=== PATIENT | male | born 1950 | race Caucasian/White ===

== ENCOUNTER 2018-08-25 11:41 | Inpatient (IN) | payer MEDICARE, BC, OTHER ==
[2018-08-25 12:20] LABS: BASO # 0.1 10^3/uL (0.0-0.2); BASO % 0.4 % (0.0-1.0); EOS % 0.1 % (0.0-3.0); HEMATOCRIT 49.1 % (42.0-52.0); HEMOGLOBIN 16.6 g/dl (13.5-17.5); IMMATURE GRANULOCYTE % 0.7 % (0-3.0); LYMPH # 0.5 10^3/uL (1.5-4.5); LYMPH % 4.3 % (24.0-44.0); MEAN CORPUSCULAR HEMOGLOBIN 30.8 pg (27.0-33.0); MEAN CORPUSCULAR HGB CONC 33.8 g/dl (32.0-36.5); MEAN CORPUSCULAR VOLUME 91.1 fl (80.0-96.0); MONO # 0.4 10^3/uL (0.0-0.8); MONO % 3.1 % (0.0-5.0); NEUTROPHILS # 10.9 10^3/uL (1.8-7.7); NEUTROPHILS % 91.4 % (36.0-66.0); PLATELET COUNT, AUTOMATED 193 10^3/uL (150-450); RED BLOOD COUNT 5.39 10^6/uL (4.30-6.10); RED CELL DISTRIBUTION WIDTH 11.9 % (11.5-14.5); WHITE BLOOD COUNT 11.9 10^3/uL (4.0-10.0)
[2018-08-25] MEDS: ONDANSETRON 4MG/2ML VIAL (J2405) IV ×3 (12:32→23:09)
[2018-08-25] MEDS: LABETALOL HCL 100 MG/20 ML VIAL IV ×2 (12:33→13:52)
[2018-08-25 12:49] LABS: INR 0.97
[2018-08-25 12:50] LABS: PARTIAL THROMBOPLASTIN TIME 29.7 SECONDS (25.4-37.6)
[2018-08-25 12:56] LABS: ALBUMIN 4.2 GM/DL (3.2-5.2); ALBUMIN/GLOBULIN RATIO 1.45 (1.00-1.93); ALKALINE PHOSPHATASE 89 U/L (45-117); ALT/SGPT 56 U/L (12-78); ANION GAP 16 MEQ/L (8-16); AST/SGOT 24 U/L (7-37); BILIRUBIN,DIRECT 0.2 MG/DL (0.0-0.2); BILIRUBIN,TOTAL 0.5 MG/DL (0.2-1.0); BLOOD UREA NITROGEN 25 MG/DL (7-18); CALCIUM LEVEL 9.2 MG/DL (8.8-10.2); CARBON DIOXIDE LEVEL 23 MEQ/L (21-32); CHLORIDE LEVEL 103 MEQ/L (98-107); CPK CREATINE PHOSPHOKINASE 103 U/L (39-308); CREATININE FOR GFR 1.44 MG/DL (0.70-1.30); GLOMERULAR FILTRATION RATE 51.9 (>49); GLUCOSE, FASTING 243 MG/DL (70-100); LIPASE 137 U/L (73-393); MB/CK RELATIVE INDEX 3.59 (< OR =4); POTASSIUM SERUM 3.9 MEQ/L (3.5-5.1); SODIUM LEVEL 142 MEQ/L (136-145); TOTAL PROTEIN 7.1 GM/DL (6.4-8.2); TROPONIN I < 0.02 NG/ML (< 0.10)
[2018-08-25] MEDS: hydrALAZINE INJ 20 MG/ML VIAL IV ×2 (14:40→20:28)
[2018-08-25] MEDS ORDERED: ACETAMINOPHEN TAB 650MG DOSE (2X325MG) PO (14:45)
[2018-08-25] MEDS: GASTROGRAFIN SOLUTION 30ML PO ×2 (14:59→16:00)
[2018-08-25] MEDS ORDERED: GLUCAGON FOR INJ 1 MG VIAL (J1610) SC (15:00)
[2018-08-25] MEDS ORDERED: DEXTROSE 50% 50 ML SYRINGE IV (15:00)
[2018-08-25] MEDS ORDERED: GLUCOSE 4 GM CHEW TABLET PO (15:00)
[2018-08-25 15:54] LABS: ESTIMATED AVERAGE GLUCOSE 186 MG/DL (60-110); HEMOGLOBIN A1c 8.1 %
[2018-08-25] MEDS ORDERED: ISOVUE-370 76% 100ML VIAL (Q9967) As Ordered (16:07)
[2018-08-25] MEDS: QUINAPRIL 20 MG TAB PO (16:35)
[2018-08-25] MEDS: ASPIRIN 81 MG ENTERIC TAB PO (16:35)
[2018-08-25] MEDS: ATORVASTATIN 20 MG TAB PO (16:35)
[2018-08-25] MEDS: ATENOLOL 25 MG TAB PO (16:35)
[2018-08-25] MEDS: NS 1,000 ML IV (16:39)
[2018-08-25] MEDS: HumaLOG INSULIN (NovoLOG) PER UNIT SC ×2 (17:30→21:00)
[2018-08-25] MEDS: PROMETHAZINE INJ 25 MG/ML VIAL (J2550) IV (17:40)
[2018-08-25 18:44] LABS: CPK CREATINE PHOSPHOKINASE 119 U/L (39-308); MB/CK RELATIVE INDEX 3.11 (< OR =4); TROPONIN I 0.02 NG/ML (< 0.10)
[2018-08-25] MEDS: HEPARIN SOD (PORCINE) 5000 UNITS/ML VIAL SQ (21:37)
[2018-08-25 21:38] LABS: BEDSIDE GLUCOSE 208 MG/DL (80-115)
[2018-08-26 02:40] LABS: CPK CREATINE PHOSPHOKINASE 178 U/L (39-308); MB/CK RELATIVE INDEX 2.25 (< OR =4); TROPONIN I 0.04 NG/ML (< 0.10)
[2018-08-26] MEDS: hydrALAZINE INJ 20 MG/ML VIAL IV (03:49)
[2018-08-26] MEDS: NS 1,000 ML IV (03:49)
[2018-08-26] MEDS: CALCIUM CARBONATE 500 MG CHEW U/D PO (04:45)
[2018-08-26 06:15] LABS: BASO % 0.2 % (0.0-1.0); EOS % 0.2 % (0.0-3.0); HEMATOCRIT 41.1 % (42.0-52.0); IMMATURE GRANULOCYTE % 0.5 % (0-3.0); LYMPH # 0.8 10^3/uL (1.5-4.5); LYMPH % 6.2 % (24.0-44.0); MEAN CORPUSCULAR HEMOGLOBIN 30.4 pg (27.0-33.0); MEAN CORPUSCULAR HGB CONC 33.3 g/dl (32.0-36.5); MEAN CORPUSCULAR VOLUME 91.3 fl (80.0-96.0); MONO # 1.4 10^3/uL (0.0-0.8); MONO % 10.5 % (0.0-5.0); NEUTROPHILS # 10.7 10^3/uL (1.8-7.7); NEUTROPHILS % 82.4 % (36.0-66.0); PLATELET COUNT, AUTOMATED 190 10^3/uL (150-450); RED CELL DISTRIBUTION WIDTH 12.4 % (11.5-14.5)
[2018-08-26 06:20] LABS: HEMOGLOBIN 13.7 g/dl (13.5-17.5)
[2018-08-26 06:40] LABS: ALBUMIN 3.2 GM/DL (3.2-5.2); ALBUMIN/GLOBULIN RATIO 1.14 (1.00-1.93); ALKALINE PHOSPHATASE 63 U/L (45-117); ALT/SGPT 40 U/L (12-78); ANION GAP 9 MEQ/L (8-16); AST/SGOT 17 U/L (7-37); BILIRUBIN,TOTAL 0.4 MG/DL (0.2-1.0); BLOOD UREA NITROGEN 23 MG/DL (7-18); CALCIUM LEVEL 8.5 MG/DL (8.8-10.2); CARBON DIOXIDE LEVEL 24 MEQ/L (21-32); CHLORIDE LEVEL 110 MEQ/L (98-107); CREATININE FOR GFR 1.39 MG/DL (0.70-1.30); GLOMERULAR FILTRATION RATE 54.1 (>49); GLUCOSE, FASTING 237 MG/DL (70-100); MAGNESIUM LEVEL 1.9 MG/DL (1.8-2.4); POTASSIUM SERUM 3.7 MEQ/L (3.5-5.1); SODIUM LEVEL 143 MEQ/L (136-145)
[2018-08-26] MEDS: QUINAPRIL 20 MG TAB PO (09:00)
[2018-08-26] MEDS: HumaLOG INSULIN (NovoLOG) PER UNIT SC ×4 (09:00→19:55)
[2018-08-26] MEDS: ATENOLOL 25 MG TAB PO (09:00)
[2018-08-26] MEDS: HEPARIN SOD (PORCINE) 5000 UNITS/ML VIAL SQ ×2 (09:01→19:54)
[2018-08-26] MEDS: ASPIRIN 81 MG ENTERIC TAB PO (09:01)
[2018-08-26] MEDS: **hydrALAZINE HCL** 25 MG TAB PO ×3 (09:01→19:54)
[2018-08-26] MEDS: ATORVASTATIN 20 MG TAB PO (09:02)
[2018-08-26] MEDS: ONDANSETRON 4MG/2ML VIAL (J2405) IV (09:02)
[2018-08-26] MEDS: MULTIVITAMINS/MINERALS THERAP 1 TAB PO (09:03)
[2018-08-26] MEDS: LEVEMIR (INSULIN DETEMIR) 1 UNITS/0.01ML SC (09:03)
[2018-08-26 10:28] LABS: CPK CREATINE PHOSPHOKINASE 227 U/L (39-308); MB/CK RELATIVE INDEX 2.03 (< OR =4); TROPONIN I 0.05 NG/ML (< 0.10)
[2018-08-26 11:50] LABS: BEDSIDE GLUCOSE 293 MG/DL (80-115)
[2018-08-26] MEDS: PHENYLEPHRINE 2.5% OPHTH SOL 2ML OU (16:28)
[2018-08-26] MEDS: PROPARACAINE 0.5% OPHTH SOL 15ML OU (16:28)
[2018-08-26] MEDS: TROPICAMIDE 1% OPHTH SOLN 2ML OU (16:29)
[2018-08-26 17:36] LABS: BEDSIDE GLUCOSE 207 MG/DL (80-115)
[2018-08-26] MEDS ORDERED: SLF 3 ML SYR IV (18:00)
[2018-08-26] MEDS: SLF 3 ML SYR IV (19:55)
[2018-08-26 19:58] LABS: BEDSIDE GLUCOSE 233 MG/DL (80-115)
[2018-08-26] MEDS: amLODIPine 10 MG TAB PO (23:14)
[2018-08-26] MEDS: GLIMEPIRIDE 2 MG TAB PO (23:15)
[2018-08-27] MEDS: hydrALAZINE INJ 20 MG/ML VIAL IV (03:55)
[2018-08-27] MEDS: SLF 3 ML SYR IV ×3 (05:58→20:26)
[2018-08-27 06:13] LABS: BASO # 0.1 10^3/uL (0.0-0.2); BASO % 0.6 % (0.0-1.0); EOS # 0.2 10^3/uL (0.0-0.50); EOS % 2.7 % (0.0-3.0); HEMATOCRIT 41.2 % (42.0-52.0); HEMOGLOBIN 13.8 g/dl (13.5-17.5); IMMATURE GRANULOCYTE % 0.6 % (0-3.0); LYMPH # 1.1 10^3/uL (1.5-4.5); LYMPH % 13.9 % (24.0-44.0); MEAN CORPUSCULAR HEMOGLOBIN 30.3 pg (27.0-33.0); MEAN CORPUSCULAR HGB CONC 33.5 g/dl (32.0-36.5); MEAN CORPUSCULAR VOLUME 90.4 fl (80.0-96.0); MONO % 12.6 % (0.0-5.0); NEUTROPHILS # 5.4 10^3/uL (1.8-7.7); NEUTROPHILS % 69.6 % (36.0-66.0); PLATELET COUNT, AUTOMATED 149 10^3/uL (150-450); RED BLOOD COUNT 4.56 10^6/uL (4.30-6.10); RED CELL DISTRIBUTION WIDTH 12.2 % (11.5-14.5); WHITE BLOOD COUNT 7.8 10^3/uL (4.0-10.0)
[2018-08-27 06:34] LABS: ALBUMIN 3.3 GM/DL (3.2-5.2); ALBUMIN/GLOBULIN RATIO 1.22 (1.00-1.93); ALKALINE PHOSPHATASE 68 U/L (45-117); ALT/SGPT 41 U/L (12-78); ANION GAP 8 MEQ/L (8-16); AST/SGOT 18 U/L (7-37); BILIRUBIN,TOTAL 0.5 MG/DL (0.2-1.0); BLOOD UREA NITROGEN 20 MG/DL (7-18); CALCIUM LEVEL 8.4 MG/DL (8.8-10.2); CARBON DIOXIDE LEVEL 26 MEQ/L (21-32); CHLORIDE LEVEL 110 MEQ/L (98-107); CREATININE FOR GFR 1.29 MG/DL (0.70-1.30); GLUCOSE, FASTING 205 MG/DL (70-100); MAGNESIUM LEVEL 2.1 MG/DL (1.8-2.4); POTASSIUM SERUM 3.6 MEQ/L (3.5-5.1); SODIUM LEVEL 144 MEQ/L (136-145)
[2018-08-27] MEDS: cloNIDine 0.2 MG TAB PO ×3 (06:57→17:35)
[2018-08-27] MEDS: HumaLOG INSULIN (NovoLOG) PER UNIT SC ×4 (08:19→20:25)
[2018-08-27] MEDS: LEVEMIR (INSULIN DETEMIR) 1 UNITS/0.01ML SC (08:20)
[2018-08-27] MEDS: HEPARIN SOD (PORCINE) 5000 UNITS/ML VIAL SQ ×2 (08:20→20:27)
[2018-08-27] MEDS: ATENOLOL 25 MG TAB PO (08:21)
[2018-08-27] MEDS: ATORVASTATIN 20 MG TAB PO (08:22)
[2018-08-27] MEDS: MULTIVITAMINS/MINERALS THERAP 1 TAB PO (08:22)
[2018-08-27] MEDS: QUINAPRIL 20 MG TAB PO (08:22)
[2018-08-27] MEDS: SITagliptin 50 MG TAB (JANUVIA) PO (08:22)
[2018-08-27] MEDS: GLIMEPIRIDE 2 MG TAB PO ×2 (08:23→20:25)
[2018-08-27] MEDS: ASPIRIN 81 MG ENTERIC TAB PO (08:23)
[2018-08-27 11:57] LABS: BEDSIDE GLUCOSE 236 MG/DL (80-115)
[2018-08-27] MEDS: cloNIDine 0.1 MG TAB PO ×3 (12:08→20:24)
[2018-08-27 16:47] LABS: BEDSIDE GLUCOSE 103 MG/DL (80-115)
[2018-08-27 19:46] LABS: BEDSIDE GLUCOSE 208 MG/DL (80-115)
[2018-08-27] MEDS: amLODIPine 10 MG TAB PO (20:24)
[2018-08-28] MEDS: cloNIDine 0.1 MG TAB PO ×2 (00:40→05:48)
[2018-08-28] MEDS: cloNIDine 0.2 MG TAB PO ×2 (05:48)
[2018-08-28] MEDS: SLF 3 ML SYR IV (05:49)
[2018-08-28 06:45] LABS: BASO # 0.1 10^3/uL (0.0-0.2); BASO % 0.9 % (0.0-1.0); EOS # 0.4 10^3/uL (0.0-0.50); EOS % 6.1 % (0.0-3.0); HEMATOCRIT 40.9 % (42.0-52.0); HEMOGLOBIN 13.3 g/dl (13.5-17.5); IMMATURE GRANULOCYTE % 0.9 % (0-3.0); LYMPH # 1.2 10^3/uL (1.5-4.5); LYMPH % 17.6 % (24.0-44.0); MEAN CORPUSCULAR HGB CONC 32.5 g/dl (32.0-36.5); MEAN CORPUSCULAR VOLUME 92.1 fl (80.0-96.0); MONO # 0.9 10^3/uL (0.0-0.8); MONO % 12.4 % (0.0-5.0); NEUTROPHILS # 4.3 10^3/uL (1.8-7.7); NEUTROPHILS % 62.1 % (36.0-66.0); PLATELET COUNT, AUTOMATED 149 10^3/uL (150-450); RED BLOOD COUNT 4.44 10^6/uL (4.30-6.10); WHITE BLOOD COUNT 6.9 10^3/uL (4.0-10.0)
[2018-08-28 07:08] LABS: ALBUMIN/GLOBULIN RATIO 1.07 (1.00-1.93); ALKALINE PHOSPHATASE 67 U/L (45-117); ALT/SGPT 49 U/L (12-78); ANION GAP 8 MEQ/L (8-16); AST/SGOT 27 U/L (7-37); BILIRUBIN,TOTAL 0.7 MG/DL (0.2-1.0); BLOOD UREA NITROGEN 20 MG/DL (7-18); CALCIUM LEVEL 7.9 MG/DL (8.8-10.2); CARBON DIOXIDE LEVEL 26 MEQ/L (21-32); CHLORIDE LEVEL 106 MEQ/L (98-107); CREATININE FOR GFR 1.37 MG/DL (0.70-1.30); GLUCOSE, FASTING 197 MG/DL (70-100); MAGNESIUM LEVEL 1.9 MG/DL (1.8-2.4); POTASSIUM SERUM 3.6 MEQ/L (3.5-5.1); SODIUM LEVEL 140 MEQ/L (136-145); TOTAL PROTEIN 5.8 GM/DL (6.4-8.2)
[2018-08-28] MEDS: HumaLOG INSULIN (NovoLOG) PER UNIT SC (08:02)
[2018-08-28] MEDS: HEPARIN SOD (PORCINE) 5000 UNITS/ML VIAL SQ (08:02)
[2018-08-28] MEDS: ATORVASTATIN 20 MG TAB PO (08:03)
[2018-08-28] MEDS: LEVEMIR (INSULIN DETEMIR) 1 UNITS/0.01ML SC (08:03)
[2018-08-28] MEDS: QUINAPRIL 20 MG TAB PO (08:03)
[2018-08-28] MEDS: ATENOLOL 25 MG TAB PO (08:04)
[2018-08-28] MEDS: GLIMEPIRIDE 2 MG TAB PO (08:04)
[2018-08-28] MEDS: MULTIVITAMINS/MINERALS THERAP 1 TAB PO (08:04)
[2018-08-28] MEDS: ASPIRIN 81 MG ENTERIC TAB PO (08:04)
[2018-08-28] MEDS: SITagliptin 50 MG TAB (JANUVIA) PO (08:05)
[2018-09-01 00:07] LABS: HSV TYPE I IgM AB <1:10 titer (<1:10); HSV TYPE II IgG SPECIFIC <0.91 index (0.00-0.90); HSV TYPE II IgM ABY <1:10 titer (<1:10)
== END 2018-08-28 11:13 | disposition home or self-care (01) | DRG 123 ==
LOC: M MSPAV 08-27 21:07 → M ED 11:41 → M ED INP 15:55 → M PCU 21:09
DX: H49.22 Sixth [abducent] nerve palsy, left eye (principal); I12.9 Hypertensive chronic kidney disease with stage 1 through stage 4 chronic kidney disease, or unspecified chronic kidney disease; E78.5 Hyperlipidemia, unspecified; E66.9 Obesity, unspecified; I16.0 Hypertensive urgency; N18.3 Chronic kidney disease, stage 3 (moderate); E11.22 Type 2 diabetes mellitus with diabetic chronic kidney disease; R11.2 Nausea with vomiting, unspecified; J30.2 Other seasonal allergic rhinitis; H35.033 Hypertensive retinopathy, bilateral; H10.13 Acute atopic conjunctivitis, bilateral; H53.2 Diplopia; E27.8 Other specified disorders of adrenal gland; K44.9 Diaphragmatic hernia without obstruction or gangrene; K21.0 Gastro-esophageal reflux disease with esophagitis; Z90.49 Acquired absence of other specified parts of digestive tract; Z96.641 Presence of right artificial hip joint; Z79.84 Long term (current) use of oral hypoglycemic drugs; Z68.35 Body mass index [BMI] 35.0-35.9, adult; Z79.82 Long term (current) use of aspirin; Z79.899 Other long term (current) drug therapy

== ENCOUNTER → 2019-01-20 | Outpatient (REF) | payer MEDICARE, OTHER ==
[~2019-01-20] MED LIST: ACCU1TAB2 PO; AMLO10TA5 PO; ASPI1TAB15 PO; ATEN25TA PO; ATOR1TAB21 PO; CLONI1TA PO; FISH1000 PO; GLIM4TAB PO; JANU50TA25 PO; QUIN1TAB4 PO; QUIN324C2 PO; TRES1INJ2 SQ; TRUL0.5I SQ; VITMTA PO
[2019-01-20 14:15] LABS: AMORPHOUS SEDIMENT SMALL (NEGATIVE); APPEARANCE, URINE HAZY (CLEAR); BACTERIA, URINE AUTO NEGATIVE (NEGATIVE); BILIRUBIN, URINE AUTO NEGATIVE (NEGATIVE); BLOOD, URINE BLOOD NEGATIVE (NEGATIVE); CALCIUM OXALATE CRYSTALS SMALL; COLOR, URINE YELLOW (YELLOW); GLUCOSE, URINE (UA) AUTO 3+ mg/dL (NEGATIVE); KETONE, URINE AUTO NEGATIVE (NEGATIVE); LEUKOCYTE ESTERASE, URINE AUTO 1+ (NEGATIVE); NITRITE, URINE AUTO NEGATIVE (NEGATIVE); PROTEIN, URINE AUTO 1+ mg/dL (NEGATIVE); RBC, URINE AUTO 2 /HPF (0-3); SQUAMOUS EPITHELIAL CELL UR AU 1 /HPF (0-6); UROBILINOGEN, URINE AUTO 0.2 mg/dL (0.0-2.0); WBC, URINE AUTO 16 /HPF (0-3)
== END ==
LOC: M LAB REF 13:09
PROVIDERS: ATTEND Nurse Practitioner Women's Health
DX: R97.20 Elevated prostate specific antigen [PSA] (principal)
CPT/HCPCS: 81001; 87086; G0463

== ENCOUNTER → 2019-02-16 | Outpatient (CLI) | payer MEDICARE, OTHER ==
--- NOTE | 2019-02-16 14:26 | REP ---
Prostate sonography: History: Elevated PSA Sonographic findings: Trans rectal prostate sonography demonstrates unremarkable seminal vesicles. Prostate gland is heterogeneously enlarged with calcifications and cystic changes noted. Glandular dimensions are measured at 4.6 x 4.1 x 5.4 cm with a calculated glandular volume of 52.3 ml. Transrectal sonographic guidance is provided to Dr. Gregorio who performed trans rectal ultrasound guided needle biopsy procedure . Electronically Signed by Rolando Pritchett MD 02/16/2019 02:18 P
== END ==
LOC: M SMT PRO 09:50
PROVIDERS: ATTEND Urology
DX: C61 Malignant neoplasm of prostate (principal)
CPT/HCPCS: 55700; 76872; 76942; G0416

== ENCOUNTER → 2019-03-04 | Outpatient (CLI) | payer MEDICARE, BC, OTHER ==
[~2019-03-04] MED LIST changes: +ISOVUE-370 76% 125ML VIAL (Q9967 PER ML) As Ordered ONE
--- NOTE | 2019-03-04 10:22 | REP ---
CT study abdomen and pelvis with IV but without oral contrast: History: Prostate carcinoma. Comparison CT study August 25, 2018. CT contrast dose: 100 ml of intravenous Isovue 370. CT findings: Digital preliminary spot worker radiograph demonstrates clips in the right lower quadrant post appendectomy, a right hip prosthesis, and a large left urinary tract calculus in the mid abdomen. This was previously noted to be in the left renal pelvis. Axial CT images demonstrate that the lung bases are essentially clear. The large calculus seen on the spot worker view is again noted to be in the renal pelvis. This measures 19 x 11 x 13 mm. It does not cause hydronephrosis. There is, however, atrophy of the left kidney with slightly asymmetric and decreased contrast enhancement in the left renal parenchyma. These findings are unchanged. There is a tiny intrarenal calcification in the lower pole collecting system of the left kidney. No right renal stone is seen. No renal mass lesion is observed. Tiny cortical cysts are noted in the left kidney. No focal liver lesion is seen. There is evidence of mild fatty infiltration of the liver. An accessory splenule is noted. Bilateral adrenal gland hyperplasia is again noted unchanged. The gallbladder and the pancreas are unremarkable. No retroperitoneal mass or adenopathy is seen. There is left colonic diverticulosis without CT evidence of diverticulitis. Pelvic CT images demonstrate prostate enlargement. There are a few dystrophic calcifications in the prostate. There are also some dystrophic calcifications in the soft tissues outside the pelvis medial to the right hip prosthesis. No pelvic mass or adenopathy is seen. No lytic or blastic bony destructive lesion is seen. There are degenerative spondylosis changes in the lumbar spine and there is evidence of lower lumbar central canal stenosis again noted. Impression: Enlarged prostate containing dystrophic calcifications. There is a large left renal pelvis calculus associated with atrophy of the left kidney and slightly impaired contrast enhancement unchanged. No hydronephrosis. No mass or adenopathy is seen. Electronically Signed by Rolando Pritchett MD 03/04/2019 01:03 P
--- NOTE | 2019-03-04 12:24 | REP ---
WHOLE BODY BONE SCAN: Following the intravenous administration of 21.7 millicuries technetium 99m MDP, the patient's whole body is imaged in the anterior and posterior projections. Additional oblique and lateral views are obtained as well. Scattered arthritic uptake is seen throughout the spine. There is also arthritic uptake in the wrist joints bilaterally, to a minimal extent in the ankles and feet, and both shoulders. Photopenic area in the proximal right femur is compatible with a metallic prosthesis. I see no significant evidence of metastatic uptake. Renal and bladder activity are seen. IMPRESSION: Scattered areas of arthritic uptake with no compelling scintigraphic evidence of osseous metastases. Electronically Signed by Nawaf Johns MD 03/04/2019 03:14 P
== END ==
LOC: M RAD 07:54
PROVIDERS: ATTEND Urology
DX: C61 Malignant neoplasm of prostate (principal); Z90.49 Acquired absence of other specified parts of digestive tract; Z96.641 Presence of right artificial hip joint; N20.0 Calculus of kidney; K57.30 Diverticulosis of large intestine without perforation or abscess without bleeding; M43.16 Spondylolisthesis, lumbar region; M48.061 Spinal stenosis, lumbar region without neurogenic claudication; N40.0 Benign prostatic hyperplasia without lower urinary tract symptoms; N26.1 Atrophy of kidney (terminal)
CPT/HCPCS: 74177; 78306; A9503; Q9967

== ENCOUNTER → 2019-03-13 | Outpatient (CLI) | payer MEDICARE, BC, OTHER ==
[~2019-03-13] MED LIST changes: -ISOVUE-370 76% 125ML VIAL (Q9967 PER ML) As Ordered ONE
--- NOTE | 2019-03-13 08:59 | REP ---
Chest x-ray: Two views. History: Prostate cancer. Preop. Comparison study: August 25, 2018. Findings: The lungs are symmetrically aerated and clear. Pleural angles are sharp. Nipple silhouettes project at the bases. Heart size is normal. There are degenerative changes in the thoracic spine as before. Impression: No active disease. Electronically Signed by Rolando Pritchett MD 03/13/2019 08:50 A
[2019-03-13 09:20] LABS: HEMATOCRIT 46.7 % (42.0-52.0); HEMOGLOBIN 15.1 g/dl (13.5-17.5); MEAN CORPUSCULAR HEMOGLOBIN 30.3 pg (27.0-33.0); MEAN CORPUSCULAR HGB CONC 32.3 g/dl (32.0-36.5); MEAN CORPUSCULAR VOLUME 93.6 fl (80.0-96.0); PLATELET COUNT, AUTOMATED 186 10^3/uL (150-450); RED BLOOD COUNT 4.99 10^6/uL (4.30-6.10); WHITE BLOOD COUNT 7.1 10^3/uL (4.0-10.0)
[2019-03-13 09:37] LABS: CALCIUM LEVEL 9.1 MG/DL (8.8-10.2); CREATININE FOR GFR 1.47 MG/DL (0.70-1.30); GLOMERULAR FILTRATION RATE 50.6 (>49); POTASSIUM SERUM 4.3 MEQ/L (3.5-5.1)
[2019-03-13 09:47] LABS: INR 1.01; PROTHROMBIN TIME 13.4 SECONDS (12.1-14.4)
[2019-03-13 09:48] LABS: PARTIAL THROMBOPLASTIN TIME 30.2 SECONDS (25.4-37.6)
== END ==
LOC: M LAB 08:14
PROVIDERS: ATTEND Urology
DX: Z01.818 Encounter for other preprocedural examination (principal); C61 Malignant neoplasm of prostate

== ENCOUNTER 2019-03-24 07:23 | Inpatient (IN) | payer MEDICARE, BC, OTHER ==
[~2019-03-24] VITALS: Ht 185.4 cm; Wt 124.7 kg
[~2019-03-24 07:23] MED LIST changes: +HEPARIN SOD (PORCINE) 5000 UNITS/ML VIAL SQ ONE; +LIDOCAINE 1% MDV 20ML VIAL SQ PRN; +METF500T13 PO; +MUCI600T31 PO; +QUIN20TA48 PO; +QUIN40TA26 PO; +fish oil PO
[2019-03-24] MEDS: LR 1,000 ML IV SCH ×2 (09:59→17:00)
[2019-03-24] MEDS ORDERED: ceFAZolin 2 GM/D5W 50 ML IV BAG (J0690 PER 500MG) As Ordered ONE (10:37)
[2019-03-24] MEDS ORDERED: PROPOFOL 200 MG/20 ML VIAL As Ordered ONE ×2 (12:32→15:23)
[2019-03-24] MEDS ORDERED: LIDOCAINE 2% INJ 100 MG/5 ML SDV (FOR ANES.) As Ordered ONE (12:32)
[2019-03-24] MEDS ORDERED: ROCURONIUM BROMIDE 50 MG/5 ML VIAL As Ordered ONE ×2 (12:32→15:23)
[2019-03-24] MEDS ORDERED: fentaNYL 250 MCG/5 ML INJECTION (J3010) As Ordered ONE (12:32)
[2019-03-24] MEDS ORDERED: MIDAZOLAM INJ 2 MG/2 ML VIAL (J2250) As Ordered ONE (12:32)
[2019-03-24] MEDS ORDERED: BUPIVACAINE HCL 0.25% 30 ML VIAL As Ordered ONE (14:34)
[2019-03-24] MEDS ORDERED: LIDOCAINE 1% SDV INJ 30 ML VIAL As Ordered ONE (14:34)
[2019-03-24] MEDS ORDERED: MORPHINE 4 MG/ML 1ML VIAL/SYRINGE (J2270) IV PRN (14:45)
[2019-03-24] MEDS ORDERED: DEXTROSE 50% 50 ML SYRINGE IV PRN (14:45)
[2019-03-24] MEDS ORDERED: ACETAMINOPHEN TAB 650MG DOSE (2X325MG) PO PRN (14:45)
[2019-03-24] MEDS ORDERED: GLUCOSE 4 GM CHEW TABLET PO PRN (14:45)
[2019-03-24] MEDS ORDERED: PERCOCET 5MG/325MG TAB PO PRN ×3 (14:45→22:30)
[2019-03-24] MEDS ORDERED: ONDANSETRON 4MG/2ML VIAL (J2405) IV PRN ×2 (14:45→22:30)
[2019-03-24] MEDS ORDERED: GLUCAGON FOR INJ 1 MG VIAL (J1610) SC PRN (14:45)
[2019-03-24] MEDS ORDERED: PHENYLephrine HCL 500 MCG/5 ML (100MCG/ML) SYRINGE (J2370) As Ordered ONE (15:24)
[2019-03-24] MEDS ORDERED: dexameTHASONE 4 MG/ML 1ML VIAL (J1100) As Ordered ONE (15:24)
[2019-03-24] MEDS ORDERED: ePHEDrine SULFATE 25 MG/5 ML(5MG/ML) SYRINGE As Ordered ONE ×2 (15:28→18:43)
[2019-03-24] MEDS: HumaLOG INSULIN (NovoLOG) PER UNIT SC SCH (17:30)
[2019-03-24] MEDS ORDERED: GLYCOPYRROLATE INJ 0.2 MG/ML 2 ML VIAL As Ordered ONE (19:18)
[2019-03-24] MEDS ORDERED: ONDANSETRON 4MG/2ML VIAL (J2405) As Ordered ONE (19:18)
[2019-03-24] MEDS ORDERED: METOCLOPRAMIDE INJ 10MG/2ML VIAL (J2765) As Ordered ONE (19:18)
[2019-03-24] MEDS ORDERED: ceFAZolin 1GM INJ (J0690 PER 500MG) As Ordered ONE (19:56)
[2019-03-24] MEDS: ceFAZolin SOD 1 GM in D5W MINI-BAG PLUS 50 ML IV SCH (20:00)
[2019-03-24] MEDS ORDERED: HumaLOG INSULIN (NovoLOG) PER UNIT SC SCH (21:00)
[2019-03-24] MEDS ORDERED: amLODIPine 10 MG TAB PO SCH (21:00)
[2019-03-24] MEDS ORDERED: QUINAPRIL 20 MG TAB PO SCH (21:00)
--- NOTE | 2019-03-24 21:55 | ROOPDOC ---
[facility] Report Of Operation Report of Operation DATE OF PROCEDURE: 03/24/19 PREPROCEDURE DIAGNOSES: Prostate Cancer. POSTPROCEDURE DIAGNOSES: Prostate Cancer. PROCEDURE: Robotic-assisted Laparoscopic Radical Prostatectomy with Bilateral Pelvic Lymph Node Dissection, Laparoscopic Lysis of Adhesions. SURGEON: Nura Mcmahon MD HORTICULTURAL FARMWORKER: Hayley Adan NP ANESTHESIA: General. OPERATIVE INDICATIONS: This is a 69 year old male with intermediate risk clinical T1c Brandi 4+4 prostate cancer, here today for the above procedure for treatment. DESCRIPTION OF PROCEDURE: The patient was brought to the operating room and general anesthesia was induced. Prophylactic antibiotics were infused. He was then placed in the supine position and prepped and draped in the usual sterile fashion. At this point, a Ferrara catheter was inserted into the bladder and the balloon was filled with 10 mL of sterile water. We then made a midline incision just above the umbilicus for an 8 mm port. A Veress needle was utilized to achieve pneumoperitoneum. Next, an 8 mm port was inserted into the incision and subsequently a camera was inserted. There were no injuries from the Veress needle or initial trocar placement. At this point, we were not able to place all of the remaining ports due to a large amount of bowel adhesions to the anterior abdominal wall. We were able to place the 12 mm assistant loan processor port. We then inserted the camera through that port and utilized laparoscopic scissors to take down all of the adhesions. This took approximately one and a half hours to do. Then three robotic ports were placed in the usual configuration in line just below the level of the umbilicus. Once all the ports were placed, the robot was docked. Additional lysis of adhesions between the sigmoid colon and abdominal wall was then performed. The bladder was then released from the anterior abdominal wall using electrocautery. Once the bladder was dropped, the fat overlying the prostate was cleared using electrocautery. The superficial dorsal vein was controlled with electrocautery. The endopelvic fascia was opened on both sides and the dorsal venous complex was cleared. Next, a #0 Vicryl [id number]-yx-mcqot stitch was placed around the dorsal venous complex. Once that was done, the bladder was opened and dissected away from the prostate. At this point, the prostate was lifted up. At this point, the prostate was lifted up. The vasa deferentia were identified in the midline. They were controlled with electrocautery and then transected. The seminal vesicles were also dissected off bilaterally. The rectum was safely mobilized away from the prostate. At this point I ligated and transected bilateral prostatic pedicles using the Harmonic scalpel. The pedicles were carried towards the apex. After taking care of the pedicles and mobilizing the rectum off the prostate below, the prostate was only connected by the urethra. At this point, the dorsal venous complex was transected with electrocautery. The urethra was then opened and the catheter was withdrawn and the posterior urethra was transected, thus freeing the prostate. At this point, we checked for hemostasis and it did appear very good. Next, we performed bilateral pelvic lymph node dissection. This was done in a standard fashion. The limits of dissection were the iliac vein proximally, the obturator nerve distally, the pelvic sidewall laterally, and the bladder medially. All lymphatic tissue within these limits was removed. I performed the same procedure on both the right and left sides. Hemostasis was then obtained with a combination of bipolar electrocautery and Weck clips. The lymphatic packets were then placed in separate Endo Catch bags for future retrieval. Once hemostasis was confirmed, I then moved on to perform the vesicourethral anastomosis. The vesicourethral anastomosis was performed in running fashion using a Quill stitch. Once this was done, the final #20-Wolof Ferrara catheter was placed. The balloon was filled with 15 mL of sterile water. Upon completion of the vesicourethral anastomosis, it was tested by filling the bladder with sterile water. The anastomosis appeared to be watertight. At this point, the prostate and seminal vesicles were placed in an Endo Catch bag for future retrieval. The robot was then undocked. A Davi-Marleny fascial closure device was utilized to place a #0 Vicryl suture between the fascia of the 12 mm assistant loan processor port. At this point, a Leoncio- Fernandez drain was brought in through the left robotic port skin site and the drain was positioned anterior to the bladder. The drain was secured to the skin with #2-0 Ethilon suture. Next, all the remaining ports were removed and there did not appear to be any bleeding from any of the port sites. The prostate, as well as the lymphatic packets were then extracted from the camera port site after the skin was extended. The fascia in this incision was then closed with a running #0 Vicryl stitch. The previously placed #0 Vicryl free ties through the assistant loan processor port were then tied down and all incisions were irrigated. Last, all of the incisions were closed with running subcuticular #4-0 Monocryl sutures. Local anesthesia was applied. Dermabond was then applied to the incisions. This marked the conclusion of the procedure. The patient was then awakened from anesthesia and transported to the recovery room in stable condition. ESTIMATED BLOOD LOSS: 50 mL. COMPLICATIONS: None. SPECIMENS: Prostate and seminal vesicles, right pelvic lymph nodes, left pelvic lymph nodes. PLAN: The patient will be admitted to the hospital postoperatively, and he will likely be discharged home within the next 1-2 days. NURA MCMAHON MD Mar 24, 2019 21:55
[2019-03-24 22:29] LABS: HEMATOCRIT 46.5 % (42.0-52.0); HEMOGLOBIN 14.9 g/dl (13.5-17.5); MEAN CORPUSCULAR HEMOGLOBIN 30.5 pg (27.0-33.0); MEAN CORPUSCULAR VOLUME 95.1 fl (80.0-96.0); PLATELET COUNT, AUTOMATED 193 10^3/uL (150-450); RED BLOOD COUNT 4.89 10^6/uL (4.30-6.10); WHITE BLOOD COUNT 17.1 10^3/uL (4.0-10.0)
[2019-03-24] MEDS ORDERED: METOCLOPRAMIDE INJ 10MG/2ML VIAL (J2765) IV PRN (22:30)
[2019-03-24] MEDS ORDERED: LR 1,000 ML IV SCH (22:30)
[2019-03-24] MEDS ORDERED: fentaNYL 100 MCG/2 ML INJECTION (J3010) IV PRN (22:30)
[2019-03-24] MEDS: NS 1,000 ML IV SCH ×2 (22:38→23:11)
[2019-03-24 22:45] VITALS: BP 168/82
[2019-03-24 22:53] LABS: CALCIUM LEVEL 8.2 MG/DL (8.8-10.2); CREATININE FOR GFR 1.95 MG/DL (0.70-1.30); GLOMERULAR FILTRATION RATE 36.5 (>49); POTASSIUM SERUM 4.4 MEQ/L (3.5-5.1)
[2019-03-24] MEDS: DOCUSATE SODIUM 100 MG CAP PO SCH (23:11)
[2019-03-24] MEDS: HEPARIN SOD (PORCINE) 5000 UNITS/ML VIAL SC SCH (23:11)
[2019-03-24 23:15] VITALS: BP 170/84
[2019-03-25] VITALS (7 sets, daily range): BP systolic 140–150; BP diastolic 68–86
[2019-03-25] MEDS: ceFAZolin SOD 1 GM in D5W MINI-BAG PLUS 50 ML IV SCH (04:10)
[2019-03-25] MEDS: HEPARIN SOD (PORCINE) 5000 UNITS/ML VIAL SC SCH ×2 (05:40→13:31)
[2019-03-25] MEDS: NS 1,000 ML IV SCH (05:40)
[2019-03-25 06:49] LABS: MEAN CORPUSCULAR HEMOGLOBIN 30.6 pg (27.0-33.0); MEAN CORPUSCULAR HGB CONC 32.6 g/dl (32.0-36.5); MEAN CORPUSCULAR VOLUME 93.9 fl (80.0-96.0); PLATELET COUNT, AUTOMATED 176 10^3/uL (150-450); RED BLOOD COUNT 4.58 10^6/uL (4.30-6.10); WHITE BLOOD COUNT 12.7 10^3/uL (4.0-10.0)
[2019-03-25 07:07] LABS: CALCIUM LEVEL 7.7 MG/DL (8.8-10.2); CREATININE FOR GFR 1.52 MG/DL (0.70-1.30); GLOMERULAR FILTRATION RATE 48.6 (>49); POTASSIUM SERUM 4.2 MEQ/L (3.5-5.1)
--- NOTE | 2019-03-25 07:45 | IPNPDOC ---
Subjective Review oF Systems Chief Complaint The patient is a 69-year-old male admitted with a reason for visit of Prostate Cancer. Events since Last Encounter No acute events o/n. Good pain control. No n/v. Has not ambulated yet. No chest pain or SOB. No flatus yet. No f/c/ns. Objective Physical Examination General Exam: Alert, Cooperative, No Acute Distress ABDOMEN EXAM: Soft, Tenderness (minimal), Other (incisions clean/dry/intact; KATLYN w/ serosanguinous output) Skin Exam: Nl turgor and temperature Psych Exam: Mental status NL, Mood NL Other physical findings catheter draining light pink urine Vital Signs/I&O Vital Signs Date Time Temp Pulse Resp B/P (MAP) Pulse Ox O2 Delivery O2 Flow Rate FiO2 03/25/19 06:00 98.2 87 18 148/82 (104) 98 2.0 I&O- Last 24 Hours up to 6 AM 03/25/19 06:00 Intake Total 4637 ml Output Total 1170 ml Balance 3467 ml Laboratory Data Labs 24H Laboratory Tests 2 03/24/19 10:26: Bedside Glucose (Misc Panel) 144H 03/24/19 21:57: Bedside Glucose (Misc Panel) 194H 03/24/19 22:11: Nucleated Red Blood Cells % (auto) 0.0, Anion Gap 7L, Glomerular Filtration Rate 36.5L, Blood Urea Nitrogen 26H, Creatinine 1.95H, Sodium Level 141, Potassium Level 4.4, Chloride Level 109H, Carbon Dioxide Level 25, Calcium Level 8.2L 03/24/19 22:51: Bedside Glucose (Misc Panel) 186H 03/25/19 06:25: Nucleated Red Blood Cells % (auto) 0.0, Anion Gap 7L, Glomerular Filtration Rate 48.6L, Blood Urea Nitrogen 25H, Creatinine 1.52H, Sodium Level 140, Potassium Level 4.2, Chloride Level 108H, Carbon Dioxide Level 25, Calcium Level 7.7L CBC/BMP Laboratory Tests 03/24/19 22:11 Red Blood Count 4.89, Mean Corpuscular Volume 95.1, Mean Corpuscular Hemoglobin 30.5, Mean Corpuscular Hemoglobin Concent 32.0, Red Cell Distribution Width 12.5, Calcium Level 8.2 L 03/25/19 06:25 Red Blood Count 4.58, Mean Corpuscular Volume 93.9, Mean Corpuscular Hemoglobin 30.6, Mean Corpuscular Hemoglobin Concent 32.6, Red Cell Distribution Width 12.6, Calcium Level 7.7 L FSBS Laboratory Tests Test 03/24/19 10:26 03/24/19 21:57 03/24/19 22:51 Range/Units Bedside Glucose (Misc Panel) 144 194 186 80-115 MG/DL A-FIB/CHADSVASC A-FIB History Current/History of A-Fib/PAF?: No Current Oral Anticoagulant The: No Assessment/Plan Date Seen The patient was seen on 03/25/19. Patient Summary This is a 69 y/o M POD 1 s/p RALP w/ BPLND and lap KRIS. He is doing well. Hb is stable. Cr is trending down. UOP has been very good. Plan/VTE VTE Prophylaxis Ordered?: Yes VTE Exclusion Mechanical Proph: N/A:VTE Prophy Ordered VTE Exclusion Pharmacological: N/A:VTE Prophy Ordered Plan/Urinary Catheter Urinary Catheter: Other Catheter: (catheter will need to stay in for 7-10 days for healing of the vesicourethral anastomosis) Plan - d/c IVF - percocet prn pain - cont home meds - strict I/Os - incentive spirometry - SCDs when in bed - SQH - regular diet - possible discharge home later today w/ catheter (will remove the KATLYN drain prio r to discharge) NURA MCMAHON MD Mar 25, 2019 07:45
[2019-03-25] MEDS: DOCUSATE SODIUM 100 MG CAP PO SCH (08:16)
[2019-03-25] MEDS: HumaLOG INSULIN (NovoLOG) PER UNIT SC SCH ×2 (08:18→11:59)
[2019-03-25] MEDS ORDERED: ASPIRIN 81 MG ENTERIC TAB PO SCH (09:00)
[2019-03-25] MEDS ORDERED: QUINAPRIL 20 MG TAB PO SCH (09:00)
[2019-03-25] MEDS ORDERED: ATENOLOL 50 MG TAB PO SCH (09:00)
[2019-03-25] MEDS ORDERED: ATORVASTATIN 20 MG TAB PO SCH (09:00)
[2019-03-25] MEDS ORDERED: OXYC1TAB23 PO (14:50)
[2019-03-25] MEDS ORDERED: COLA100C5 PO (14:50)
[2019-03-25] MEDS ORDERED: APAP325T4 PO (14:50)
[2019-03-25] MEDS ORDERED: ECOT81TA5 PO (14:50)
[2019-03-25] MEDS ORDERED: MACR100C43 PO (14:50)
--- NOTE | 2019-03-26 17:42 | DSES ---
DATE OF ADMISSION: 03/24/2019 DATE OF DISCHARGE: 03/25/2019 ADMISSION DIAGNOSIS: Prostate cancer. DISCHARGE DIAGNOSIS: Prostate cancer. ADMITTING PHYSICIAN: Yeison Gregoiro MD DISCHARGE PHYSICIAN: Yeison Gregorio MD PROCEDURE PERFORMED: Robotic-assisted laparoscopic radical prostatectomy, bilateral pelvic lymph node dissection, and laparoscopic lysis of adhesions on 03/24/2019. HISTORY OF PRESENT ILLNESS: This is a 69-year-old male who was admitted to the hospital after undergoing the above listed procedure. HOSPITALIZATION COURSE: The patient was admitted to the hospital after undergoing the above listed procedure. His postoperative course was unremarkable. By postoperative day #1, all of his labs were within acceptable limits. He had excellent urine output and minimal output from his Leoncio-Fernandez drain. He was ambulating very well and tolerating a regular diet. His pain was very well controlled with oral pain medications. He was, therefore, deemed ready for discharge home. His Leoncio-Fernandez drain was removed. He was discharged home with his catheter in place with a plan for him to followup in the clinic in 7-10 days for catheter removal and to discuss pathology results.
== END 2019-03-25 15:30 | disposition home or self-care (01) | DRG 708 ==
LOC: M OR 07:23 → M MS5PR 22:35
PROVIDERS: ADMIT Urology; ATTEND Urology
PROC: 0TB Urinary System, Excision (ICD-10-PCS; 2019-03-24)
PROC: 8E0W4CZ Robotic Assisted Procedure of Trunk Region, Percutaneous Endoscopic Approach (ICD-10-PCS; 2019-03-24)
PROC: 0VT04ZZ Resection of Prostate, Percutaneous Endoscopic Approach (ICD-10-PCS; principal; 2019-03-24 12:45)
DX: C61 Malignant neoplasm of prostate (principal); E78.5 Hyperlipidemia, unspecified; E11.9 Type 2 diabetes mellitus without complications; I10 Essential (primary) hypertension; D64.9 Anemia, unspecified; Z88.6 Allergy status to analgesic agent; Z79.84 Long term (current) use of oral hypoglycemic drugs; Z79.82 Long term (current) use of aspirin; Z79.899 Other long term (current) drug therapy

== ENCOUNTER → 2019-08-24 | Outpatient (CLI) | payer MEDICARE, BC, OTHER ==
[~2019-08-24] MED LIST changes: +APAP325T4 PO; +COLA100C5 PO; +ECOT81TA5 PO; -HEPARIN SOD (PORCINE) 5000 UNITS/ML VIAL SQ ONE; -LIDOCAINE 1% MDV 20ML VIAL SQ PRN; +MACR100C43 PO; +OXYC1TAB23 PO
== END ==
LOC: M SMT 10:32
PROVIDERS: ATTEND Urology
DX: R97.21 Rising PSA following treatment for malignant neoplasm of prostate (principal)

== ENCOUNTER → 2019-09-07 | Outpatient (CLI) | payer MEDICARE, BC, OTHER ==
[~2019-09-07] MED LIST changes: -GLIM4TAB PO; +GLIM4TAB3 PO
[2019-09-07 14:22] LABS: CALCIUM LEVEL 9.1 MG/DL (8.8-10.2); CREATININE FOR GFR 1.69 MG/DL (0.70-1.30); POTASSIUM SERUM 4.4 MEQ/L (3.5-5.1)
== END ==
LOC: M SMT 08:50
PROVIDERS: ATTEND Urology
DX: C61 Malignant neoplasm of prostate (principal); R97.21 Rising PSA following treatment for malignant neoplasm of prostate
CPT/HCPCS: 36415; 80048; G0463

== ENCOUNTER → 2019-09-14 | Outpatient (CLI) | payer MEDICARE, BC, OTHER ==
[~2019-09-14] MED LIST changes: +ISOVUE-370 76% 100ML VIAL (Q9967) As Ordered ONE
--- NOTE | 2019-09-14 13:07 | REP ---
CT abdomen and pelvis with IV contrast: History: Prostate carcinoma. Rising PSA. Status post robotic assisted radical prostatectomy. Comparison CT study March 04, 2019. CT contrast dose: 50 mL of intravenous Isovue [address] findings: Preliminary digital herpetologist radiograph demonstrates surgical clips in the right lower quadrant and a large calcific opacity projecting medial to the left kidney. Bowel gas pattern is normal. There is minimal left base and right base linear fibrosis. No pleural effusion is seen. There are mild diffuse fatty infiltration changes in the liver. No focal liver lesion is seen. The spleen is unremarkable. There is a small accessory splenule. An atrophic left kidney is again seen with a large renal pelvic calculus as before. This measures 2.1 cm in greatest diameter. No hydronephrosis is seen. There is an intrarenal calculus in the lower pole of the left kidney. There is a small cortical cyst in the upper pole left kidney. No renal mass lesion is observed. No periaortic adenopathy is seen. There is left colonic diverticulosis without CT evidence of diverticulitis. No pelvic adenopathy is seen. The prostate gland is surgically absent. No pelvic mass or adenopathy is appreciated. Urinary bladder is unremarkable. Bone window settings show no bony destructive lesion. The left adrenal gland is slightly full but retains its adreniform shape and is unchanged. No adrenal mass lesion is seen. Findings are compatible with mild adrenal hyperplasia. There is some similar thickening on the right. This is unchanged. Impression: Status post prostatectomy and appendectomy. Left colonic diverticulosis. No pelvic mass or adenopathy is seen. Right hip prosthesis. There is a large calculus in the left renal pelvis as before. Electronically Signed by Rolando Pritchett MD 09/14/2019 06:46 P
--- NOTE | 2019-09-14 13:20 | REP ---
REASON FOR EXAM: History of prostate cancer. COMPARISON: 03/04/2019 which showed no compelling evidence for metastatic disease. Degenerative changes were noted. After the intravenous administration of 22.0 mCi of technetium-99m MDP, a total body bone scan was obtained in the same fashion as the prior exam. Once again, there is a degenerative type uptake pattern seen in the axial and appendicular skeleton in a fashion unchanged from the prior exam. Note is again made of a photopenic defect seen in the right hip from previous hip prosthesis status quo. IMPRESSION: No change from the prior exam. No compelling evidence for metastatic disease. Electronically Signed by Vidal Hawkins DO 09/14/2019 02:15 P
== END ==
LOC: M RAD 07:45
PROVIDERS: ATTEND Urology
DX: K57.30 Diverticulosis of large intestine without perforation or abscess without bleeding (principal); N20.0 Calculus of kidney; C61 Malignant neoplasm of prostate; R97.21 Rising PSA following treatment for malignant neoplasm of prostate; Z90.79 Acquired absence of other genital organ(s); Z96.641 Presence of right artificial hip joint
CPT/HCPCS: 74177; 78306; A9503; Q9967

== ENCOUNTER → 2019-09-23 | Outpatient (CLI) | payer MEDICARE, BC, OTHER ==
[~2019-09-23] MED LIST changes: -ISOVUE-370 76% 100ML VIAL (Q9967) As Ordered ONE
--- NOTE | 2019-09-24 10:41 | RADONC ---
RADIATION ONCOLOGY NEW PATIENT CONSULTATION DATE: 09/23/2019 CHART NUMBER: [id number] DIAGNOSIS: Adenocarcinoma, prostate, Brandi 8 (4+ 4) with extensive perineural invasion and a focus of extraprostatic extension, stage T3a, N0, M0, group stage IIIB, status post robotic assisted prostatectomy. Lymph nodes sampled in the region were negative. ICD-10 CODE: C61. ECOG PERFORMANCE STATUS: 0. HISTORY OF PRESENT ILLNESS: The patient is a 69-year-old male who originally had his prostate biopsied in March of 2019 because of a rising PSA. His feels that his PSA at that time may have been close to 6. It was routine for the patient to have from his primary care physician a PSA value as a routine part of his checkup. Because of the rise a biopsy was performed which revealed adenocarcinoma and he was scheduled for a robotic assisted prostatectomy which was performed on 03/25/2019. He had actually a laparoscopic radical prostatectomy and the site of the main tumor was on the left with the size of the largest focus being 2 cm. Percent of the prostate involved with the tumor was approximately 30% and there was bilateral tumor high-grade and high-grade PIN present. There was a focus of extracapsular extension yet the margins were negative. There was no evidence of seminal vesicle involvement but there was noted perineural invasion but no lymphatic space invasion. He was pathologically stage T3a, N0 and both lymph nodes in the pelvic area examined were negative for tumor. The patient did well following this procedure, it was well tolerated and an additional PSA was obtained on 08/24/2019 which showed it had risen to 4.25. In light of this rather abrupt rise in his PSA post prostatectomy he is referred for evaluation of local regional radiotherapy to the prostate bed. It should be noted that he did have a CT scan of the abdomen and pelvis with IV contrast but without oral contrast on 03/04/2019 and there was no evidence to suggest any metastatic disease. A volume was ordered via ultrasound and it was noted to be 52.3 mm in the overall volume and measured 4.6 x 4.1 x 5.4. This was the actual day of the transrectal ultrasound guided needle biopsy procedure. Because of his elevated PSA we are seeing this gentleman to discuss the logistics of prostatic bed irradiation. PAST MEDICAL HEALTH: He has a history of arthritis, chronic bronchitis, diabetes, hypertension and pneumonia. PAST SURGICAL HEALTH: Appendectomy 1979, prostatectomy see HPI, right hip replacement, tonsillectomy 1979, colonoscopy 11/12/2012. FAMILY HISTORY: No family history of cancer or remarkable family history. His father is due to suicide. Mother from heart disease. SOCIAL HISTORY: He is a one-pack per day smoking history for 11 years. He quit 48 years ago. Alcohol consumption - He drinks occasionally. 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 ALLERGIES: MILK PRODUCTS. CURRENT MEDICATIONS: - metformin 500 mg tablets one with meal orally - Tresiba FlexTouch 100 mg UNT/ML solution pen injector subcutaneous 45 units - Multi-Complete capsule daily - Mucinex 600 mg every 12 hours as needed - glimepiride 4 mg one tablet with breakfast or the first meal of the day three times a day - Trulicity 1.5 mg per 0.5 mL solution per injector - aspirin 81 mg one tablet daily - atenolol 50 mg tablets one tablet orally once a day - atorvastatin 20 mg one tablet orally once per day - Fish oil one per day - amlodipine 10 mg tablets one tablet orally once a day - Quinapril hydrochloride 60 mg daily, 40 mg in the morning and 20 mg in the evening - Quinine sulfate capsule 324 mg once as needed for leg cramps - Colace two in the morning, one in the evening - vitamin B12 - vitamin B6 REVIEW OF SYSTEMS: Respiratory: The patient denies coughing, significant dyspnea, hemoptysis, hiccups, pleuritic chest pain or wheezing. Psychiatric: Denies delusions, hallucinations, mood depression or mood swings. Musculoskeletal: He has cramps in his legs and takes quinine, has some muscle weakness. Hematologic/lymphatic: Denies easy bruising or lymphadenopathy. Genitourinary: Denies dysuria but he does have some incontinence secondary since his surgery. He denies hematuria. He does have impotence and nocturia. Denies renal stone. Disease denies any retrograde ejaculations because he is not able have an erection. He denies scrotal swelling, urgency or urinary color changes. Eyes: Denies blurred vision or double vision, increased lacrimation or night blindness. He also denies photophobia or visual difficulties. EENT: He has some sinusitis occasionally but denies otitis, oral bleeding, mouth dryness, hearing difficulty, esophagitis, epistaxis, ear pain, sputum production, stomatitis, alteration of taste or tinnitus. Constitutional: He occasionally will be fatigued, but denies fever, lethargy, malaise, night sweats, rigors or significant weight change. His appetite is satisfactory. Cardiovascular: He denies significant arrhythmias, chest pain, dyspnea, edema, orthopnea or palpitations. ALLERGIC/IMMUNOLOGIC: He has some food allergies and environmental allergies but no allergies to drugs. Vitals: His weight is 284.2, height 73, temperature 98.3, pulse 74, respirations 20, systolic 151, diastolic 90, O2 saturation 95. HEENT: Normocephalic. EOMs intact. PERRLA. Fundi benign. Lymphatics: No palpable peripheral lymphadenopathy is appreciated in the cervical, supraclavicular, axillary or inguinal lymph node chains. Lungs: Clear. Heart: Regular. Abdomen: Without evidence of hepatomegaly, masses, deep abdominal tenderness. Extremities: Without cyanosis, clubbing or edema. Neurologic: Examination grossly physiologic. IMPRESSION: The patient has evidence of adenocarcinoma of the prostate status post radical laparoscopic robotic assisted prostatectomy. The patient now shows evidence of elevation of his PSA. It has within the last few months risen from 1.95 to the level of 4.25. PLAN: He is a candidate for local regional radiotherapy at the prostate bed because of a recurrence or/persistence. He is referred for salvage radiotherapy and we would recommend local regional radiotherapy therapy directed to the prostate bed with androgen deprivation therapy. He will be referred back to Dr. Yeison Gregorio's office for initiation of androgen deprivation therapy. I have talked with Dr. Gregorio and his office will be contacting this patient next week. The indications, possible side effects of local regional radiotherapy including burning sensation as well as skin irritation and fatigue have been explained to the patient. He also realizes that there is a possibility but unlikely situation that may have to result in his having difficulty with emptying his bladder to the point that he may be even in the future require catheterization, but this is an infrequent side effect. He understands possible side effects and is willing to proceed as outlined. Thank you for referring this fine gentleman to us and allowing us the opportunity of participation in his overall management.
== END ==
LOC: M ONCR 12:36
PROVIDERS: ATTEND Radiology Radiation Oncology
DX: C61 Malignant neoplasm of prostate (principal)

== ENCOUNTER 2019-09-29 13:32 | Outpatient (RCR) | payer MEDICARE, BC, OTHER ==
[2019-09-29 14:37] LABS: HEMATOCRIT 42.4 % (42.0-52.0); MEAN CORPUSCULAR HEMOGLOBIN 31.4 pg (27.0-33.0); NEUTROPHILS % 76.4 % (36.0-66.0); RED BLOOD COUNT 4.46 10^6/uL (4.30-6.10); WHITE BLOOD COUNT 11.8 10^3/uL (4.0-10.0)
--- NOTE | 2019-09-30 08:35 | RADONC ---
RADIATION ONCOLOGY SIMULATION NOTE DATE: 09/29/2019 CHART NUMBER: [id number] SIMULATION NOTE: Mr. Harvey was taken to the CT scan for CT simulation of his prostate field. It was accomplished without difficulty or discomfort. Radiation treatment planning is underway and radiation treatments will begin subsequently. An immobilization device was created and will be used throughout the course of treatment. It was created without difficulty or discomfort. I was physically present throughout the course of CT simulation.
== END 2019-09-30 ==
LOC: M ONCR 13:32
PROVIDERS: ATTEND Radiology Radiation Oncology
DX: C61 Malignant neoplasm of prostate (principal)

== ENCOUNTER 2019-10-27 07:59 | Outpatient (RCR) | payer MEDICARE, BC, OTHER ==
--- NOTE | 2019-10-11 08:46 | RADONC ---
RADIATION ONCOLOGY PROGRESS NOTE DATE: 10/11/2019 CHART NUMBER: [id number] PROGRESS NOTE: Mr. Harvey is presently at a dose of 720 cGy to his prostate and is tolerating treatments quite well at this point with no complaints related to his radiation therapy. He is having no urinary or bowel difficulties. No bone pain. REVIEW OF SYSTEMS: The patient's review of systems is noncontributory. Denies nausea, vomiting, fevers, chills, night sweats, diplopia, headaches, anxiety or depression, anorexia, weight loss, visual disturbances, chest pain, urinary or bowel difficulties, bone pain, or neurological problems. PHYSICAL EXAMINATION: The patient's skin is in good condition with no evidence of radiation change present. There is no moist or dry desquamation. The remainder of his physical exam remains unchanged. Mr. Harvey is tolerating his treatments quite well and radiation will continue as scheduled.
--- NOTE | 2019-10-19 09:09 | RADONC ---
RADIATION ONCOLOGY PROGRESS NOTE DATE: 10/18/2019 CHART NUMBER: [id number] PROGRESS NOTE: Mr. Harvey is presently at a dose of 1620 cGy to his prostate bed and is tolerating treatments quite well at this point with no complaints related to his radiation therapy. He is having no urinary or bowel difficulties. No bone pain. REVIEW OF SYSTEMS: The patient's review of systems is noncontributory. Denies nausea, vomiting, fevers, chills, night sweats, diplopia, headaches, anxiety or depression, anorexia, weight loss, visual disturbances, chest pain, urinary or bowel difficulties, bone pain, or neurological problems. PHYSICAL EXAMINATION: The patient's skin is in good condition with no evidence of radiation change present. There is no moist or dry desquamation. The remainder of his physical exam remains unchanged. Mr. Harvey is tolerating treatments quite well and radiation will continue as scheduled.
--- NOTE | 2019-10-27 06:35 | RADONC ---
RADIATION ONCOLOGY PROGRESS NOTE DATE: 10/25/2019 CHART #: [id number] Mr. Harvey is presently at a dose of 2520 cGy to his prostate bed and is tolerating treatments quite well at this point with no complaints related to his radiation therapy. He is having no urinary or bowel difficulties and no bone pain. REVIEW OF SYSTEMS: The patient's review of systems is noncontributory. Denies nausea, vomiting, fevers, chills, night sweats, diplopia, headaches, anxiety or depression, anorexia, weight loss, visual disturbances, chest pain, urinary or bowel difficulties, bone pain, or neurological problems. PHYSICAL EXAMINATION: The patient's skin is in good condition with no evidence of radiation change present. There is no moist or dry desquamation. The remainder of his physical exam remains unchanged. Mr. Harvey is tolerating treatments quite well and radiation will continue as scheduled.
== END 2019-10-30 ==
LOC: M ONCR 07:59
PROVIDERS: ATTEND Radiology Radiation Oncology
DX: C61 Malignant neoplasm of prostate (principal)

== ENCOUNTER → 2019-11-30 | Outpatient (RCR) | payer MEDICARE, BC, OTHER ==
--- NOTE | 2019-11-02 09:15 | RADONC ---
RADIATION ONCOLOGY NOTE: DATE: 11/02/2019 Mr. Harvey is a 69-year-old gentleman who carries the diagnosis of prostate CA. He is getting treatment to the prostatic bed. So far he has received dose of 3240 cGy in 18 fractions. REVIEW OF SYSTEMS: He has no complaints. He has no bowel problems. Nocturia 3-4 times. Denies dysuria, hematuria. Mr. Harvey is tolerating treatment very well without any unusual side effect. Discussed diet control with bowel movement, drinking liquid prior to radiation therapy to have a stable bladder volume.
--- NOTE | 2019-11-08 13:11 | RADONC ---
RADIATION ONCOLOGY PROGRESS NOTE DATE OF SERVICE: 11/08/2019 CHART NUMBER: [id number]. PROGRESS NOTE: Mr. Harvey is presently at a dose of 3960 cGy to his prostate bed and is tolerating treatments quite well at this point with no significant difficulties related to his radiation therapy. He is having no urinary or bowel problems at this time. REVIEW OF SYSTEMS: The patient's review of systems is noncontributory. He denies nausea, vomiting, fevers, chills, night sweats, diplopia, headaches, anxiety or depression, anorexia, weight loss, visual disturbances, chest pain, urinary or bowel difficulties, bone pain, or neurological problems. PHYSICAL EXAMINATION: The patient's skin is in good condition with no evidence of radiation change present. There is no moist or dry desquamation. The remainder of his physical exam remains unchanged. Mr. Harvey is tolerating treatments quite well, and radiation will continue as scheduled.
--- NOTE | 2019-11-16 16:26 | RADONC ---
RADIATION ONCOLOGY PROGRESS NOTE DATE: 11/15/2019 CHART NUMBER: [id number] PROGRESS NOTE: Mr. Harvey is presently at a dose of 4860 cGy to his prostate bed and is tolerating treatments quite well at this point with no complaints related to his radiation therapy. He is having no urinary or bowel difficulties. No bone pain. REVIEW OF SYSTEMS: The patient's review of systems is noncontributory. Denies nausea, vomiting, fevers, chills, night sweats, diplopia, headaches, anxiety or depression, anorexia, weight loss, visual disturbances, chest pain, urinary or bowel difficulties, bone pain, or neurological problems. PHYSICAL EXAMINATION: The patient's skin is in good condition with no evidence of radiation change present. There is no moist or dry desquamation. The remainder of his physical exam remains unchanged. Mr. Harvey is tolerating treatments quite well and radiation will continue as scheduled.
--- NOTE | 2019-11-25 16:26 | RADONC ---
RADIATION ONCOLOGY PROGRESS NOTE DATE: 11/22/2019 PROGRESS NOTE: Mr. Harvey with a diagnosis of adenocarcinoma of the prostate is currently receiving local regional radiotherapy and he has achieved a dose of 5700 cGy. He is tolerating his radiotherapy reasonably well, denying any nausea, vomiting, diarrhea, dysuria, hematuria or blood per rectum. His energy level is satisfactory and he is able to maintain most of his day-to-day activities without any alteration of his lifestyle. Skin irritation is denied. EXAMINATION: The skin within the irradiated volume shows neither erythema nor desquamation. The remainder of the physical examination is unchanged. IMPRESSION: Tolerating therapy well. PLAN: Treatments to continue. Thank you for allowing us the opportunity of participation in the management of this very fine patient most sincerely.
--- NOTE | 2019-11-29 12:12 | RADONC ---
RADIATION ONCOLOGY PROGRESS NOTE DATE: 11/29/2019 CHART NUMBER: [id number] PROGRESS NOTE: Mr. Harvey with adenocarcinoma of the prostate stage pathologic T3a, N0, M0 is currently receiving local regional radiotherapy and he has achieved a dose of 6300 cGy of an anticipated 6660 cGy. He is tolerating his radiotherapy well, denying any nausea, vomiting, diarrhea, dysuria, hematuria or blood per rectum. He denies skin irritation. EXAMINATION FINDINGS: The skin within the irradiated volume shows no evidence of erythema and certainly no focal desquamation. There is no palpable peripheral lymphadenopathy. Lungs are clear to auscultation and percussion. Heart regular without murmurs. The remainder of the physical examination is unchanged. IMPRESSION: Tolerating therapy well. PLAN: Treatments to continue.
== END ==
LOC: M ONCR 11-01 08:04
PROVIDERS: ATTEND Radiology Radiation Oncology
DX: C61 Malignant neoplasm of prostate (principal)

== ENCOUNTER 2019-12-02 08:00 | Outpatient (RCR) | payer MEDICARE, BC, OTHER ==
[~2019-12-02 08:00] MED LIST changes: -GLIM4TAB3 PO; +GLIM4TAB5 PO
--- NOTE | 2019-12-02 19:19 | RADONC ---
RADIATION ONCOLOGY TREATMENT SUMMARY DATE: 12/02/2019 CHART NUMBER: [id number] DIAGNOSIS: Prostate cancer. STAGE: IIIB, T3a, N0, M0, Brandi score 8 (4-4). ECOG PERFORMANCE STATUS: Zero. TREATMENT SUMMARY: Mr. Harvey is a 69-year-old white male with a diagnosis of a stage III B, T3a, N0, M0 poorly differentiated [place] score 8 (4-4) adenocarcinoma of the prostate who presented to us status post robotic-assisted prostatectomy for consideration of postoperative radiation therapy in attempt to achieve local control. We treated the patient to his prostate bed for a total dose 6660 cGy delivered in 37 fractions of 180 cGy each over 56 elapsed days from 10/06/2019 through 12/02/2019. The patient's prostate bed was treated on a linear accelerator utilizing a 15 MV photon beam via 3D conformal technique with anterior, posterior, left and right lateral anderson. We initially treated a larger field to a dose of 4500 cGy and subsequently coned down to deliver an additional 2160 cGy, once again bringing the prostate bed to a total dose of 6660 cGy. This was done in order to maintain the small bowel and other structures within their tolerance limits. Mr. Harvey tolerated his treatments quite well with no significant difficulties related to his radiation therapy. The patient is scheduled to see me again in 1 month for further followup. He will also continue to be followed by his other physicians as well. Thank you for allowing us to participate in the care of this very pleasant gentleman. If I could be of any further assistance or provide you with any information, please feel free to contact me at anytime, as always. Warm Regards, cc: MD Rakesh Hills PA
== END 2019-12-31 ==
LOC: M ONCR 08:00
PROVIDERS: ATTEND Radiology Radiation Oncology
DX: C61 Malignant neoplasm of prostate (principal)

== ENCOUNTER → 2020-01-03 | Outpatient (CLI) | payer MEDICARE, BC, OTHER | LOC: M PLALAB 08:52 | PROVIDERS: ATTEND Radiology Radiation Oncology | DX: C61 Malignant neoplasm of prostate (principal) ==

== ENCOUNTER → 2020-01-05 | Outpatient (CLI) | payer MEDICARE, BC, OTHER ==
--- NOTE | 2020-01-05 12:43 | RADONC ---
RADIATION ONCOLOGY FOLLOWUP NOTE DATE: 01/05/2020 CHART NUMBER: [id number] DIAGNOSIS: Prostate cancer. STAGE: IIIB, T3a, N0, M0, [place] score 8 (4-4) with extensive perineural invasion and extraprostatic extension. ECOG PERFORMANCE STATUS: 0. FOLLOWUP NOTE: Mr. Harvey is a very pleasant 69-year-old white male with the diagnosis of a stage IIIB, T3a, N0, M0, poorly differentiated Brandi score 8 (4-4) adenocarcinoma of prostate who is presenting to us today for routine followup visit 1 month post completion of external beam radiation therapy. The patient presents today reporting that he is doing quite well with no complaints at this time related to his radiation therapy or disease. He has no urinary or bowel difficulties and no bone pain. The patient's review of systems is noncontributory. He denies nausea, vomiting, fevers, chills, night sweats, diplopia, headaches, anxiety or depression, anorexia, weight loss, visual disturbances, chest pain, urinary or bowel difficulties, bone pain, or neurological problems. PHYSICAL EXAMINATION: The patient is a well-developed, well-nourished male in no acute distress. HEENT exam is normocephalic, atraumatic. Extraocular movements are intact. There is no palpable cervical, supraclavicular, infraclavicular, axillary, or inguinal lymphadenopathy present. Lungs are clear to auscultation and percussion. Heart has a regular rate and rhythm. Abdomen is benign with no hepatosplenomegaly, masses, or tenderness. Rectal examination reveals a normal anal sphincter tone. His prostate is smooth with no evidence of nodularity. Skeletal examination reveals no tenderness to pressure or percussion of the bony skeleton. Extremities reveal no clubbing, cyanosis, or edema. Neurologic exam is grossly intact as is the remainder of the physical examination. ASSESSMENT: The patient is clinically SAMIA at this time. The patient is scheduled to be seen by Dr. Yeison Gregorio in March and is continuing his close followup with him. In light of this I am discharging him from my followup except on an as needed basis.
== END ==
LOC: M ONCR 08:53
PROVIDERS: ATTEND Radiology Radiation Oncology
DX: C61 Malignant neoplasm of prostate (principal)

== ENCOUNTER → 2020-03-02 | Outpatient (REF) | payer MEDICARE, OTHER | LOC: M LABSMT 15:12 | PROVIDERS: ATTEND Urology | DX: C61 Malignant neoplasm of prostate (principal) | CPT/HCPCS: 84153; G0463 ==

== ENCOUNTER → 2020-06-05 | Outpatient (CLI) | payer MEDICARE, OTHER | LOC: M PLALAB 09:57 | PROVIDERS: ATTEND Urology | DX: C61 Malignant neoplasm of prostate (principal) ==

== ENCOUNTER → 2020-07-26 | Outpatient (CLI) | payer MEDICARE, BC, OTHER ==
[~2020-07-26] MED LIST changes: -AMLO10TA5 PO; +AMLO1TAB25 PO; +ASPI-546 PO; -ASPI1TAB15 PO; +CYAN500T8 PO; +PIOG1TAB37 PO; +TRES100I SC; +VITA50TA43 PO
== END ==
LOC: M PLALAB 09:40
PROVIDERS: ATTEND Urology
DX: C61 Malignant neoplasm of prostate (principal)

== ENCOUNTER → 2020-08-30 | Outpatient (CLI) | payer MEDICARE, BC, OTHER | LOC: M PLALAB 09:18 | PROVIDERS: ATTEND Urology | DX: C61 Malignant neoplasm of prostate (principal) ==

== ENCOUNTER → 2020-09-04 | Outpatient (CLI) | payer MEDICARE, BC, OTHER ==
[2020-09-04 15:08] LABS: PROSTATIC SPECIFIC AG MONITOR 14.9 NG/ML (< 4.00)
[2020-09-06 10:51] LABS: CREATININE FOR GFR 1.29 MG/DL (0.70-1.30); GLOMERULAR FILTRATION RATE 58.6 (>42)
[2020-09-06 11:40] LABS: CALCIUM LEVEL 9.1 MG/DL (8.8-10.2); POTASSIUM SERUM 4.4 MEQ/L (3.5-5.1)
== END ==
LOC: M PLALAB 13:03
PROVIDERS: ATTEND Urology
DX: C61 Malignant neoplasm of prostate (principal)
CPT/HCPCS: 36415; 80048; 84153; 96402; G0463; J9155

== ENCOUNTER → 2020-09-06 | Outpatient (CLI) | payer MEDICARE, BC, OTHER ==
[~2020-09-06] MED LIST changes: +ISOVUE-370 76% 100ML VIAL As Ordered ONE
--- NOTE | 2020-09-11 11:47 | REP ---
CT ABDOMEN AND PELVIS WITH INTRAVENOUS (IV) BUT WITHOUT ORAL CONTRAST HISTORY: Rising prostate-specific antigen (PSA). Posttreatment for malignant neoplasm of the prostate. CT CONTRAST DOSE: 100 mL of intravenous Isovue-370 is administered. COMPARISON: CT study 09/14/2019. 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 The patient gives additional history of prior appendectomy. There is a calcification in the left mid abdomen. These findings are unchanged. The lung bases show pleural parenchymal fibrosis bilaterally in the lower lobes. No pleural effusion. There is mild diffuse fatty infiltration of the liver. No focal liver mass lesion is seen. There is a small accessory splenule. No splenic mass lesion is observed. There is some thickening of the right adrenal gland unchanged from the 09/14/2019 prior study. The left adrenal gland is also thickened inferiorly also stable from the prior study. No abnormality is noted in the pancreas. The gallbladder is contracted. There is some mild left periaortic lymphadenopathy. These are relatively small nodes, but they are clearly increased in size from the 09/14/2019 study and must be considered suspicious. The largest of these is a left periaortic node measuring 13 x 12 x 20 mm. There is a large renal pelvic stone in the left kidney without hydronephrosis. The stone measures 20 mm in diameter. It is unchanged in position and appearance. No hydronephrosis is seen on either side. The left kidney is somewhat atrophic compared to the right. There is a small cyst in the upper pole of the left kidney. Post appendectomy clips are seen in the right lower quadrant. There is left colonic diverticulosis. No inguinal adenopathy is seen. No pelvic side wall adenopathy is observed on either side. Urinary bladder is small and contracted. No abdominal wall defect is seen. Bone window settings show no sclerotic or lytic bony destructive lesion. There are degenerative spondylosis changes in the lumbar spine. IMPRESSION: 1. There is mild left periaortic lymphadenopathy a new finding from 09/14/2019. 2. There is a 2-cm calculus in the left renal pelvis without hydronephrosis. Mild left renal atrophy is seen. 3. Left colonic diverticulosis. 4. Post appendectomy. 5. Mild diffuse fatty infiltration of the liver and stable adrenal hyperplasia unchanged. MTDD
--- NOTE | 2020-09-11 11:48 | REP ---
WHOLE BODY BONE SCAN COMPARISON: 09/14/2019. HISTORY: Prostate cancer, rising prostate-specific antigen. TECHNIQUE: Following the intravenous administration of 21.8 mCi Technetium-99m MDP, the patients whole body is imaged in various projections. FINDINGS: There is no change since the prior exam. There appears to be mild arthritic uptake in the anterior cervical spine, at both shoulders, and both wrists. Photopenic area in the region of the proximal right femur is compatible with a metallic prosthesis. There is no compelling scintigraphic evidence of osseous metastasis. Renal and bladder activity are seen. IMPRESSION: No change since prior study 09/14/2019. No compelling scintigraphic evidence of osseous metastasis. MTDD
== END ==
LOC: M RAD 09:49
PROVIDERS: ATTEND Urology
DX: R97.21 Rising PSA following treatment for malignant neoplasm of prostate (principal)
CPT/HCPCS: 74177; 78306; A9503; Q9967

== ENCOUNTER → 2020-09-09 | Outpatient (CLI) | payer MEDICARE, BC, OTHER ==
[~2020-09-09] MED LIST changes: -ISOVUE-370 76% 100ML VIAL As Ordered ONE
== END ==
LOC: M LABSMTC 09:23
PROVIDERS: ATTEND Anesthesiology
DX: Z01.812 Encounter for preprocedural laboratory examination (principal); Z20.828 Contact with and (suspected) exposure to other viral communicable diseases
CPT/HCPCS: C9803; U0003

== ENCOUNTER 2020-09-14 07:40 | Day surgery (SDC) | payer MEDICARE, BC, OTHER ==
[~2020-09-14] VITALS: Ht 182.9 cm; Wt 129.0 kg
[~2020-09-14 07:40] MED LIST changes: +NS 1,000 ML IV ONE
[2020-09-14] MEDS ORDERED: propofoL 200 MG/20 ML VIAL As Ordered ONE (08:55)
--- NOTE | 2020-09-14 09:03 | ROOR ---
Patient Name: Dhaval Harvey Procedure Date: 09/14/2020 8:27 AM Date of : 1950 Age: 70 Room: [facility] Gender: Male Note Status: Finalized Procedure: Colonoscopy Indications: Rectal bleeding Providers: Christopher Rodarte Jr, MD Referring MD: MERCEDES JOHNSON Requesting Provider: Medicines: Propofol per Anesthesia Complications: No immediate complications. Procedure: Pre-Anesthesia Assessment: - Prior to the procedure, a History and Physical was performed, and patient medications and allergies were reviewed. The patient is competent. The risks and benefits of the procedure and the sedation options and risks were discussed with the patient. All questions were answered and informed consent was obtained. Patient identification and proposed procedure were verified by the physician and the nurse in the pre-procedure area and in the procedure room. Mental Status Examination: alert and oriented. Airway Examination: normal oropharyngeal airway and neck mobility. Respiratory Examination: clear to auscultation. CV Examination: normal. ASA Grade Assessment: II - A patient with mild systemic disease. After reviewing the risks and benefits, the patient was deemed in satisfactory condition to undergo the procedure. The anesthesia plan was to use moderate sedation / analgesia (conscious sedation). Immediately prior to administration of medications, the patient was re-assessed for adequacy to receive sedatives. The heart rate, respiratory rate, oxygen saturations, blood pressure, adequacy of pulmonary ventilation, and response to care were monitored throughout the procedure. The physical status of the patient was re-assessed after the procedure. The Colonoscope was introduced through the anus and advanced to the cecum, identified by appendiceal orifice and ileocecal valve. The colonoscopy was performed without difficulty. The patient tolerated the procedure well. The quality of the bowel preparation was adequate. Findings: Seven polyps were found in the recto-sigmoid colon, sigmoid colon, transverse colon, ascending colon and cecum. The polyps were diminutive in size. These polyps were removed with a hot snare. Resection was complete, but the polyp tissue was only partially retrieved. A medium polyp was found in the sigmoid colon. The polyp was pedunculated. The polyp was removed with a hot snare. Resection was complete, but the polyp tissue was only partially retrieved. Multiple small and large-mouthed diverticula were found in the sigmoid colon. The descending colon, appendiceal orifice and ileocecal valve appeared normal. A diffuse area of severely friable mucosa with contact bleeding was found in the rectum. Impression: - Seven diminutive polyps at the recto-sigmoid colon, in the sigmoid colon, in the transverse colon, in the ascending colon and in the cecum, removed with a hot snare. Complete resection. Partial retrieval. - One medium polyp in the sigmoid colon, removed with a hot snare. Complete resection. Partial retrieval. - Diverticulosis in the sigmoid colon. - The descending colon, appendiceal orifice and ileocecal valve are normal. - Friability with contact bleeding in the rectum. Recommendation: - Discharge patient to home (ambulatory). - Repeat colonoscopy in 3 - 5 years for surveillance. Christopher Rodarte MD Christopher Rodarte Jr, MD 09/14/2020 9:02:34 AM Electronically signed by Christopher Rodarte Jr, MD Number of Addenda: 0 Note Initiated On: 09/14/2020 8:27 AM Estimated Blood Loss: Estimated blood loss: none.
[2020-09-14 09:25] VITALS: BP 106/88
== END 2020-09-14 10:01 | disposition home or self-care (01) ==
LOC: M OPP 07:40
PROVIDERS: ATTEND Surgery
DX: D12.6 Benign neoplasm of colon, unspecified (principal); K57.30 Diverticulosis of large intestine without perforation or abscess without bleeding; K62.5 Hemorrhage of anus and rectum; I10 Essential (primary) hypertension; E11.9 Type 2 diabetes mellitus without complications; Z79.4 Long term (current) use of insulin; Z79.82 Long term (current) use of aspirin; Z79.899 Other long term (current) drug therapy; Z87.891 Personal history of nicotine dependence; Z85.46 Personal history of malignant neoplasm of prostate; Z23 Encounter for immunization; Z91.011 Allergy to milk products

== ENCOUNTER → 2020-10-05 | Outpatient (REF) | payer MEDICARE, OTHER ==
[~2020-10-05] MED LIST changes: -NS 1,000 ML IV ONE
[2020-10-05 11:32] LABS: TESTOSTERONE < 7 NG/DL (241-827)
== END ==
LOC: M PLALAB 08:31
PROVIDERS: ATTEND Urology
DX: C61 Malignant neoplasm of prostate (principal)

== ENCOUNTER → 2020-10-11 | Outpatient (REF) | payer MEDICARE, OTHER | LOC: M LABSMT 12:57 | PROVIDERS: ATTEND Urology | DX: C61 Malignant neoplasm of prostate (principal) ==

== ENCOUNTER → 2020-10-20 | Outpatient (REF) | payer MEDICARE, OTHER ==
[~2020-10-20] MED LIST changes: +ZYTI250T PO
== END ==
LOC: M PLALAB 08:51
PROVIDERS: ATTEND Urology
DX: C61 Malignant neoplasm of prostate (principal)

== ENCOUNTER → 2020-12-11 | Outpatient (CLI) | payer MEDICARE, BC, OTHER ==
[~2020-12-11] MED LIST changes: +CYAN500T14 PO; -CYAN500T8 PO; +PRED5TA PO
[2020-12-11 13:55] LABS: BASO # 0.1 10^3/uL (0.0-0.2); BASO % 0.7 % (0.0-1.0); EOS # 0.3 10^3/uL (0.0-0.5); EOS % 3.6 % (0.0-3.0); HEMATOCRIT 43.6 % (42.0-52.0); HEMOGLOBIN 13.5 g/dl (13.5-17.5); LYMPH # 0.7 10^3/uL (1.5-5.0); LYMPH % 10.2 % (24.0-44.0); MEAN CORPUSCULAR HEMOGLOBIN 29.9 pg (27.0-33.0); MEAN CORPUSCULAR VOLUME 96.7 fl (80.0-96.0); MONO % 13.2 % (0.0-5.0); NEUTROPHILS # 5.2 10^3/uL (1.5-8.5); NEUTROPHILS % 71.7 % (36.0-66.0); PLATELET COUNT, AUTOMATED 193 10^3/uL (150-450); RED BLOOD COUNT 4.51 10^6/uL (4.30-6.10); WHITE BLOOD COUNT 7.3 10^3/uL (4.0-10.0)
[2020-12-11 15:13] LABS: ALBUMIN 3.3 GM/DL (3.2-5.2); BILIRUBIN,TOTAL 0.9 MG/DL (0.2-1.0); CALCIUM LEVEL 8.9 MG/DL (8.8-10.2); CREATININE FOR GFR 1.52 MG/DL (0.70-1.30); GLOMERULAR FILTRATION RATE 48.5 (>42); POTASSIUM SERUM 4.4 MEQ/L (3.5-5.1); TOTAL PROTEIN 6.1 GM/DL (6.4-8.2)
== END ==
LOC: M PLALAB 09:47
PROVIDERS: ATTEND Specialist
DX: C61 Malignant neoplasm of prostate (principal)

== ENCOUNTER → 2021-01-08 | Outpatient (CLI) | payer MEDICARE, BC, OTHER ==
[~2021-01-08] MED LIST changes: +XTAN40CA PO
[2021-01-08 11:42] LABS: BASO % 0.4 % (0.0-1.0); EOS # 0.2 10^3/uL (0.0-0.5); EOS % 2.7 % (0.0-3.0); HEMATOCRIT 42.7 % (42.0-52.0); HEMOGLOBIN 13.3 g/dl (13.5-17.5); LYMPH # 0.7 10^3/uL (1.5-5.0); LYMPH % 9.8 % (24.0-44.0); MEAN CORPUSCULAR HEMOGLOBIN 30.3 pg (27.0-33.0); MEAN CORPUSCULAR HGB CONC 31.1 g/dl (32.0-36.5); MEAN CORPUSCULAR VOLUME 97.3 fl (80.0-96.0); MONO # 0.7 10^3/uL (0.0-0.8); MONO % 10.4 % (0.0-5.0); NEUTROPHILS # 5.3 10^3/uL (1.5-8.5); NEUTROPHILS % 76.1 % (36.0-66.0); PLATELET COUNT, AUTOMATED 208 10^3/uL (150-450); RED BLOOD COUNT 4.39 10^6/uL (4.30-6.10)
[2021-01-08 12:41] LABS: ALBUMIN 3.2 GM/DL (3.2-5.2); BILIRUBIN,TOTAL 0.5 MG/DL (0.2-1.0); CALCIUM LEVEL 8.9 MG/DL (8.8-10.2); CREATININE FOR GFR 1.63 MG/DL (0.70-1.30); GLOMERULAR FILTRATION RATE 44.8 (>42); POTASSIUM SERUM 4.3 MEQ/L (3.5-5.1)
== END ==
LOC: M PLALAB 08:59
PROVIDERS: ATTEND Specialist
DX: C61 Malignant neoplasm of prostate (principal)

== ENCOUNTER → 2021-02-05 | Outpatient (CLI) | payer MEDICARE, BC, OTHER ==
[2021-02-05 14:07] LABS: BASO # 0.1 10^3/uL (0.0-0.2); BASO % 0.8 % (0.0-1.0); EOS # 0.3 10^3/uL (0.0-0.5); EOS % 4.1 % (0.0-3.0); HEMATOCRIT 39.5 % (42.0-52.0); HEMOGLOBIN 12.2 g/dl (13.5-17.5); LYMPH # 0.6 10^3/uL (1.5-5.0); LYMPH % 8.3 % (24.0-44.0); MEAN CORPUSCULAR HEMOGLOBIN 30.4 pg (27.0-33.0); MEAN CORPUSCULAR HGB CONC 30.9 g/dl (32.0-36.5); MEAN CORPUSCULAR VOLUME 98.5 fl (80.0-96.0); MONO # 0.9 10^3/uL (0.0-0.8); MONO % 12.6 % (2.0-8.0); NEUTROPHILS # 5.2 10^3/uL (1.5-8.5); NEUTROPHILS % 73.5 % (36.0-66.0); PLATELET COUNT, AUTOMATED 206 10^3/uL (150-450); RED BLOOD COUNT 4.01 10^6/uL (4.30-6.10); WHITE BLOOD COUNT 7.1 10^3/uL (4.0-10.0)
[2021-02-05 15:04] LABS: BILIRUBIN,TOTAL 0.6 MG/DL (0.2-1.0); CALCIUM LEVEL 9.4 MG/DL (8.8-10.2); CREATININE FOR GFR 1.53 MG/DL (0.70-1.30); GLOMERULAR FILTRATION RATE 48.1 (>42); POTASSIUM SERUM 4.4 MEQ/L (3.5-5.1); PROSTATIC SPECIFIC AG MONITOR 13.6 NG/ML (< 4.00); TOTAL PROTEIN 5.8 GM/DL (6.4-8.2)
== END ==
LOC: M PLALAB 09:55
PROVIDERS: ATTEND Specialist
DX: C61 Malignant neoplasm of prostate (principal)

== ENCOUNTER → 2021-05-08 | Outpatient (CLI) | payer MEDICARE, BC, OTHER ==
[2021-05-08 14:13] LABS: BASO # 0.1 10^3/uL (0.0-0.2); BASO % 0.8 % (0.0-1.0); EOS # 0.5 10^3/uL (0.0-0.5); EOS % 7.1 % (0.0-3.0); HEMATOCRIT 39.8 % (42.0-52.0); HEMOGLOBIN 12.4 g/dl (13.5-17.5); LYMPH # 0.6 10^3/uL (1.5-5.0); MEAN CORPUSCULAR HEMOGLOBIN 29.8 pg (27.0-33.0); MEAN CORPUSCULAR HGB CONC 31.2 g/dl (32.0-36.5); MEAN CORPUSCULAR VOLUME 95.7 fl (80.0-96.0); MONO # 0.8 10^3/uL (0.0-0.8); MONO % 11.3 % (2.0-8.0); NEUTROPHILS # 4.7 10^3/uL (1.5-8.5); NEUTROPHILS % 71.3 % (36.0-66.0); PLATELET COUNT, AUTOMATED 219 10^3/uL (150-450); RED BLOOD COUNT 4.16 10^6/uL (4.30-6.10); WHITE BLOOD COUNT 6.6 10^3/uL (4.0-10.0)
[2021-05-08 14:33] LABS: ALBUMIN 3.2 GM/DL (3.2-5.2); BILIRUBIN,TOTAL 0.5 MG/DL (0.2-1.0); CALCIUM LEVEL 8.9 MG/DL (8.8-10.2); CREATININE FOR GFR 1.46 MG/DL (0.70-1.30); GLOMERULAR FILTRATION RATE 50.7 (>42); POTASSIUM SERUM 4.3 MEQ/L (3.5-5.1); PROSTATIC SPECIFIC AG MONITOR 10.1 NG/ML (< 4.00); TOTAL PROTEIN 6.2 GM/DL (6.4-8.2)
== END ==
LOC: M PLALAB 08:43
PROVIDERS: ATTEND Specialist
DX: C61 Malignant neoplasm of prostate (principal)

== ENCOUNTER → 2021-08-07 | Outpatient (CLI) | payer MEDICARE, BC, OTHER ==
[~2021-08-07] MED LIST changes: +LEVO50TA5
[2021-08-07 10:45] LABS: BASO # 0.1 10^3/uL (0.0-0.2); BASO % 0.7 % (0.0-1.0); EOS # 0.4 10^3/uL (0.0-0.5); EOS % 4.3 % (0.0-3.0); HEMATOCRIT 42.1 % (42.0-52.0); HEMOGLOBIN 13.1 g/dl (13.5-17.5); LYMPH # 0.6 10^3/uL (1.5-5.0); LYMPH % 5.8 % (24.0-44.0); MEAN CORPUSCULAR HEMOGLOBIN 29.2 pg (27.0-33.0); MEAN CORPUSCULAR HGB CONC 31.1 g/dl (32.0-36.5); MEAN CORPUSCULAR VOLUME 93.8 fl (80.0-96.0); MONO # 0.9 10^3/uL (0.0-0.8); MONO % 9.2 % (2.0-8.0); NEUTROPHILS # 7.5 10^3/uL (1.5-8.5); NEUTROPHILS % 79.4 % (36.0-66.0); PLATELET COUNT, AUTOMATED 209 10^3/uL (150-450); RED BLOOD COUNT 4.49 10^6/uL (4.30-6.10); WHITE BLOOD COUNT 9.4 10^3/uL (4.0-10.0)
[2021-08-07 11:16] LABS: ALBUMIN 3.1 GM/DL (3.2-5.2); BILIRUBIN,TOTAL 0.4 MG/DL (0.2-1.0); CALCIUM LEVEL 9.1 MG/DL (8.8-10.2); CREATININE FOR GFR 1.46 MG/DL (0.70-1.30); GLOMERULAR FILTRATION RATE 50.7 (>42); POTASSIUM SERUM 4.8 MEQ/L (3.5-5.1); TOTAL PROTEIN 6.2 GM/DL (6.4-8.2)
[2021-08-13 10:17] LABS: PROSTATIC SPECIFIC AG MONITOR 19.6 NG/ML (< 4.00)
== END ==
LOC: M PLALAB 08:40
PROVIDERS: ATTEND Specialist
DX: C61 Malignant neoplasm of prostate (principal)

== ENCOUNTER → 2021-08-14 | Outpatient (CLI) | payer MEDICARE, BC, OTHER | LOC: M PLALAB 15:42 | PROVIDERS: ATTEND Specialist | DX: C61 Malignant neoplasm of prostate (principal) ==

== ENCOUNTER → 2021-08-17 | Outpatient (CLI) | payer MEDICARE, BC, OTHER ==
[~2021-08-17] MED LIST changes: +ATEN50TA2 PO; +CEPH500C PO; +DEXA4TA PO; +DOXY-350 PO; +ELIQ5TAB4 PO; +FURO40TA2 PO; +GASTROGRAFIN SOLUTION 30ML (Q9963) As Ordered ONE; +ISOVUE-370 76% 100ML VIAL As Ordered ONE; -LEVO50TA5; +LEVO50TA5 PO; +NAPR220C14 PO; +ONDA-84 PO; +PERC5TAB12 PO; +PRED20TA PO; +PROA1AER2 INH; +PROC10TA5 PO; +TRAM50TA2 PO; +VITA500C24 PO
== END ==
LOC: M RAD 15:38
PROVIDERS: ATTEND Specialist
DX: C61 Malignant neoplasm of prostate (principal)
CPT/HCPCS: 71260; 74177; Q9963; Q9967

== ENCOUNTER → 2021-09-11 | Outpatient (CLI) | payer MEDICARE, BC, OTHER ==
[~2021-09-11] MED LIST changes: -ATEN50TA2 PO; -CEPH500C PO; -DEXA4TA PO; -DOXY-350 PO; -ELIQ5TAB4 PO; -FURO40TA2 PO; -GASTROGRAFIN SOLUTION 30ML (Q9963) As Ordered ONE; -ISOVUE-370 76% 100ML VIAL As Ordered ONE; +LEVO50TA5; -LEVO50TA5 PO; -NAPR220C14 PO; -ONDA-84 PO; -PERC5TAB12 PO; -PRED20TA PO; -PROA1AER2 INH; -PROC10TA5 PO; -TRAM50TA2 PO; -VITA500C24 PO
--- NOTE | 2021-09-11 10:22 | RADONC ---
Radiation Oncology Hx/FUP Radiation Oncology Hx/FUP Date of Service: Sep 11, 2021 Pt Identifier Dhaval Harvey is a 71 year old male seen for a followup visit today at the department of radiation oncology for a history of metastatic castrate resistant prostate cancer. He is s/p prostatectomy and salvage RT 66 Gy in 33 fractions from 10/06/19-12/02/19 he had concomitant 6 months of ADT. He subsequently experienced rising PSA and was started on ADT with Dr. Gregorio 10/09/20. He experienced continued PSA rise and was started on abiraterone + prednisone 11/03/20. He progressed and received Xtandi from 01/10/21. PSA has contined to rise. 08/13/21 CT chest showed a sclerotic focus in T2, CT abdomen and pelvis was negative. Bone scan is pending 09/14/21. He is seen today for consideration of SBRT to the T2 focus. Diagnosis/Treatment History Oncologic History As above. Recent data: 08/17/21 CT abdomen pelvis FINDINGS: Exam was submitted emergently for the history of follow-up cancer. Liver: Liver appears normal with no focal abnormality. Gallbladder and bile ducts: Gallbladder is present and shows no evidence of gallstone. Pancreas: Pancreas appears normal. No focal mass or peripancreatic inflammation. Spleen: Spleen appears homogeneous without focal mass. Adrenal glands: Bilateral adrenal gland enlargement is unchanged. Bilateral stable adrenal gland enlargement Kidneys and ureters: Right kidney is unremarkable. Left kidney demonstrates cysts and calculi and left kidney is atrophic. Left renal pelvis calcification is stable. Stomach and bowel: No evidence of small bowel obstruction. No evidence of acute diverticulitis. Appendix: Appendix is not seen. No RLQ inflammation to suggest appendicitis. Intraperitoneal space: No pneumoperitoneum. No convincing evidence of abdominal or pelvic metastatic disease. Vasculature: Atherosclerotic change present in the aorta, without aneurysm. Main portal and splenic veins enhance normally. Lymph nodes: No enlarged lymph nodes. Urinary bladder: Bladder is decompressed and not well evaluated. Reproductive: Apparent prostatectomy change or diminutive prostate. Bones/joints: Right hip arthroplasty changes. Degenerative changes in the lumbar spine. IMPRESSION: No evidence of intra-abdominal or pelvic metastatic disease. Bilateral stable adrenal gland enlargement. Nonobstructive left renal pelvis calcification Colonic diverticulosis 08/17/21 CT chest FINDINGS: Lungs: Pulmonary vascular/interstitial pattern does not suggest active pulmonary edema. No suspicious lung mass or air space process. No central endobronchial lesion. Subpleural scarring posteromedial lower lung anderson. Pleural spaces: No pneumothorax. No pleural effusion. Heart: No overt cardiac enlargement or abnormal volume of pericardial fluid. Mediastinal space: Small hiatal hernia is present. Aorta: No thoracic aortic aneurysm or dissection. Great vessels off aortic arch: Atherosclerotic calcifications in the coronary vessels. Lymph nodes: Small, nonspecific mediastinal nodes are present. Bones/joints: Sclerotic focus within the T2 vertebral body anteriorly measuring 6 mm. Diffuse idiopathic skeletal hyperostosis changes. No other definitive osseous lesion. Soft tissues: Unremarkable. IMPRESSION: 1. Solitary 6 mm sclerotic lesion anterior aspect T2 vertebral body. No other obvious osseous lesion and no evidence of intrathoracic metastatic disease. 2. Nonspecific small mediastinal lymph nodes PSA 08/07/21 19.6 Testosterone 08/14/21 <7 Interval History Dhaval feels well. Here with his Leslee. Has no pain to speak of. Has chronic urinary leakage s/p RALP and RT. He has no problems with bowel movements. Has been tolerating the ADT and Xtandi well. Current Therapy Xtandi + ADT Stage mCRPC stage IVB Social History: 10 pack year former smoker quit 1969 Dinks occasionally Allergies / Meds Allergies: Coded Allergies: milk (Verified Allergy, Intermediate, mucous, 09/08/20) SEASONAL ALLERGIES (Verified Allergy, Unknown, unknown, 09/08/20) Home Meds Active Scripts Enzalutamide (Xtandi) 40 Mg Capsule, 4 CAP PO DAILY for prostate cancer for 30 Days, #120 CAP 6 Refills Prov:EDGAR VEGA MD 08/08/21 Amlodipine Besylate (Amlodipine Besylate) 10 Mg Tab, 10 MG PO QHS, #30 TAB Prov:Shaila Mead MD 08/28/18 Atenolol (Atenolol) 25 Mg Tab, 50 MG PO DAILY, #30 TAB Prov:Shaila Mead MD 08/28/18 Reported Medications Levothyroxine Sodium (LEVOTHYROXINE SODIUM) 50 Mcg Tablet 08/13/21 Cyanocobalamin (Vitamin B-12) (Vitamin B-12) 500 Mcg Tablet, 2000 MCG PO DAILY, TAB 09/08/20 Pyridoxine HCl (Vitamin B6) (Vitamin B-6) 50 Mg Tablet, 200 MG PO DAILY, TAB 09/08/20 Derwent-3 Fatty Acids/Fish Oil (Fish Oil 1,000 mg Capsule) 1 Each Capsule, 1000 MG PO BID, CAP 09/08/20 Pioglitazone HCl (Pioglitazone HCl) 30 Mg Tablet, 30 MG PO DAILY, TAB 09/08/20 Insulin Degludec (Tresiba) 100 Unit/1 Ml Vial, 100 UNIT SC QAM, INJ 09/08/20 Aspirin (Ecotrin) 81 Mg Tablet.dr, 81 MG PO DAILY for pain for 30 Days, #30 TAB 03/25/19 Docusate Sodium (Colace) 100 Mg Capsule, 1 CAP PO BID for 30 Days, #60 CAP 03/25/19 Guaifenesin (Mucinex) 600 Mg Tab.er.12h, 600 MG PO BID 03/19/19 Metformin HCl (Metformin HCl) 500 Mg Tablet, 500 MG PO BID, TAB 03/19/19 Quinapril HCl (Quinapril HCl) 40 Mg Tablet, 40 MG PO QAM, TAB 03/19/19 Quinapril HCl (Quinapril HCl) 20 Mg Tablet, 20 MG PO QPM, TAB 03/19/19 Multivitamins (Thera M Plus Tablet) 1 Tab Tab, 1 TAB PO DAILY, TAB 08/25/18 Quinine Sulfate (Quinine Sulfate) 324 Mg Cap, 324 MG PO DAILY PRN for LEG CRAMPS 08/25/18 Dulaglutide (Trulicity) 1.5 Mg/0.5 Ml Inj, 1.5 MG SQ QWEEK Fridays08/25/18 Atorvastatin Calcium (Atorvastatin Calcium) 20 Mg Tab, 20 MG PO DAILY 08/25/18 Review of Systems Review of Systems Constitutional: Denies: Fatigue, Weight Loss Eyes: Denies: Pain HEENT: Denies: Head Aches Skin: Denies: Rash Pulmonary: Denies: Dyspnea, Cough Cardiovascular: Denies: Chest Pain Gastrointestinal: Denies: Abdominal Pain, Hematochezia Genitourinary: Reports: Frequency, Incontinence; Denies: Dysuria Hematologic: Denies: Bruising, Bleeding Excessively Musculoskeletal: Denies: Neck pain, Back pain, Leg pain Neurological: Denies: Weakness, Numbness Psych: Reports: Mood Normal Physical Examination Vital Signs Wt 321 lbs T 97.2 P 68 RR 20 BP 142/78 O2 93% Pain 0 Fatigue 1 General Exam: Alert, Cooperative, No Acute Distress Eye Exam: PERRLA, EOMI ENT EXAM: Atraumatic Neck Exam: Supple Chest Exam: Clear to auscultation Heart Exam: Rate Normal Abdomen Exam: Soft Extremity Exam: Negative: Edema Skin Exam: Nl turgor and temperature Neuro Exam: Normal Gait, Normal Speech, Cranial Nerves 3-12 NL Psych Exam: Mental status NL Diagnostic and Laboratory Diagnostic Review Radiologic images, relevant labs and pathology reports were personally reviewed and discussed with Mr. Harvey. Assessment and Plan Impression Assessment Mr. Harvey is a 71 year old male with a history of metastatic castrate resistant prostate cancer. He is s/p prostatectomy and salvage RT 66 Gy in 33 fractions from 10/06/19-12/02/19 he had concomitant 6 months of ADT. He subsequently experienced rising PSA and was started on ADT with Dr. Gregorio 10/09/20. He experienced continued PSA rise and was started on abiraterone + prednisone 11/03/20. He progressed and received Xtandi from 01/10/21. PSA has contined to rise. 08/13/21 CT chest showed a sclerotic focus in T2, CT abdomen and pelvis was negative. Bone scan is pending 09/14/21. He is seen today for consideration of SBRT to the T2 focus. He has no pain attributable to bone lesions including in the neck. I discussed that the sclerotic focus in T2 is quite small in proportion to his PSA but may be the only demonstrable lesion. Given he has a pending bone scan on 09/14/21, I will await the results of this study prior to any final recommendations. If the T2 focus is indeed the only metastatic site, and the CT and bone scan are concordant, then I would recommend we proceed with empiric SBRT, 35 Gy in 5 fractions, in the setting of oligometastatic disease. If however there is discordance in the CT and bone scan results, namely bone scan activity out of proportion to the CT results, then I think he would be better served with a change in systemic therapy, possibly to Xofigo, in effort to forestall a switch to cytotoxic drugs, which carry a higher risk of side effects. If the bone scan is entirely negative then I think SBRT to the T2 lesion would still be appropriate in this setting, given minimal toxicity risks. If the PSA response does not manifest post-treatment, then he may be better served by an Axumin PET-CT to localize disease and ascertain whether more local therapy is warranted. He agreed to proceed as such. We discussed the possible side effects of SBRT including fatigue and mild esophagitis. Performance Status ECOG 0 Plan Pending bone scan results, SBRT to the T2 sclerotic focus as discussed above Alternative of Xofigo briefly discussed if there is extensive disease on bone scan Mr. Harvey was encouraged to call with questions or concerns in the interim period. Billing Statement Total time of [35] minutes was spent preparing for the visit [2], obtaining HPI [7], examining the patient [2], reviewing diagnostic tests [5], discussing management options [10], coordinating care [2], and writing this note [7]. SHAGGY MANJARREZ MD Sep 11, 2021 10:22
== END ==
LOC: M ONCR 08:57
PROVIDERS: ATTEND General Practice
DX: C61 Malignant neoplasm of prostate (principal); R97.21 Rising PSA following treatment for malignant neoplasm of prostate; N39.492 Postural (urinary) incontinence; J30.2 Other seasonal allergic rhinitis; Z79.899 Other long term (current) drug therapy; Z91.011 Allergy to milk products; Z92.23 Personal history of estrogen therapy; Z92.3 Personal history of irradiation

== ENCOUNTER → 2021-09-14 | Outpatient (CLI) | payer MEDICARE, BC, OTHER ==
--- NOTE | 2021-09-14 15:23 | REP ---
INDICATION: PROSTATE CA. COMPARISON: 09/06/2020 TECHNIQUE/RADIOTRACER AND DOSE: After the intravenous administration of 22 mCi of technetium 99 M MDP a total body bone scan was obtained. FINDINGS: There is a focus of increased activity seen in the cervical spine at the C7 level. There is a focus of increased activity seen in the right 3rd rib, right 5th rib, right 7th rib, right 8th rib, right 9th rib, and right 10th rib there is increased activity seen at the xiphisternal junction. There is a focus of increased activity seen in the proximal left femur. There is a focus of increased activity seen in the left posterior scapula along the superior spine. There is a focus of increased activity seen in the region of the pedicle of L1 the left and pedicle of L3 on the left. All the aforementioned levels of increased activity represent a change from the prior exam. Degenerative type increased radionuclide accumulation is again seen in the shoulders, knees, and feet. IMPRESSION: New multifocal activity representing a change from the prior exam and consistent with metastatic disease. <Electronically signed by Vidal Hawkins > 09/14/21 [id number]
== END ==
LOC: M RAD 10:04
PROVIDERS: ATTEND Specialist
DX: C61 Malignant neoplasm of prostate (principal)
CPT/HCPCS: 78306; A9503

== ENCOUNTER → 2021-09-20 | Outpatient (CLI) | payer MEDICARE, BC, OTHER ==
--- NOTE | 2021-09-20 15:52 | RADENCPD ---
Date/Time of Encounter Date of Encounter: Sep 20, 2021 Time of Encounter: 15:49 Encounter Dhaval came in today to discuss xofigo as the next line of therapy given that his bone scan confirms multifocal progression in the skeleton. He is a good candidate for this course of 6 cycles consisting of monthly i njections. He has all requisite imaging including recent CT chest abdomen and pelvis which were negative for visceral disease. He has adequate marrow reserve. I will repeat his PSA/testosterone today as well as CBC to serve as baseline. He can continue xtandi until we have a first injection date for him. I anticipate this will be in 2-3 weeks. SHAGGY MANJARREZ MD Sep 20, 2021 15:52
== END ==
LOC: M ONCR 14:29
PROVIDERS: ATTEND General Practice
DX: C61 Malignant neoplasm of prostate (principal); Z92.3 Personal history of irradiation

== ENCOUNTER → 2021-09-21 | Outpatient (CLI) | payer MEDICARE, BC, OTHER ==
[2021-09-21 10:22] LABS: BASO # 0.1 10^3/uL (0.0-0.2); BASO % 0.8 % (0.0-1.0); EOS # 0.4 10^3/uL (0.0-0.5); EOS % 4.3 % (0.0-3.0); HEMATOCRIT 39.7 % (42.0-52.0); HEMOGLOBIN 12.3 g/dl (13.5-17.5); LYMPH # 0.7 10^3/uL (1.5-5.0); LYMPH % 8.4 % (24.0-44.0); MEAN CORPUSCULAR HEMOGLOBIN 28.7 pg (27.0-33.0); MEAN CORPUSCULAR VOLUME 92.5 fl (80.0-96.0); MONO # 0.9 10^3/uL (0.0-0.8); NEUTROPHILS # 6.4 10^3/uL (1.5-8.5); NEUTROPHILS % 74.7 % (36.0-66.0); PLATELET COUNT, AUTOMATED 242 10^3/uL (150-450); RED BLOOD COUNT 4.29 10^6/uL (4.30-6.10); WHITE BLOOD COUNT 8.6 10^3/uL (4.0-10.0)
[2021-09-21 11:02] LABS: FREE T4 1.33 NG/DL (0.76-1.46)
[2021-09-21 11:03] LABS: TESTOSTERONE < 7 NG/DL (241-827)
== END ==
LOC: M PLALAB 08:00
PROVIDERS: ATTEND General Practice
DX: C61 Malignant neoplasm of prostate (principal); Z79.899 Other long term (current) drug therapy

== ENCOUNTER → 2021-10-18 | Outpatient (CLI) | payer MEDICARE, BC, OTHER ==
--- NOTE | 2021-10-18 13:33 | ROOPDOC ---
[facility] Report Of Operation Report of Operation [facility] Radiation Oncology Radioisotope administration report Name: Dhaval Harvey Carson StaceyO.B: 50 Procedure diagnosis: C61.0 Prostate cancer, C79.51 Secondary malignant neoplasm of bone Procedure date/time: 10/18/21 1000 Physician: Shaggy Manjarrez MD Radioisotope: Xofigo ([place] 223) Ordered activity: 217.5 uCi Administered activity: 234.0 uCi Description of procedure: Informed consent for administration of the radioisotope was obtained. A timeout was completed. The patient was scanned with a GM counter and no baseline radioactivity was noted. A 18 Ga peripheral IV was placed in the left AC. The IV was noted to both flush and draw with ease. The dose was administered via IV push over 1 minute. The IV was then flushed with 20 cc of normal saline. The IV was discontinued. The contaminated waste was consolidated and stored to decay for the appropriate length of time. The patient was monitored for 10 minutes. No acute adverse events were noted. The patient was scanned with a GM counter and the dose rate at the umbilicus was noted to be: 1.2 mR/Hr Disposition: The patient tolerated the procedure well He received isotope-specific discharge instructions He will have CBC and CMP drawn in 3 weeks He will follow up in 4 weeks for the next cycle SHAGGY MANJARREZ MD Oct 18, 2021 13:33
== END ==
LOC: M ONCR 09:53
PROVIDERS: ATTEND General Practice
DX: C61 Malignant neoplasm of prostate (principal); C79.51 Secondary malignant neoplasm of bone; Z92.3 Personal history of irradiation

== ENCOUNTER → 2021-11-08 | Outpatient (CLI) | payer MEDICARE, BC, OTHER ==
[2021-11-08 13:34] LABS: BASO % 0.5 % (0.0-1.0); EOS # 0.2 10^3/uL (0.0-0.5); EOS % 3.2 % (0.0-3.0); HEMATOCRIT 39.4 % (42.0-52.0); HEMOGLOBIN 11.9 g/dl (13.5-17.5); LYMPH # 0.5 10^3/uL (1.5-5.0); LYMPH % 8.7 % (24.0-44.0); MEAN CORPUSCULAR HEMOGLOBIN 27.7 pg (27.0-33.0); MEAN CORPUSCULAR HGB CONC 30.2 g/dl (32.0-36.5); MEAN CORPUSCULAR VOLUME 91.8 fl (80.0-96.0); MONO # 0.7 10^3/uL (0.0-0.8); MONO % 11.7 % (2.0-8.0); NEUTROPHILS # 4.6 10^3/uL (1.5-8.5); NEUTROPHILS % 75.7 % (36.0-66.0); PLATELET COUNT, AUTOMATED 212 10^3/uL (150-450); RED BLOOD COUNT 4.29 10^6/uL (4.30-6.10)
[2021-11-08 13:46] LABS: ALBUMIN 2.9 GM/DL (3.2-5.2); ALT/SGPT 20 U/L (12-78); BILIRUBIN,TOTAL 0.4 MG/DL (0.2-1.0); BLOOD UREA NITROGEN 21 MG/DL (7-18); CALCIUM LEVEL 8.9 MG/DL (8.8-10.2); CARBON DIOXIDE LEVEL 30 MEQ/L (21-32); CHLORIDE LEVEL 108 MEQ/L (98-107); CREATININE FOR GFR 1.18 MG/DL (0.70-1.30); GLOMERULAR FILTRATION RATE > 60.0 (>42); GLUCOSE, FASTING 84 MG/DL (70-100); POTASSIUM SERUM 4.5 MEQ/L (3.5-5.1); SODIUM LEVEL 141 MEQ/L (136-145); TOTAL PROTEIN 6.1 GM/DL (6.4-8.2)
== END ==
LOC: M PLALAB 09:36
PROVIDERS: ATTEND General Practice
DX: C61 Malignant neoplasm of prostate (principal); Z79.899 Other long term (current) drug therapy; Z79.82 Long term (current) use of aspirin; Z79.4 Long term (current) use of insulin

== ENCOUNTER → 2021-11-15 | Outpatient (CLI) | payer MEDICARE, BC, OTHER ==
[~2021-11-15] MED LIST changes: +ATEN50TA2 PO; +CEPH500C PO; +DEXA4TA PO; +DOXY-350 PO; +ELIQ5TAB4 PO; +FURO40TA2 PO; -LEVO50TA5; +LEVO50TA5 PO; +NAPR220C14 PO; +ONDA-84 PO; +PERC5TAB12 PO; +PRED20TA PO; +PROA1AER2 INH; +PROC10TA5 PO; +QUIN1TAB3 PO; +TRAM50TA2 PO; +VITA500C24 PO
== END ==
LOC: M ONCR 12:42
PROVIDERS: ATTEND General Practice
DX: C61 Malignant neoplasm of prostate (principal); C79.51 Secondary malignant neoplasm of bone
CPT/HCPCS: 79101; G0463

== ENCOUNTER → 2021-11-26 | Outpatient (CLI) | payer MEDICARE, BC, OTHER ==
[~2021-11-26] MED LIST changes: -QUIN1TAB3 PO
[2021-11-26 10:29] LABS: BASO % 0.6 % (0.0-1.0); EOS # 0.3 10^3/uL (0.0-0.5); EOS % 4.1 % (0.0-3.0); HEMATOCRIT 40.4 % (42.0-52.0); HEMOGLOBIN 12.3 g/dl (13.5-17.5); LYMPH # 0.5 10^3/uL (1.5-5.0); LYMPH % 7.8 % (24.0-44.0); MEAN CORPUSCULAR HEMOGLOBIN 27.4 pg (27.0-33.0); MEAN CORPUSCULAR HGB CONC 30.4 g/dl (32.0-36.5); MONO # 0.8 10^3/uL (0.0-0.8); MONO % 12.3 % (2.0-8.0); NEUTROPHILS # 4.7 10^3/uL (1.5-8.5); NEUTROPHILS % 74.7 % (36.0-66.0); PLATELET COUNT, AUTOMATED 224 10^3/uL (150-450); RED BLOOD COUNT 4.49 10^6/uL (4.30-6.10); WHITE BLOOD COUNT 6.3 10^3/uL (4.0-10.0)
[2021-11-26 11:19] LABS: ALBUMIN 3.3 GM/DL (3.2-5.2); ALT/SGPT 21 U/L (12-78); BILIRUBIN,TOTAL 0.5 MG/DL (0.2-1.0); BLOOD UREA NITROGEN 31 MG/DL (7-18); CARBON DIOXIDE LEVEL 30 MEQ/L (21-32); CHLORIDE LEVEL 105 MEQ/L (98-107); CREATININE FOR GFR 1.23 MG/DL (0.70-1.30); GLOMERULAR FILTRATION RATE > 60.0 (>42); GLUCOSE, FASTING 105 MG/DL (70-100); POTASSIUM SERUM 4.6 MEQ/L (3.5-5.1); SODIUM LEVEL 141 MEQ/L (136-145); TOTAL PROTEIN 6.2 GM/DL (6.4-8.2)
== END ==
LOC: M PLALAB 09:18
PROVIDERS: ATTEND Specialist
DX: C61 Malignant neoplasm of prostate (principal)
CPT/HCPCS: 36415; 80053; 85025; G0103

== ENCOUNTER → 2021-12-07 | Outpatient (CLI) | payer MEDICARE, BC, OTHER ==
[~2021-12-07] MED LIST changes: -ATEN50TA2 PO; -CEPH500C PO; -DEXA4TA PO; -ELIQ5TAB4 PO; -FURO40TA2 PO; -ONDA-84 PO; -PERC5TAB12 PO; -PROC10TA5 PO; -TRAM50TA2 PO; -VITA500C24 PO
[2021-12-07 10:12] LABS: BASO # 0.1 10^3/uL (0.0-0.2); BASO % 0.6 % (0.0-1.0); EOS # 0.2 10^3/uL (0.0-0.5); EOS % 2.6 % (0.0-3.0); HEMATOCRIT 40.4 % (42.0-52.0); HEMOGLOBIN 12.7 g/dl (13.5-17.5); LYMPH # 0.5 10^3/uL (1.5-5.0); LYMPH % 6.1 % (24.0-44.0); MEAN CORPUSCULAR HEMOGLOBIN 27.7 pg (27.0-33.0); MEAN CORPUSCULAR HGB CONC 31.4 g/dl (32.0-36.5); MEAN CORPUSCULAR VOLUME 88.2 fl (80.0-96.0); MONO % 12.2 % (2.0-8.0); NEUTROPHILS # 6.5 10^3/uL (1.5-8.5); NEUTROPHILS % 78.1 % (36.0-66.0); PLATELET COUNT, AUTOMATED 203 10^3/uL (150-450); RED BLOOD COUNT 4.58 10^6/uL (4.30-6.10); WHITE BLOOD COUNT 8.4 10^3/uL (4.0-10.0)
[2021-12-07 10:36] LABS: CALCIUM LEVEL 8.9 MG/DL (8.8-10.2); CREATININE FOR GFR 1.53 MG/DL (0.70-1.30); POTASSIUM SERUM 4.6 MEQ/L (3.5-5.1)
[2021-12-07 10:37] LABS: ALBUMIN 3.3 GM/DL (3.2-5.2); BILIRUBIN,TOTAL 0.4 MG/DL (0.2-1.0); TOTAL PROTEIN 6.3 GM/DL (6.4-8.2)
== END ==
LOC: M PLALAB 08:14
PROVIDERS: ATTEND General Practice
DX: C61 Malignant neoplasm of prostate (principal)

== ENCOUNTER → 2022-01-09 | Outpatient (CLI) | payer MEDICARE, BC, OTHER ==
[~2022-01-09] MED LIST changes: +ATEN50TA2 PO; +CEPHALEXIN 500 MG CAP PO ONE; +DEXA4TA PO; +ELIQ5TAB4 PO; +FURO40TA2 PO; +LIDOCAINE 1% MDV 20ML VIAL As Ordered ONE; +MIDAZOLAM INJ 2MG/2ML VIAL (J2250 PER 1MG) As Ordered ONE; +NS 1,000 ML IV SCH; +ONDA-84 PO; +PERC5TAB12 PO; +PROC10TA5 PO; +TRAM50TA2 PO; +VITA500C24 PO; +ceFAZolin 2 GM/D5W 50 ML IV BAG (J0690 PER 500MG) As Ordered ONE; +ceFAZolin SOD 2 GM in IV 1 EA IV ONE; +diphenhydrAMINE 50MG/ML VIAL (J1200) As Ordered ONE; +fentaNYL 100 MCG/2 ML INJECTION As Ordered ONE
[2022-01-09 15:45] VITALS: BP 143/65
== END ==
LOC: M IRPRO 11:45
PROVIDERS: ATTEND Radiology Diagnostic Radiology
DX: C61 Malignant neoplasm of prostate (principal); J30.2 Other seasonal allergic rhinitis; Z79.4 Long term (current) use of insulin; Z79.84 Long term (current) use of oral hypoglycemic drugs; Z79.899 Other long term (current) drug therapy; Z91.011 Allergy to milk products
CPT/HCPCS: 36561; 99152; 99153; C1769; C1788; C1894; J0690; J1642; J1644; J2250; J3010

== ENCOUNTER → 2022-01-11 | Outpatient (CLI) | payer MEDICARE, BC, OTHER ==
[~2022-01-11] MED LIST changes: -CEPHALEXIN 500 MG CAP PO ONE; -LIDOCAINE 1% MDV 20ML VIAL As Ordered ONE; -MIDAZOLAM INJ 2MG/2ML VIAL (J2250 PER 1MG) As Ordered ONE; -NS 1,000 ML IV SCH; -ceFAZolin 2 GM/D5W 50 ML IV BAG (J0690 PER 500MG) As Ordered ONE; -ceFAZolin SOD 2 GM in IV 1 EA IV ONE; -diphenhydrAMINE 50MG/ML VIAL (J1200) As Ordered ONE; -fentaNYL 100 MCG/2 ML INJECTION As Ordered ONE
[2022-01-11 13:18] LABS: BASO % 0.5 % (0.0-1.0); EOS # 0.2 10^3/uL (0.0-0.5); HEMATOCRIT 40.2 % (42.0-52.0); HEMOGLOBIN 12.2 g/dl (13.5-17.5); LYMPH # 0.5 10^3/uL (1.5-5.0); LYMPH % 5.9 % (24.0-44.0); MEAN CORPUSCULAR HEMOGLOBIN 26.9 pg (27.0-33.0); MEAN CORPUSCULAR HGB CONC 30.3 g/dl (32.0-36.5); MEAN CORPUSCULAR VOLUME 88.7 fl (80.0-96.0); MONO # 0.9 10^3/uL (0.0-0.8); MONO % 10.3 % (2.0-8.0); NEUTROPHILS # 6.7 10^3/uL (1.5-8.5); PLATELET COUNT, AUTOMATED 261 10^3/uL (150-450); RED BLOOD COUNT 4.53 10^6/uL (4.30-6.10); WHITE BLOOD COUNT 8.3 10^3/uL (4.0-10.0)
[2022-01-11 14:05] LABS: ALBUMIN 2.8 GM/DL (3.2-5.2); ALT/SGPT 23 U/L (12-78); BILIRUBIN,TOTAL 0.3 MG/DL (0.2-1.0); BLOOD UREA NITROGEN 22 MG/DL (7-18); CALCIUM LEVEL 9.1 MG/DL (8.8-10.2); CARBON DIOXIDE LEVEL 31 MEQ/L (21-32); CHLORIDE LEVEL 105 MEQ/L (98-107); CREATININE FOR GFR 1.26 MG/DL (0.70-1.30); GLOMERULAR FILTRATION RATE > 60.0 (>42); GLUCOSE, FASTING 147 MG/DL (70-100); POTASSIUM SERUM 4.3 MEQ/L (3.5-5.1); SODIUM LEVEL 144 MEQ/L (136-145); TOTAL PROTEIN 6.2 GM/DL (6.4-8.2)
== END ==
LOC: M PLALAB 10:51
PROVIDERS: ATTEND Specialist
DX: C61 Malignant neoplasm of prostate (principal)
CPT/HCPCS: 36415; 80053; 85025; G0103

== ENCOUNTER → 2022-01-29 | Outpatient (CLI) | payer MEDICARE, BC, OTHER ==
[~2022-01-29] MED LIST changes: +CEPH500C PO
== END ==
LOC: M ONCR 11:10
PROVIDERS: ATTEND General Practice
DX: C61 Malignant neoplasm of prostate (principal); C79.51 Secondary malignant neoplasm of bone; I26.99 Other pulmonary embolism without acute cor pulmonale; R97.21 Rising PSA following treatment for malignant neoplasm of prostate; Z79.899 Other long term (current) drug therapy; Z87.891 Personal history of nicotine dependence; Z91.011 Allergy to milk products; Z92.3 Personal history of irradiation

== ENCOUNTER → 2022-01-29 | Outpatient (POV) | payer MEDICARE, BC, OTHER ==
[~2022-01-29] VITALS: Ht 185.4 cm; Wt 137.3 kg
[2022-01-29 13:30] VITALS: BP 142/78
== END ==
LOC: M IRPOV 13:16
PROVIDERS: ATTEND Radiology Diagnostic Radiology
DX: Z45.2 Encounter for adjustment and management of vascular access device (principal)

== ENCOUNTER → 2022-05-31 | Outpatient (CLI) | payer MEDICARE, BC, OTHER ==
[~2022-05-31] MED LIST changes: +HYDR-4467 PO; +LEVOTAB10 PO; +QUIN1TAB3 PO
== END ==
LOC: M ONCR 11:03
PROVIDERS: ATTEND General Practice
DX: C79.51 Secondary malignant neoplasm of bone (principal); C78.00 Secondary malignant neoplasm of unspecified lung; C77.1 Secondary and unspecified malignant neoplasm of intrathoracic lymph nodes; C61 Malignant neoplasm of prostate; E24.2 Drug-induced Cushing's syndrome; G72.0 Drug-induced myopathy; T38.0X5A Adverse effect of glucocorticoids and synthetic analogues, initial encounter; R53.83 Other fatigue; R60.9 Edema, unspecified; R63.5 Abnormal weight gain; R97.21 Rising PSA following treatment for malignant neoplasm of prostate; Z79.01 Long term (current) use of anticoagulants; Z79.51 Long term (current) use of inhaled steroids; Z79.52 Long term (current) use of systemic steroids; Z79.811 Long term (current) use of aromatase inhibitors; Z79.891 Long term (current) use of opiate analgesic; Z87.891 Personal history of nicotine dependence; Z90.79 Acquired absence of other genital organ(s); Z91.011 Allergy to milk products; Z92.29 Personal history of other drug therapy; Z92.21 Personal history of antineoplastic chemotherapy; Z92.3 Personal history of irradiation

== ENCOUNTER → 2022-06-10 | Outpatient (CLI) | payer MEDICARE, BC, OTHER ==
[~2022-06-10] MED LIST changes: +CORT5TAB2 PO; +ELIQ5TAB PO; +KP F1200 PO; +PROAAER10 INH; +SPIR-10 PO; +oxygen
[2022-06-10 19:54] LABS: BASO # 0.1 10^3/uL (0.0-0.2); BASO % 0.5 % (0.0-1.0); EOS # 0.4 10^3/uL (0.0-0.5); EOS % 3.8 % (0.0-3.0); HEMATOCRIT 33.6 % (42.0-52.0); LYMPH # 0.6 10^3/uL (1.5-5.0); LYMPH % 6.2 % (24.0-44.0); MEAN CORPUSCULAR HEMOGLOBIN 30.5 pg (27.0-33.0); MEAN CORPUSCULAR HGB CONC 29.8 g/dl (32.0-36.5); MEAN CORPUSCULAR VOLUME 102.4 fl (80.0-96.0); MONO % 10.8 % (2.0-8.0); NEUTROPHILS # 7.1 10^3/uL (1.5-8.5); NEUTROPHILS % 78.3 % (36.0-66.0); PLATELET COUNT, AUTOMATED 265 10^3/uL (150-450); RED BLOOD COUNT 3.28 10^6/uL (4.30-6.10); WHITE BLOOD COUNT 9.1 10^3/uL (4.0-10.0)
== END ==
LOC: M WUC 15:37
PROVIDERS: ATTEND Physician Assistant
DX: R91.8 Other nonspecific abnormal finding of lung field (principal); I51.7 Cardiomegaly; R06.02 Shortness of breath; R60.0 Localized edema

== ENCOUNTER 2022-06-11 12:16 | Inpatient (IN) | payer MEDICARE, BC, OTHER ==
[~2022-06-11] VITALS: Ht 185.4 cm; Wt 145.2 kg
[~2022-06-11 12:16] MED LIST changes: -CORT5TAB2 PO; -ELIQ5TAB PO; -KP F1200 PO; -PROAAER10 INH; -SPIR-10 PO; -oxygen
[2022-06-11] MEDS ORDERED: QUIN20TA48 PO (13:11)
[2022-06-11] MEDS ORDERED: ATOR1TAB21 PO (13:11)
[2022-06-11] MEDS ORDERED: KP F1200 PO (13:11)
[2022-06-11] MEDS ORDERED: TRES100I SC (13:11)
[2022-06-11] MEDS ORDERED: oxygen (13:11)
[2022-06-11] MEDS ORDERED: SPIR-10 PO (13:13)
[2022-06-11 13:52] LABS: BASO # 0.1 10^3/uL (0.0-0.2); BASO % 0.6 % (0.0-1.0); EOS # 0.3 10^3/uL (0.0-0.5); EOS % 3.4 % (0.0-3.0); HEMOGLOBIN 9.7 g/dl (13.5-17.5); LYMPH # 0.5 10^3/uL (1.5-5.0); LYMPH % 5.7 % (24.0-44.0); MEAN CORPUSCULAR HEMOGLOBIN 31.6 pg (27.0-33.0); MEAN CORPUSCULAR HGB CONC 31.3 g/dl (32.0-36.5); MONO % 10.7 % (2.0-8.0); NEUTROPHILS # 7.2 10^3/uL (1.5-8.5); NEUTROPHILS % 79.2 % (36.0-66.0); PLATELET COUNT, AUTOMATED 224 10^3/uL (150-450); RED BLOOD COUNT 3.07 10^6/uL (4.30-6.10); WHITE BLOOD COUNT 9.1 10^3/uL (4.0-10.0)
[2022-06-11 14:14] LABS: INR 1.26; PROTHROMBIN TIME 16.2 SECONDS (12.7-14.5)
[2022-06-11 14:15] LABS: PARTIAL THROMBOPLASTIN TIME 40.1 SECONDS (25.9-37.0)
[2022-06-11 14:22] LABS: CK-MB VALUE MASS 1.8 NG/ML (<3.6); MB/CK RELATIVE INDEX 1.4 (< OR =4)
[2022-06-11] MEDS ORDERED: ALBUTEROL 90 MCG/ACT 8GM HFA INHALER INH ONE (14:25)
[2022-06-11 14:29] LABS: ALBUMIN 2.5 GM/DL (3.2-5.2); ALT/SGPT 20 U/L (12-78); BILIRUBIN,DIRECT 0.1 MG/DL (0.0-0.2); BILIRUBIN,TOTAL 0.4 MG/DL (0.2-1.0); BLOOD UREA NITROGEN 16 MG/DL (7-18); CALCIUM LEVEL 8.2 MG/DL (8.8-10.2); CARBON DIOXIDE LEVEL 30 MEQ/L (21-32); CHLORIDE LEVEL 106 MEQ/L (98-107); CREATININE FOR GFR 1.08 MG/DL (0.70-1.30); GLOMERULAR FILTRATION RATE > 60.0 (>42); GLUCOSE, FASTING 114 MG/DL (70-100); NT-PRO BNP 887 PG/ML (<125); POTASSIUM SERUM 4.3 MEQ/L (3.5-5.1); SODIUM LEVEL 140 MEQ/L (136-145)
[2022-06-11] MEDS ORDERED: ISOVUE-370 76% 100ML VIAL As Ordered ONE (14:43)
[2022-06-11 16:03] LABS: CK-MB VALUE MASS 1.5 NG/ML (<3.6); MB/CK RELATIVE INDEX 1.15 (< OR =4)
[2022-06-11] MEDS ORDERED: MOM 30ML SUSPENSION UDC PO PRN (17:15)
[2022-06-11 17:16] LABS: CK-MB VALUE MASS 1.9 NG/ML (<3.6); MB/CK RELATIVE INDEX 1.47 (< OR =4)
[2022-06-11] MEDS ORDERED: CORT5TAB2 PO (17:44)
[2022-06-11] MEDS ORDERED: PROAAER10 INH (17:44)
[2022-06-11] MEDS ORDERED: FURO40TA2 PO (17:44)
[2022-06-11] MEDS ORDERED: ELIQ5TAB PO (17:44)
[2022-06-11] MEDS ORDERED: LEVOTAB10 PO (17:44)
[2022-06-11] MEDS ORDERED: HOME MED LIST COMPLETE! XX SCH (17:50)
[2022-06-11] MEDS ORDERED: DEXTROSE 50% 50 ML SYRINGE IV PRN (18:55)
[2022-06-11] MEDS ORDERED: GLUCAGON INJ 1MG VIAL SC PRN (18:55)
[2022-06-11] MEDS ORDERED: GLUCOSE 4GM CHEW TABLET PO PRN (18:55)
[2022-06-11] MEDS: INSULIN LISPRO (NovoLOG) PER UNIT SC SCH (21:00)
[2022-06-11 21:32] VITALS: BP 154/78
[2022-06-11] MEDS: APIXABAN 5 MG TAB (ELIQUIS) PO SCH (21:49)
[2022-06-11] MEDS: ATORVASTATIN 20 MG TAB PO SCH (21:49)
[2022-06-11] MEDS: guaiFENesin ER 600 MG TAB PO SCH (21:49)
[2022-06-11] MEDS: DOCUSATE SODIUM 100MG CAPSULE PO SCH (21:49)
[2022-06-11] MEDS: FUROSEMIDE 40MG/4ML VIAL (J1940) IV SCH (21:49)
[2022-06-12] VITALS (7 sets, daily range): BP systolic 116–150; BP diastolic 56–85; O2SAT 98
[2022-06-12] MEDS: FUROSEMIDE 40MG/4ML VIAL (J1940) IV SCH ×4 (02:24→20:43)
[2022-06-12] MEDS: LEVOTHYROXINE 50MCG TABLET (0.05MG) PO SCH (05:02)
[2022-06-12 05:17] LABS: BASO % 0.5 % (0.0-1.0); EOS # 0.2 10^3/uL (0.0-0.5); EOS % 3.2 % (0.0-3.0); HEMATOCRIT 29.7 % (42.0-52.0); HEMOGLOBIN 9.2 g/dl (13.5-17.5); LYMPH # 0.4 10^3/uL (1.5-5.0); LYMPH % 5.9 % (24.0-44.0); MEAN CORPUSCULAR HEMOGLOBIN 30.7 pg (27.0-33.0); MONO # 0.9 10^3/uL (0.0-0.8); MONO % 12.3 % (2.0-8.0); NEUTROPHILS # 5.8 10^3/uL (1.5-8.5); NEUTROPHILS % 77.7 % (36.0-66.0); PLATELET COUNT, AUTOMATED 195 10^3/uL (150-450); WHITE BLOOD COUNT 7.5 10^3/uL (4.0-10.0)
[2022-06-12 05:45] LABS: BLOOD UREA NITROGEN 16 MG/DL (7-18); CALCIUM LEVEL 8.1 MG/DL (8.8-10.2); CARBON DIOXIDE LEVEL 31 MEQ/L (21-32); CHLORIDE LEVEL 106 MEQ/L (98-107); CREATININE FOR GFR 1.04 MG/DL (0.70-1.30); GLOMERULAR FILTRATION RATE > 60.0 (>42); GLUCOSE, FASTING 129 MG/DL (70-100); POTASSIUM SERUM 3.8 MEQ/L (3.5-5.1); SODIUM LEVEL 141 MEQ/L (136-145)
[2022-06-12] MEDS: INSULIN LISPRO (NovoLOG) PER UNIT SC SCH ×4 (07:30→20:44)
[2022-06-12] MEDS: CYANOCOBALAMIN 500 MCG TAB PO SCH (08:23)
[2022-06-12] MEDS: POTASSIUM CHLORIDE 10MEQ SR TABLET PO SCH ×2 (08:24→20:43)
[2022-06-12] MEDS: MULTIVITAMINS/MINERALS THERAP 1 TAB PO SCH (08:24)
[2022-06-12] MEDS: APIXABAN 5 MG TAB (ELIQUIS) PO SCH ×2 (08:24→20:43)
[2022-06-12] MEDS: DOCUSATE SODIUM 100MG CAPSULE PO SCH ×2 (08:24→20:43)
[2022-06-12] MEDS: PYRIDOXINE 50 MG TAB PO SCH (08:24)
[2022-06-12] MEDS: SPIRONOLACTONE 25 MG TAB PO SCH ×2 (08:24→16:16)
[2022-06-12] MEDS: LEVEMIR (INSULIN DETEMIR) 1 UNITS/0.01ML SC SCH (08:25)
[2022-06-12] MEDS: guaiFENesin ER 600 MG TAB PO SCH ×2 (08:25→20:43)
[2022-06-12] MEDS ORDERED: SPIRONOLACTONE 25 MG TAB PO SCH (09:00)
[2022-06-12] MEDS: ALBUTEROL 90 MCG/ACT 8GM HFA INHALER INH PRN (16:56)
[2022-06-12] MEDS: ATORVASTATIN 20 MG TAB PO SCH (20:43)
[2022-06-12] MEDS: SENNA 8.6 MG TAB (SENOKOT) PO SCH (20:43)
[2022-06-13] VITALS: BP 133/70
[2022-06-13] MEDS: FUROSEMIDE 40MG/4ML VIAL (J1940) IV SCH ×4 (02:29→20:38)
[2022-06-13 04:00] VITALS: BP 128/70
[2022-06-13 05:27] LABS: BASO % 0.5 % (0.0-1.0); EOS # 0.3 10^3/uL (0.0-0.5); EOS % 3.9 % (0.0-3.0); HEMATOCRIT 29.5 % (42.0-52.0); HEMOGLOBIN 9.3 g/dl (13.5-17.5); LYMPH # 0.5 10^3/uL (1.5-5.0); LYMPH % 6.6 % (24.0-44.0); MEAN CORPUSCULAR HEMOGLOBIN 30.8 pg (27.0-33.0); MEAN CORPUSCULAR HGB CONC 31.5 g/dl (32.0-36.5); MEAN CORPUSCULAR VOLUME 97.7 fl (80.0-96.0); NEUTROPHILS # 6.3 10^3/uL (1.5-8.5); NEUTROPHILS % 76.5 % (36.0-66.0); PLATELET COUNT, AUTOMATED 217 10^3/uL (150-450); RED BLOOD COUNT 3.02 10^6/uL (4.30-6.10); WHITE BLOOD COUNT 8.2 10^3/uL (4.0-10.0)
[2022-06-13] MEDS: LEVOTHYROXINE 50MCG TABLET (0.05MG) PO SCH (05:48)
[2022-06-13 05:55] LABS: BLOOD UREA NITROGEN 17 MG/DL (7-18); CALCIUM LEVEL 8.4 MG/DL (8.8-10.2); CARBON DIOXIDE LEVEL 32 MEQ/L (21-32); CHLORIDE LEVEL 106 MEQ/L (98-107); CREATININE FOR GFR 1.03 MG/DL (0.70-1.30); GLOMERULAR FILTRATION RATE > 60.0 (>42); GLUCOSE, FASTING 108 MG/DL (70-100); POTASSIUM SERUM 3.5 MEQ/L (3.5-5.1); SODIUM LEVEL 144 MEQ/L (136-145)
[2022-06-13 08:00] VITALS: BP 132/59
[2022-06-13] MEDS: SPIRONOLACTONE 25 MG TAB PO SCH ×2 (09:01→17:50)
[2022-06-13] MEDS: POTASSIUM CHLORIDE 10MEQ SR TABLET PO SCH (09:01)
[2022-06-13] MEDS: PYRIDOXINE 50 MG TAB PO SCH (09:01)
[2022-06-13] MEDS: MULTIVITAMINS/MINERALS THERAP 1 TAB PO SCH (09:01)
[2022-06-13] MEDS: CYANOCOBALAMIN 500 MCG TAB PO SCH (09:01)
[2022-06-13] MEDS: APIXABAN 5 MG TAB (ELIQUIS) PO SCH ×2 (09:01→20:34)
[2022-06-13] MEDS: guaiFENesin ER 600 MG TAB PO SCH ×2 (09:01→20:33)
[2022-06-13] MEDS: DOCUSATE SODIUM 100MG CAPSULE PO SCH ×2 (09:01→20:33)
[2022-06-13] MEDS: LEVEMIR (INSULIN DETEMIR) 1 UNITS/0.01ML SC SCH (09:02)
[2022-06-13] MEDS: INSULIN LISPRO (NovoLOG) PER UNIT SC SCH ×4 (09:02→20:53)
[2022-06-13 14:05] VITALS: BP_SYST 122; BP_SYST 138; BP_DIAS 73; BP_DIAS 87
[2022-06-13] MEDS: ALBUTEROL 90 MCG/ACT 8GM HFA INHALER INH PRN (17:54)
[2022-06-13 20:25] VITALS: BP 125/64
[2022-06-13] MEDS: SENNA 8.6 MG TAB (SENOKOT) PO SCH (20:34)
[2022-06-13] MEDS: ATORVASTATIN 20 MG TAB PO SCH (20:34)
[2022-06-13] MEDS ORDERED: POTASSIUM CHLORIDE 10MEQ SR TABLET PO SCH (21:00)
[2022-06-14] VITALS (10 sets, daily range): BP systolic 130–154; BP diastolic 63–76; O2SAT 91–98
[2022-06-14] MEDS: FUROSEMIDE 40MG/4ML VIAL (J1940) IV SCH ×4 (02:20→20:18)
[2022-06-14] MEDS: SODIUM CHLORIDE 0.9% INJ 10 ML SYR IV PRN ×2 (02:20→15:24)
[2022-06-14 04:27] LABS: BASO % 0.5 % (0.0-1.0); EOS # 0.4 10^3/uL (0.0-0.5); EOS % 4.3 % (0.0-3.0); HEMOGLOBIN 9.3 g/dl (13.5-17.5); LYMPH # 0.7 10^3/uL (1.5-5.0); LYMPH % 8.9 % (24.0-44.0); MEAN CORPUSCULAR HEMOGLOBIN 30.4 pg (27.0-33.0); MONO # 1.1 10^3/uL (0.0-0.8); MONO % 13.9 % (2.0-8.0); NEUTROPHILS # 5.8 10^3/uL (1.5-8.5); NEUTROPHILS % 71.9 % (36.0-66.0); PLATELET COUNT, AUTOMATED 228 10^3/uL (150-450); RED BLOOD COUNT 3.06 10^6/uL (4.30-6.10); WHITE BLOOD COUNT 8.1 10^3/uL (4.0-10.0)
[2022-06-14 04:46] LABS: BLOOD UREA NITROGEN 17 MG/DL (7-18); CALCIUM LEVEL 8.3 MG/DL (8.8-10.2); CARBON DIOXIDE LEVEL 31 MEQ/L (21-32); CHLORIDE LEVEL 108 MEQ/L (98-107); CREATININE FOR GFR 1.19 MG/DL (0.70-1.30); GLOMERULAR FILTRATION RATE > 60.0 (>42); GLUCOSE, FASTING 127 MG/DL (70-100); SODIUM LEVEL 146 MEQ/L (136-145)
[2022-06-14] MEDS: LEVOTHYROXINE 50MCG TABLET (0.05MG) PO SCH (05:34)
[2022-06-14] MEDS: LEVEMIR (INSULIN DETEMIR) 1 UNITS/0.01ML SC SCH (08:37)
[2022-06-14] MEDS: INSULIN LISPRO (NovoLOG) PER UNIT SC SCH ×4 (08:37→20:02)
[2022-06-14] MEDS: SPIRONOLACTONE 25 MG TAB PO SCH ×2 (08:38→17:34)
[2022-06-14] MEDS: DOCUSATE SODIUM 100MG CAPSULE PO SCH ×2 (08:38→20:18)
[2022-06-14] MEDS: CYANOCOBALAMIN 500 MCG TAB PO SCH (08:39)
[2022-06-14] MEDS: APIXABAN 5 MG TAB (ELIQUIS) PO SCH ×2 (08:39→20:18)
[2022-06-14] MEDS: PYRIDOXINE 50 MG TAB PO SCH (08:39)
[2022-06-14] MEDS: POTASSIUM CHLORIDE 10MEQ SR TABLET PO SCH ×2 (08:39→20:18)
[2022-06-14] MEDS: guaiFENesin ER 600 MG TAB PO SCH ×2 (08:39→20:18)
[2022-06-14] MEDS: MULTIVITAMINS/MINERALS THERAP 1 TAB PO SCH (08:39)
[2022-06-14] MEDS: ALBUTEROL 90 MCG/ACT 8GM HFA INHALER INH PRN ×2 (08:45→20:04)
[2022-06-14] MEDS: SODIUM CHLORIDE 0.9% INJ 10 ML SYR IV SCH (10:09)
[2022-06-14] MEDS: ATORVASTATIN 20 MG TAB PO SCH (20:18)
[2022-06-14] MEDS: SENNA 8.6 MG TAB (SENOKOT) PO SCH (20:19)
[2022-06-14] MEDS ORDERED: atenoloL 50 MG TAB PO SCH (20:45)
[2022-06-14 21:28] LABS: CALCIUM LEVEL 8.6 MG/DL (8.8-10.2); CREATININE FOR GFR 1.44 MG/DL (0.70-1.30); GLOMERULAR FILTRATION RATE 51.3 (>42); POTASSIUM SERUM 3.8 MEQ/L (3.5-5.1)
[2022-06-15] VITALS (8 sets, daily range): BP systolic 98–145; BP diastolic 50–72; O2SAT 94–95
[2022-06-15] MEDS: FUROSEMIDE 40MG/4ML VIAL (J1940) IV SCH ×2 (02:00→09:46)
[2022-06-15] MEDS: LEVOTHYROXINE 50MCG TABLET (0.05MG) PO SCH (05:43)
[2022-06-15 07:58] LABS: BASO % 0.6 % (0.0-1.0); EOS # 0.3 10^3/uL (0.0-0.5); EOS % 4.3 % (0.0-3.0); HEMOGLOBIN 9.3 g/dl (13.5-17.5); LYMPH # 0.5 10^3/uL (1.5-5.0); LYMPH % 6.8 % (24.0-44.0); MEAN CORPUSCULAR HEMOGLOBIN 30.4 pg (27.0-33.0); MONO # 0.9 10^3/uL (0.0-0.8); MONO % 13.1 % (2.0-8.0); NEUTROPHILS # 5.1 10^3/uL (1.5-8.5); NEUTROPHILS % 74.8 % (36.0-66.0); PLATELET COUNT, AUTOMATED 220 10^3/uL (150-450); RED BLOOD COUNT 3.06 10^6/uL (4.30-6.10); WHITE BLOOD COUNT 6.8 10^3/uL (4.0-10.0)
[2022-06-15 08:20] LABS: BLOOD UREA NITROGEN 19 MG/DL (7-18); CALCIUM LEVEL 8.3 MG/DL (8.8-10.2); CARBON DIOXIDE LEVEL 29 MEQ/L (21-32); CHLORIDE LEVEL 110 MEQ/L (98-107); CREATININE FOR GFR 1.11 MG/DL (0.70-1.30); GLOMERULAR FILTRATION RATE > 60.0 (>42); GLUCOSE, FASTING 133 MG/DL (70-100); POTASSIUM SERUM 3.7 MEQ/L (3.5-5.1); SODIUM LEVEL 146 MEQ/L (136-145)
[2022-06-15] MEDS: LEVEMIR (INSULIN DETEMIR) 1 UNITS/0.01ML SC SCH (09:42)
[2022-06-15] MEDS: INSULIN LISPRO (NovoLOG) PER UNIT SC SCH ×4 (09:43→20:22)
[2022-06-15] MEDS: guaiFENesin ER 600 MG TAB PO SCH ×2 (09:43→20:17)
[2022-06-15] MEDS: POTASSIUM CHLORIDE 10MEQ SR TABLET PO SCH ×2 (09:44→20:16)
[2022-06-15] MEDS: CYANOCOBALAMIN 500 MCG TAB PO SCH (09:44)
[2022-06-15] MEDS: MULTIVITAMINS/MINERALS THERAP 1 TAB PO SCH (09:44)
[2022-06-15] MEDS: APIXABAN 5 MG TAB (ELIQUIS) PO SCH ×2 (09:44→20:17)
[2022-06-15] MEDS: SPIRONOLACTONE 25 MG TAB PO SCH ×2 (09:44→17:59)
[2022-06-15] MEDS: PYRIDOXINE 50 MG TAB PO SCH (09:44)
[2022-06-15] MEDS: DOCUSATE SODIUM 100MG CAPSULE PO SCH ×2 (09:44→20:16)
[2022-06-15] MEDS: SODIUM CHLORIDE 0.9% INJ 10 ML SYR IV SCH (09:47)
[2022-06-15] MEDS: TORSEMIDE 20 MG TAB PO SCH (18:00)
[2022-06-15] MEDS: ATORVASTATIN 20 MG TAB PO SCH (20:16)
[2022-06-15] MEDS: SENNA 8.6 MG TAB (SENOKOT) PO SCH (20:17)
[2022-06-15] MEDS ORDERED: atenoloL 25 MG TAB PO SCH (21:00)
[2022-06-15] MEDS ORDERED: LEVALBUTEROL 1.25 MG/0.5 ML CONCENTRATE NEB NEB ONE (23:00)
[2022-06-16 05:45] VITALS: BP 126/67
[2022-06-16] MEDS: LEVOTHYROXINE 50MCG TABLET (0.05MG) PO SCH (05:54)
[2022-06-16 06:01] VITALS: BP_SYST 112; BP_SYST 119; BP_SYST 126; BP_DIAS 53; BP_DIAS 57; BP_DIAS 67
[2022-06-16 06:43] LABS: BASO % 0.4 % (0.0-1.0); EOS # 0.3 10^3/uL (0.0-0.5); EOS % 2.7 % (0.0-3.0); HEMOGLOBIN 9.4 g/dl (13.5-17.5); LYMPH # 0.6 10^3/uL (1.5-5.0); LYMPH % 5.5 % (24.0-44.0); MEAN CORPUSCULAR HEMOGLOBIN 30.4 pg (27.0-33.0); MEAN CORPUSCULAR HGB CONC 30.3 g/dl (32.0-36.5); MEAN CORPUSCULAR VOLUME 100.3 fl (80.0-96.0); MONO # 1.4 10^3/uL (0.0-0.8); MONO % 13.4 % (2.0-8.0); NEUTROPHILS # 8.2 10^3/uL (1.5-8.5); NEUTROPHILS % 77.4 % (36.0-66.0); PLATELET COUNT, AUTOMATED 252 10^3/uL (150-450); RED BLOOD COUNT 3.09 10^6/uL (4.30-6.10); WHITE BLOOD COUNT 10.6 10^3/uL (4.0-10.0)
[2022-06-16 07:03] LABS: BLOOD UREA NITROGEN 24 MG/DL (7-18); CALCIUM LEVEL 8.4 MG/DL (8.8-10.2); CARBON DIOXIDE LEVEL 27 MEQ/L (21-32); CHLORIDE LEVEL 112 MEQ/L (98-107); CREATININE FOR GFR 1.28 MG/DL (0.70-1.30); GLOMERULAR FILTRATION RATE 58.8 (>42); GLUCOSE, FASTING 161 MG/DL (70-100); MAGNESIUM LEVEL 2.2 MG/DL (1.8-2.4); POTASSIUM SERUM 3.8 MEQ/L (3.5-5.1); SODIUM LEVEL 147 MEQ/L (136-145)
[2022-06-16 08:24] LABS: ALBUMIN 2.7 GM/DL (3.2-5.2); ALT/SGPT 22 U/L (12-78); BILIRUBIN,DIRECT < 0.1 MG/DL (0.0-0.2); BILIRUBIN,TOTAL 0.3 MG/DL (0.2-1.0); TOTAL PROTEIN 6.1 GM/DL (6.4-8.2)
[2022-06-16] MEDS: DOCUSATE SODIUM 100MG CAPSULE PO SCH (09:30)
[2022-06-16] MEDS: MULTIVITAMINS/MINERALS THERAP 1 TAB PO SCH (09:30)
[2022-06-16] MEDS: CYANOCOBALAMIN 500 MCG TAB PO SCH (09:30)
[2022-06-16] MEDS: POTASSIUM CHLORIDE 10MEQ SR TABLET PO SCH (09:30)
[2022-06-16] MEDS: INSULIN LISPRO (NovoLOG) PER UNIT SC SCH (09:30)
[2022-06-16] MEDS ORDERED: TORS20TA2 PO (09:31)
[2022-06-16] MEDS: TORSEMIDE 20 MG TAB PO SCH (09:31)
[2022-06-16] MEDS: PYRIDOXINE 50 MG TAB PO SCH (09:31)
[2022-06-16] MEDS: guaiFENesin ER 600 MG TAB PO SCH (09:31)
[2022-06-16] MEDS ORDERED: SPIR-10 PO (09:31)
[2022-06-16] MEDS: SPIRONOLACTONE 25 MG TAB PO SCH (09:31)
[2022-06-16] MEDS: APIXABAN 5 MG TAB (ELIQUIS) PO SCH (09:31)
[2022-06-16] MEDS ORDERED: TRES100I SC (09:31)
[2022-06-16] MEDS: SODIUM CHLORIDE 0.9% INJ 10 ML SYR IV SCH (09:32)
[2022-06-16] MEDS: LEVEMIR (INSULIN DETEMIR) 1 UNITS/0.01ML SC SCH (09:32)
[2022-06-16] MEDS ORDERED: POTA-136 PO (09:34)
[2022-06-16] MEDS ORDERED: ATEN25TA PO (09:34)
[2022-06-16] MEDS ORDERED: SENN18TA PO (09:34)
== END 2022-06-16 12:12 | disposition home health service (06) | DRG 291 ==
LOC: M ED 12:16 → M ED INP 17:15 → ENRESERV 19:47 → M ICU 21:25 → M MSPAV 06-13 14:03
PROVIDERS: ADMIT Internal Medicine Nephrology; ATTEND Internal Medicine Nephrology
PROC: BW24YZZ Computerized Tomography (CT Scan) of Chest and Abdomen using Other Contrast (ICD-10-PCS; principal; 2022-06-11)
PROC: B246ZZZ Ultrasonography of Right and Left Heart (ICD-10-PCS; 2022-06-12)
DX: I13.0 Hypertensive heart and chronic kidney disease with heart failure and stage 1 through stage 4 chronic kidney disease, or unspecified chronic kidney disease (principal); I50.33 Acute on chronic diastolic (congestive) heart failure; J96.11 Chronic respiratory failure with hypoxia; Z68.41 Body mass index [BMI] 40.0-44.9, adult; C34.90 Malignant neoplasm of unspecified part of unspecified bronchus or lung; C79.51 Secondary malignant neoplasm of bone; C78.1 Secondary malignant neoplasm of mediastinum; I27.20 Pulmonary hypertension, unspecified; R59.0 Localized enlarged lymph nodes; E11.22 Type 2 diabetes mellitus with diabetic chronic kidney disease; N18.30 Chronic kidney disease, stage 3 unspecified; E66.01 Morbid (severe) obesity due to excess calories; K21.9 Gastro-esophageal reflux disease without esophagitis; N20.0 Calculus of kidney; Z85.46 Personal history of malignant neoplasm of prostate; E78.5 Hyperlipidemia, unspecified; M48.061 Spinal stenosis, lumbar region without neurogenic claudication; K44.9 Diaphragmatic hernia without obstruction or gangrene; Z86.711 Personal history of pulmonary embolism; Z99.81 Dependence on supplemental oxygen; Z92.3 Personal history of irradiation; Z92.21 Personal history of antineoplastic chemotherapy; I50.810 Right heart failure, unspecified; Z96.641 Presence of right artificial hip joint; Z90.79 Acquired absence of other genital organ(s); Z90.49 Acquired absence of other specified parts of digestive tract; Z87.891 Personal history of nicotine dependence; Z79.4 Long term (current) use of insulin; Z79.84 Long term (current) use of oral hypoglycemic drugs; Z79.899 Other long term (current) drug therapy; Z20.822 Contact with and (suspected) exposure to COVID-19

== ENCOUNTER → 2022-06-17 | Outpatient (CLI) | payer MEDICARE, BC, OTHER ==
[~2022-06-17] MED LIST changes: +CORT5TAB2 PO; +ELIQ5TAB PO; +KP F1200 PO; +POTA-136 PO; +PROAAER10 INH; +SENN18TA PO; +SPIR-10 PO; +TORS20TA2 PO; +oxygen
== END ==
LOC: M RAD 09:27
PROVIDERS: ATTEND Internal Medicine Medical Oncology
DX: C61 Malignant neoplasm of prostate (principal); C79.51 Secondary malignant neoplasm of bone
CPT/HCPCS: 78306; A9503

== ENCOUNTER 2022-06-26 14:38 | Inpatient (IN) | payer MEDICARE, BC, OTHER ==
[~2022-06-26] VITALS: Ht 185.4 cm; Wt 137.5 kg
[~2022-06-26 14:38] MED LIST changes: +SODIUM CHLORIDE 0.9% INJ 10 ML SYR IV SCH
[2022-06-26 15:43] LABS: BASO % 0.3 % (0.0-1.0); EOS # 0.3 10^3/uL (0.0-0.5); EOS % 2.1 % (0.0-3.0); HEMATOCRIT 34.4 % (42.0-52.0); HEMOGLOBIN 10.8 g/dl (13.5-17.5); LYMPH # 0.5 10^3/uL (1.5-5.0); LYMPH % 4.2 % (24.0-44.0); MEAN CORPUSCULAR HEMOGLOBIN 29.9 pg (27.0-33.0); MEAN CORPUSCULAR HGB CONC 31.4 g/dl (32.0-36.5); MEAN CORPUSCULAR VOLUME 95.3 fl (80.0-96.0); MONO # 1.3 10^3/uL (0.0-0.8); MONO % 10.3 % (2.0-8.0); NEUTROPHILS # 10.5 10^3/uL (1.5-8.5); NEUTROPHILS % 82.5 % (36.0-66.0); PLATELET COUNT, AUTOMATED 272 10^3/uL (150-450); RED BLOOD COUNT 3.61 10^6/uL (4.30-6.10); WHITE BLOOD COUNT 12.7 10^3/uL (4.0-10.0)
[2022-06-26 16:24] LABS: CALCIUM LEVEL 9.5 MG/DL (8.8-10.2); CREATININE FOR GFR 1.46 MG/DL (0.70-1.30); GLOMERULAR FILTRATION RATE 50.5 (>42); POTASSIUM SERUM 4.7 MEQ/L (3.5-5.1)
[2022-06-26 18:43] LABS: RSV AMPLIFICATION NEGATIVE (NEGATIVE)
[2022-06-26] MEDS ORDERED: GLUCOSE 4GM CHEW TABLET PO PRN (19:50)
[2022-06-26] MEDS ORDERED: DEXTROSE 50% 50 ML SYRINGE IV PRN (19:50)
[2022-06-26] MEDS ORDERED: GLUCAGON INJ 1MG VIAL SC PRN (19:50)
[2022-06-26] MEDS ORDERED: ALBUTEROL 90 MCG/ACT 8GM HFA INHALER INH PRN (19:50)
[2022-06-26] MEDS ORDERED: TRES100I SC (20:35)
[2022-06-26] MEDS: ACETAMINOPHEN TAB 650MG DOSE (2X325MG) PO PRN (20:40)
[2022-06-26] MEDS ORDERED: LEVO50TA5 PO (20:58)
[2022-06-26] MEDS: INSULIN LISPRO (NovoLOG) PER UNIT SC SCH (20:58)
[2022-06-26] MEDS: APIXABAN 5 MG TAB (ELIQUIS) PO SCH (20:58)
[2022-06-26] MEDS ORDERED: HOME MED LIST COMPLETE! XX SCH (21:00)
[2022-06-26] MEDS ORDERED: ATORVASTATIN 20 MG TAB PO SCH (21:00)
[2022-06-27] VITALS (7 sets, daily range): BP systolic 68–167; BP diastolic 40–87
[2022-06-27] MEDS: traMADol 50 MG TAB PO SCH ×3 (00:26→21:20)
[2022-06-27] MEDS ORDERED: SODIUM CHLORIDE 0.9% INJ 10 ML SYR IV PRN (02:10)
[2022-06-27] MEDS: LIDOCAINE 5% (LIDODERM) PATCH TD SCH ×2 (03:17→21:19)
[2022-06-27] MEDS: LEVOTHYROXINE 50MCG TABLET (0.05MG) PO SCH (05:10)
[2022-06-27 06:24] LABS: HEMOGLOBIN 10.5 g/dl (13.5-17.5); MEAN CORPUSCULAR HGB CONC 30.9 g/dl (32.0-36.5); MEAN CORPUSCULAR VOLUME 93.9 fl (80.0-96.0); PLATELET COUNT, AUTOMATED 207 10^3/uL (150-450); RED BLOOD COUNT 3.62 10^6/uL (4.30-6.10); WHITE BLOOD COUNT 10.3 10^3/uL (4.0-10.0)
[2022-06-27 06:56] LABS: ALBUMIN 2.6 GM/DL (3.2-5.2); BILIRUBIN,TOTAL 0.6 MG/DL (0.2-1.0); CALCIUM LEVEL 8.9 MG/DL (8.8-10.2); CREATININE FOR GFR 1.33 MG/DL (0.70-1.30); GLOMERULAR FILTRATION RATE 56.3 (>42); POTASSIUM SERUM 4.5 MEQ/L (3.5-5.1); TOTAL PROTEIN 5.5 GM/DL (6.4-8.2)
[2022-06-27] MEDS ORDERED: TORSEMIDE 20 MG TAB PO SCH (09:00)
[2022-06-27] MEDS: atenoloL 25 MG TAB PO SCH (09:00)
[2022-06-27] MEDS: SODIUM CHLORIDE 0.9% INJ 10 ML SYR IV SCH (09:00)
[2022-06-27] MEDS: **NOTE PATIENT COMMENT** MISC XX SCH (09:00)
[2022-06-27] MEDS: APIXABAN 5 MG TAB (ELIQUIS) PO SCH ×2 (10:02→21:20)
[2022-06-27] MEDS: ATORVASTATIN 20 MG TAB PO SCH (10:02)
[2022-06-27] MEDS: INSULIN LISPRO (NovoLOG) PER UNIT SC SCH ×4 (10:02→21:19)
[2022-06-27] MEDS: SPIRONOLACTONE 25 MG TAB PO SCH ×2 (10:52→18:20)
[2022-06-27] MEDS: TORSEMIDE 20 MG TAB PO SCH ×2 (10:52→18:20)
[2022-06-27] MEDS: ACETAMINOPHEN TAB 650MG DOSE (2X325MG) PO PRN (13:32)
[2022-06-27] MEDS ORDERED: NYSTATIN CREAM 15 GM TOP PRN (15:00)
[2022-06-28] MEDS: LEVOTHYROXINE 50MCG TABLET (0.05MG) PO SCH (05:51)
[2022-06-28 06:00] VITALS: BP_SYST 121; BP_SYST 158; BP_DIAS 64; BP_DIAS 82
[2022-06-28 07:30] LABS: HEMATOCRIT 34.6 % (42.0-52.0); HEMOGLOBIN 10.8 g/dl (13.5-17.5); MEAN CORPUSCULAR HGB CONC 31.2 g/dl (32.0-36.5); PLATELET COUNT, AUTOMATED 283 10^3/uL (150-450); RED BLOOD COUNT 3.72 10^6/uL (4.30-6.10); WHITE BLOOD COUNT 13.7 10^3/uL (4.0-10.0)
[2022-06-28 08:16] LABS: ALBUMIN 2.6 GM/DL (3.2-5.2); BILIRUBIN,TOTAL 0.6 MG/DL (0.2-1.0); CALCIUM LEVEL 8.7 MG/DL (8.8-10.2); CREATININE FOR GFR 1.57 MG/DL (0.70-1.30); GLOMERULAR FILTRATION RATE 46.5 (>42); POTASSIUM SERUM 4.6 MEQ/L (3.5-5.1); TOTAL PROTEIN 5.9 GM/DL (6.4-8.2)
[2022-06-28] MEDS: ATORVASTATIN 20 MG TAB PO SCH (08:40)
[2022-06-28 08:42] VITALS: BP 151/87
[2022-06-28] MEDS: atenoloL 25 MG TAB PO SCH (08:42)
[2022-06-28] MEDS: traMADol 50 MG TAB PO SCH (08:42)
[2022-06-28] MEDS: SPIRONOLACTONE 25 MG TAB PO SCH (08:43)
[2022-06-28] MEDS: INSULIN LISPRO (NovoLOG) PER UNIT SC SCH ×2 (08:43→12:33)
[2022-06-28] MEDS: TORSEMIDE 20 MG TAB PO SCH (08:43)
[2022-06-28] MEDS: APIXABAN 5 MG TAB (ELIQUIS) PO SCH (08:44)
[2022-06-28] MEDS: **NOTE PATIENT COMMENT** MISC XX SCH (09:00)
[2022-06-28] MEDS: SODIUM CHLORIDE 0.9% INJ 10 ML SYR IV SCH (09:10)
[2022-06-28 10:08] VITALS: BP_SYST 114; BP_SYST 121; BP_SYST 134; BP_DIAS 68; BP_DIAS 70; BP_DIAS 73
[2022-06-28] MEDS ORDERED: NYST10CR TOP (11:28)
[2022-06-28] MEDS ORDERED: TORS20TA2 PO (11:28)
== END 2022-06-28 14:12 | DRG 312 ==
LOC: M ED 14:38 → EDBD 14:38 → M ED INP 18:37 → M MSPAV 23:40
PROVIDERS: ADMIT Family Medicine; ATTEND Family Medicine
DX: I95.1 Orthostatic hypotension (principal); I50.32 Chronic diastolic (congestive) heart failure; J96.10 Chronic respiratory failure, unspecified whether with hypoxia or hypercapnia; E11.9 Type 2 diabetes mellitus without complications; I11.0 Hypertensive heart disease with heart failure; E78.5 Hyperlipidemia, unspecified; E03.9 Hypothyroidism, unspecified; J30.2 Other seasonal allergic rhinitis; Z99.81 Dependence on supplemental oxygen; Z85.46 Personal history of malignant neoplasm of prostate; Z86.711 Personal history of pulmonary embolism; Z79.01 Long term (current) use of anticoagulants; Z79.890 Hormone replacement therapy; Z79.84 Long term (current) use of oral hypoglycemic drugs; Z79.899 Other long term (current) drug therapy; Z91.011 Allergy to milk products

== ENCOUNTER 2022-08-13 15:23 | Inpatient (IN) | payer MEDICARE, BC, OTHER ==
[~2022-08-13] VITALS: Ht 185.4 cm; Wt 124.9 kg
[~2022-08-13 15:23] MED LIST changes: +NYST-13 TOP; +POTA-151 PO; -SODIUM CHLORIDE 0.9% INJ 10 ML SYR IV SCH
[2022-08-13 16:41] LABS: ABG BASE EXCESS 4.9 (-2.0-2.0); ABG HCO3 27.6 MEQ/L (22.0-26.0); ABG O2 SATURATION 96.2 % (95.0-99.0); ABG PARTIAL PRESSURE CO2 34.1 mmHg (35.0-45.0); ABG STANDARD HCO3 28.8 MEQ/L (22.0-26.0); ABG TOTAL CO2 28.6 MEQ/L (23.0-31.0); ABG pH (ARTERIAL) 7.526 UNITS (7.350-7.450)
[2022-08-13 16:50] LABS: BASO % 0.1 % (0.0-1.0); HEMATOCRIT 33.8 % (42.0-52.0); HEMOGLOBIN 10.1 g/dl (13.5-17.5); LYMPH # 0.5 10^3/uL (1.5-5.0); MEAN CORPUSCULAR HEMOGLOBIN 25.8 pg (27.0-33.0); MEAN CORPUSCULAR HGB CONC 29.9 g/dl (32.0-36.5); MEAN CORPUSCULAR VOLUME 86.2 fl (80.0-96.0); MONO % 9.8 % (2.0-8.0); NEUTROPHILS # 13.6 10^3/uL (1.5-8.5); NEUTROPHILS % 85.8 % (36.0-66.0); PLATELET COUNT, AUTOMATED 175 10^3/uL (150-450); RED BLOOD COUNT 3.92 10^6/uL (4.30-6.10); WHITE BLOOD COUNT 15.8 10^3/uL (4.0-10.0)
[2022-08-13 17:17] LABS: MONO # 1.6 10^3/uL (0.0-0.8)
[2022-08-13 17:22] LABS: CK-MB VALUE MASS 1.8 NG/ML (<3.6); MB/CK RELATIVE INDEX 0.28 (< OR =4)
[2022-08-13 17:57] LABS: ALBUMIN 2.1 GM/DL (3.2-5.2); ALT/SGPT 28 U/L (12-78); BILIRUBIN,DIRECT 0.2 MG/DL (0.0-0.2); BILIRUBIN,TOTAL 0.4 MG/DL (0.2-1.0); BLOOD UREA NITROGEN 24 MG/DL (7-18); CALCIUM LEVEL 7.6 MG/DL (8.8-10.2); CARBON DIOXIDE LEVEL 27 MEQ/L (21-32); CHLORIDE LEVEL 103 MEQ/L (98-107); FREE T4 1.58 NG/DL (0.76-1.46); GLOMERULAR FILTRATION RATE > 60.0 (>42); GLUCOSE, FASTING 164 MG/DL (70-100); NT-PRO BNP 3234 PG/ML (<125); POTASSIUM SERUM 4.4 MEQ/L (3.5-5.1); SODIUM LEVEL 137 MEQ/L (136-145); TOTAL PROTEIN 5.4 GM/DL (6.4-8.2)
[2022-08-13] MEDS ORDERED: ISOVUE-370 76% 100ML VIAL As Ordered ONE (18:05)
[2022-08-13 18:36] LABS: CK-MB VALUE MASS 1.6 NG/ML (<3.6); MB/CK RELATIVE INDEX 0.24 (< OR =4)
[2022-08-13] MEDS ORDERED: PIPERACILLIN/TAZOBACTAM SOD 4.5 GM in D5W MINI-BAG PLUS 50 ML IV ONE (19:05)
[2022-08-13] MEDS ORDERED: VANCOMYCIN HCL 1,000 MG, VIAL MATE ADAPTER 1 EACH in NS 250 ML IV SCH (19:05)
[2022-08-13] MEDS ORDERED: VANCOMYCIN HCL 1,000 MG, VIAL MATE ADAPTER 1 EACH in NS 250 ML IV ONE ×2 (20:00→21:00)
[2022-08-13] MEDS ORDERED: METH4PACK PO (20:21)
[2022-08-13] MEDS ORDERED: NYST1CRE15 TOP (20:21)
[2022-08-13] MEDS ORDERED: TORS20TA2 PO (20:21)
[2022-08-13] MEDS ORDERED: AZIT-12 PO (20:21)
[2022-08-13] MEDS ORDERED: HOME MED LIST COMPLETE! XX SCH (20:25)
[2022-08-13] MEDS ORDERED: MYCOLOG CREAM 15 GM (NYSTATIN/TRIAMCINOLONE) TOP PRN (21:45)
[2022-08-13] MEDS ORDERED: ALBUTEROL 90 MCG/ACT 8GM HFA INHALER INH PRN (21:55)
[2022-08-13 21:57] VITALS: BP 127/58
[2022-08-13] MEDS: traMADol 50 MG TAB PO SCH (22:46)
[2022-08-13] MEDS: APIXABAN 5 MG TAB (ELIQUIS) PO SCH (22:46)
[2022-08-13 23:50] VITALS: BP 132/60
[2022-08-14] VITALS (7 sets, daily range): BP systolic 112–146; BP diastolic 57–83
[2022-08-14] MEDS: DOXYCYCLINE HYCLATE 100 MG in D5W MINI-BAG PLUS 100 ML IV SCH ×3 (00:28→23:54)
[2022-08-14] MEDS ORDERED: GLUCAGON INJ 1MG VIAL SC PRN (01:30)
[2022-08-14] MEDS ORDERED: GLUCOSE 4GM CHEW TABLET PO PRN (01:30)
[2022-08-14] MEDS ORDERED: DEXTROSE 50% 50 ML SYRINGE IV PRN (01:30)
[2022-08-14] MEDS: cefTRIAXone SOD 1 GM in D5W MINI-BAG PLUS 50 ML IV SCH (05:00)
[2022-08-14] MEDS: LEVOTHYROXINE 50MCG TABLET (0.05MG) PO SCH (05:34)
[2022-08-14] MEDS: INSULIN LISPRO (NovoLOG) PER UNIT SC SCH ×4 (07:30→20:40)
[2022-08-14] MEDS ORDERED: metFORMIN (GLUCOPHAGE) 500MG TAB PO SCH (08:00)
[2022-08-14] MEDS: MULTIVITAMINS/MINERALS THERAP 1 TAB PO SCH (08:36)
[2022-08-14] MEDS: guaiFENesin ER 600 MG TAB PO SCH ×2 (08:36→20:46)
[2022-08-14] MEDS: PYRIDOXINE 50 MG TAB PO SCH (08:36)
[2022-08-14] MEDS: CYANOCOBALAMIN 500 MCG TAB PO SCH (08:37)
[2022-08-14] MEDS: TORSEMIDE 20 MG TAB PO SCH ×2 (08:38→16:56)
[2022-08-14] MEDS: atenoloL 25 MG TAB PO SCH (08:38)
[2022-08-14] MEDS: APIXABAN 5 MG TAB (ELIQUIS) PO SCH ×2 (08:39→20:46)
[2022-08-14] MEDS: traMADol 50 MG TAB PO SCH ×2 (08:40→20:47)
[2022-08-14] MEDS: SODIUM CHLORIDE 0.9% INJ 10 ML SYR IV SCH (16:57)
[2022-08-15] MEDS: SODIUM CHLORIDE 0.9% INJ 10 ML SYR IV PRN (01:58)
[2022-08-15 04:17] VITALS: BP 146/67
[2022-08-15 05:19] LABS: HEMATOCRIT 33.1 % (42.0-52.0); HEMOGLOBIN 9.8 g/dl (13.5-17.5); MEAN CORPUSCULAR HEMOGLOBIN 26.2 pg (27.0-33.0); MEAN CORPUSCULAR HGB CONC 29.6 g/dl (32.0-36.5); MEAN CORPUSCULAR VOLUME 88.5 fl (80.0-96.0); PLATELET COUNT, AUTOMATED 140 10^3/uL (150-450); RED BLOOD COUNT 3.74 10^6/uL (4.30-6.10); WHITE BLOOD COUNT 12.3 10^3/uL (4.0-10.0)
[2022-08-15] MEDS: cefTRIAXone SOD 1 GM in D5W MINI-BAG PLUS 50 ML IV SCH (05:41)
[2022-08-15] MEDS: LEVOTHYROXINE 50MCG TABLET (0.05MG) PO SCH (05:41)
[2022-08-15] MEDS: SODIUM CHLORIDE 0.9% INJ 10 ML SYR IV SCH (06:32)
[2022-08-15 07:05] LABS: BLOOD UREA NITROGEN 23 MG/DL (7-18); CALCIUM LEVEL 7.2 MG/DL (8.8-10.2); CARBON DIOXIDE LEVEL 29 MEQ/L (21-32); CHLORIDE LEVEL 103 MEQ/L (98-107); CREATININE FOR GFR 0.95 MG/DL (0.70-1.30); GLOMERULAR FILTRATION RATE > 60.0 (>42); GLUCOSE, FASTING 139 MG/DL (70-100); MAGNESIUM LEVEL 1.9 MG/DL (1.8-2.4); PHOSPHORUS LEVEL 4.4 MG/DL (2.5-4.9); POTASSIUM SERUM 3.5 MEQ/L (3.5-5.1); SODIUM LEVEL 139 MEQ/L (136-145)
[2022-08-15 07:49] VITALS: BP 129/67
[2022-08-15] MEDS: TORSEMIDE 20 MG TAB PO SCH ×2 (09:17→17:36)
[2022-08-15] MEDS: CYANOCOBALAMIN 500 MCG TAB PO SCH (09:17)
[2022-08-15] MEDS: INSULIN LISPRO (NovoLOG) PER UNIT SC SCH ×4 (09:17→20:38)
[2022-08-15] MEDS: PYRIDOXINE 50 MG TAB PO SCH (09:18)
[2022-08-15] MEDS: guaiFENesin ER 600 MG TAB PO SCH ×2 (09:19→20:38)
[2022-08-15] MEDS: APIXABAN 5 MG TAB (ELIQUIS) PO SCH ×2 (09:19→20:38)
[2022-08-15] MEDS: traMADol 50 MG TAB PO SCH ×2 (09:19→20:38)
[2022-08-15] MEDS: MULTIVITAMINS/MINERALS THERAP 1 TAB PO SCH (09:19)
[2022-08-15] MEDS: atenoloL 25 MG TAB PO SCH (09:24)
[2022-08-15] MEDS: DOXYCYCLINE HYCLATE 100 MG in D5W MINI-BAG PLUS 100 ML IV SCH (12:05)
[2022-08-15 13:11] VITALS: BP_SYST 102; BP_SYST 130; BP_SYST 134; BP_DIAS 52; BP_DIAS 64; BP_DIAS 66
[2022-08-15 18:00] VITALS: BP 149/70
[2022-08-15 20:26] VITALS: BP 149/71
[2022-08-16] MEDS: DOXYCYCLINE HYCLATE 100 MG in D5W MINI-BAG PLUS 100 ML IV SCH ×3 (00:13→23:46)
[2022-08-16] MEDS: SODIUM CHLORIDE 0.9% INJ 10 ML SYR IV PRN (01:38)
[2022-08-16] MEDS: LEVOTHYROXINE 50MCG TABLET (0.05MG) PO SCH (05:19)
[2022-08-16] MEDS: cefTRIAXone SOD 1 GM in D5W MINI-BAG PLUS 50 ML IV SCH (05:19)
[2022-08-16 05:29] VITALS: BP 147/89
[2022-08-16 06:19] LABS: BASO % 0.2 % (0.0-1.0); EOS # 0.1 10^3/uL (0.0-0.5); EOS % 0.6 % (0.0-3.0); HEMATOCRIT 33.7 % (42.0-52.0); HEMOGLOBIN 9.9 g/dl (13.5-17.5); LYMPH # 0.6 10^3/uL (1.5-5.0); LYMPH % 5.1 % (24.0-44.0); MEAN CORPUSCULAR HEMOGLOBIN 25.3 pg (27.0-33.0); MEAN CORPUSCULAR HGB CONC 29.4 g/dl (32.0-36.5); MONO # 0.9 10^3/uL (0.0-0.8); NEUTROPHILS # 9.6 10^3/uL (1.5-8.5); NEUTROPHILS % 84.8 % (36.0-66.0); PLATELET COUNT, AUTOMATED 179 10^3/uL (150-450); RED BLOOD COUNT 3.92 10^6/uL (4.30-6.10); WHITE BLOOD COUNT 11.3 10^3/uL (4.0-10.0)
[2022-08-16 06:57] LABS: BLOOD UREA NITROGEN 24 MG/DL (7-18); CALCIUM LEVEL 6.5 MG/DL (8.8-10.2); CARBON DIOXIDE LEVEL 29 MEQ/L (21-32); CHLORIDE LEVEL 101 MEQ/L (98-107); CREATININE FOR GFR 0.96 MG/DL (0.70-1.30); GLOMERULAR FILTRATION RATE > 60.0 (>42); GLUCOSE, FASTING 144 MG/DL (70-100); POTASSIUM SERUM 3.2 MEQ/L (3.5-5.1); SODIUM LEVEL 138 MEQ/L (136-145)
[2022-08-16] MEDS: SODIUM CHLORIDE 0.9% INJ 10 ML SYR IV SCH (07:42)
[2022-08-16] MEDS ORDERED: POTASSIUM CHLORIDE 10MEQ SR TABLET PO ONE ×2 (08:00→15:35)
[2022-08-16] MEDS: INSULIN LISPRO (NovoLOG) PER UNIT SC SCH ×4 (08:21→21:00)
[2022-08-16] MEDS: MAGNESIUM OXIDE 400MG TAB (MAG-OX) PO SCH ×2 (08:22→22:02)
[2022-08-16] MEDS: MULTIVITAMINS/MINERALS THERAP 1 TAB PO SCH (08:22)
[2022-08-16] MEDS: atenoloL 25 MG TAB PO SCH (08:22)
[2022-08-16] MEDS: traMADol 50 MG TAB PO SCH ×2 (08:22→22:02)
[2022-08-16] MEDS: TORSEMIDE 20 MG TAB PO SCH (08:23)
[2022-08-16] MEDS: CYANOCOBALAMIN 500 MCG TAB PO SCH (08:23)
[2022-08-16] MEDS: PYRIDOXINE 50 MG TAB PO SCH (08:23)
[2022-08-16] MEDS: guaiFENesin ER 600 MG TAB PO SCH ×2 (08:23→22:01)
[2022-08-16] MEDS: APIXABAN 5 MG TAB (ELIQUIS) PO SCH ×2 (08:23→22:01)
[2022-08-16] MEDS: CALCIUM GLUCONATE 1,000 MG in D5W MINI-BAG PLUS 100 ML IV SCH ×2 (10:13→11:40)
[2022-08-16] MEDS ORDERED: LR 250 ML IV ONE (11:45)
[2022-08-16 14:39] VITALS: BP 136/66
[2022-08-16 15:31] LABS: BLOOD UREA NITROGEN 23 MG/DL (7-18); CALCIUM LEVEL 7.2 MG/DL (8.8-10.2); CARBON DIOXIDE LEVEL 26 MEQ/L (21-32); CHLORIDE LEVEL 100 MEQ/L (98-107); CREATININE FOR GFR 0.93 MG/DL (0.70-1.30); GLOMERULAR FILTRATION RATE > 60.0 (>42); GLUCOSE, FASTING 221 MG/DL (70-100); POTASSIUM SERUM 3.4 MEQ/L (3.5-5.1); SODIUM LEVEL 134 MEQ/L (136-145)
[2022-08-16 16:46] LABS: MAGNESIUM LEVEL 1.7 MG/DL (1.8-2.4); PTH INTACT 257.5 PG/ML (18.5-88.0); TOTAL 25(OH) VITAMIN D 22.4 NG/ML (30.0-100.0)
[2022-08-16 21:40] VITALS: BP 139/76
[2022-08-17] MEDS: LEVOTHYROXINE 50MCG TABLET (0.05MG) PO SCH (06:31)
[2022-08-17] MEDS: cefTRIAXone SOD 1 GM in D5W MINI-BAG PLUS 50 ML IV SCH (06:31)
[2022-08-17 06:57] LABS: BASO % 0.2 % (0.0-1.0); EOS # 0.1 10^3/uL (0.0-0.5); EOS % 0.7 % (0.0-3.0); HEMATOCRIT 34.5 % (42.0-52.0); HEMOGLOBIN 10.5 g/dl (13.5-17.5); LYMPH # 0.6 10^3/uL (1.5-5.0); LYMPH % 5.4 % (24.0-44.0); MEAN CORPUSCULAR HEMOGLOBIN 25.7 pg (27.0-33.0); MEAN CORPUSCULAR HGB CONC 30.4 g/dl (32.0-36.5); MEAN CORPUSCULAR VOLUME 84.4 fl (80.0-96.0); MONO # 0.9 10^3/uL (0.0-0.8); MONO % 8.3 % (2.0-8.0); NEUTROPHILS # 9.4 10^3/uL (1.5-8.5); NEUTROPHILS % 83.7 % (36.0-66.0); PLATELET COUNT, AUTOMATED 188 10^3/uL (150-450); RED BLOOD COUNT 4.09 10^6/uL (4.30-6.10); WHITE BLOOD COUNT 11.3 10^3/uL (4.0-10.0)
[2022-08-17 07:04] VITALS: BP 139/67
[2022-08-17] MEDS: SODIUM CHLORIDE 0.9% INJ 10 ML SYR IV SCH (07:32)
[2022-08-17 07:49] LABS: BLOOD UREA NITROGEN 22 MG/DL (7-18); CREATININE FOR GFR 0.88 MG/DL (0.70-1.30); GLUCOSE, FASTING 183 MG/DL (70-100)
[2022-08-17 07:50] LABS: CALCIUM LEVEL 7.1 MG/DL (8.8-10.2); CARBON DIOXIDE LEVEL 27 MEQ/L (21-32); CHLORIDE LEVEL 101 MEQ/L (98-107); GLOMERULAR FILTRATION RATE > 60.0 (>42); POTASSIUM SERUM 4.1 MEQ/L (3.5-5.1); SODIUM LEVEL 138 MEQ/L (136-145)
[2022-08-17 08:29] LABS: MAGNESIUM LEVEL 1.9 MG/DL (1.8-2.4)
[2022-08-17] MEDS: INSULIN LISPRO (NovoLOG) PER UNIT SC SCH ×4 (08:31→21:00)
[2022-08-17] MEDS: CYANOCOBALAMIN 500 MCG TAB PO SCH (08:31)
[2022-08-17] MEDS: guaiFENesin ER 600 MG TAB PO SCH ×2 (08:32→20:41)
[2022-08-17] MEDS: PYRIDOXINE 50 MG TAB PO SCH (08:32)
[2022-08-17] MEDS: MULTIVITAMINS/MINERALS THERAP 1 TAB PO SCH (08:32)
[2022-08-17] MEDS: atenoloL 25 MG TAB PO SCH (08:33)
[2022-08-17] MEDS: traMADol 50 MG TAB PO SCH ×2 (08:33→20:42)
[2022-08-17] MEDS: MAGNESIUM OXIDE 400MG TAB (MAG-OX) PO SCH ×2 (08:33→20:41)
[2022-08-17] MEDS: APIXABAN 5 MG TAB (ELIQUIS) PO SCH ×2 (08:33→20:41)
[2022-08-17] MEDS ORDERED: TORSEMIDE 20 MG TAB PO SCH ×2 (09:00→17:00)
[2022-08-17] MEDS ORDERED: MAG SULF 1GM/100ML (MAG RUN) 1 GM in IV 1 EA IV ONE (12:00)
[2022-08-17 12:23] LABS: VENOUS BASE EXCESS 5.7 (-2.0-2.0); VENOUS HCO3 28.2 MEQ/L (23.0-27.0); VENOUS O2 SATURATION 99.2 % (60.0-80.0); VENOUS PARTIAL PRESSURE CO2 33.8 mmHg (38.0-50.0); VENOUS PARTIAL PRESSURE O2 188.4 mmHg (30.0-50.0); VENOUS PH 7.539 UNITS (7.330-7.430); VENOUS STANDARD HCO3 29.6 MEQ/L; VENOUS TOTAL CO2 29.2 MEQ/L (24.0-28.0)
[2022-08-17 13:07] LABS: ALBUMIN 1.8 GM/DL (3.2-5.2); BILIRUBIN,DIRECT 0.2 MG/DL (0.0-0.2); BILIRUBIN,TOTAL 0.4 MG/DL (0.2-1.0); TOTAL PROTEIN 4.9 GM/DL (6.4-8.2)
[2022-08-17] MEDS: VITAMIN D 1,000 INTERNATIONAL UNITS TABLET PO SCH (13:40)
[2022-08-17 14:00] VITALS: BP_SYST 127; BP_SYST 139; BP_SYST 86; BP_SYST 89; BP_DIAS 50; BP_DIAS 54; BP_DIAS 64; BP_DIAS 68
[2022-08-17 14:01] VITALS: BP 86/50
[2022-08-17 14:03] VITALS: BP 89/54
[2022-08-17 15:11] VITALS: BP 127/64
[2022-08-17] MEDS ORDERED: SODIUM CHLORIDE 0.9% 1000ML IV ONE (15:30)
[2022-08-17 19:50] VITALS: BP 138/75
[2022-08-17] MEDS: AUGMENTIN 875 MG TAB PO SCH (20:41)
[2022-08-18 06:01] VITALS: BP 139/75
[2022-08-18] MEDS: LEVOTHYROXINE 50MCG TABLET (0.05MG) PO SCH (06:32)
[2022-08-18 06:33] LABS: BASO % 0.2 % (0.0-1.0); EOS # 0.1 10^3/uL (0.0-0.5); HEMATOCRIT 34.8 % (42.0-52.0); HEMOGLOBIN 10.3 g/dl (13.5-17.5); LYMPH # 0.5 10^3/uL (1.5-5.0); LYMPH % 4.9 % (24.0-44.0); MEAN CORPUSCULAR HEMOGLOBIN 25.3 pg (27.0-33.0); MEAN CORPUSCULAR HGB CONC 29.6 g/dl (32.0-36.5); MEAN CORPUSCULAR VOLUME 85.5 fl (80.0-96.0); MONO # 1.1 10^3/uL (0.0-0.8); MONO % 9.7 % (2.0-8.0); NEUTROPHILS # 8.9 10^3/uL (1.5-8.5); NEUTROPHILS % 82.7 % (36.0-66.0); PLATELET COUNT, AUTOMATED 181 10^3/uL (150-450); RED BLOOD COUNT 4.07 10^6/uL (4.30-6.10); WHITE BLOOD COUNT 10.8 10^3/uL (4.0-10.0)
[2022-08-18 07:18] LABS: BLOOD UREA NITROGEN 21 MG/DL (7-18); CALCIUM LEVEL 6.9 MG/DL (8.8-10.2); CARBON DIOXIDE LEVEL 27 MEQ/L (21-32); CHLORIDE LEVEL 102 MEQ/L (98-107); CREATININE FOR GFR 0.83 MG/DL (0.70-1.30); GLOMERULAR FILTRATION RATE > 60.0 (>42); GLUCOSE, FASTING 132 MG/DL (70-100); POTASSIUM SERUM 4.1 MEQ/L (3.5-5.1); SODIUM LEVEL 136 MEQ/L (136-145)
[2022-08-18 08:06] LABS: MAGNESIUM LEVEL 2.2 MG/DL (1.8-2.4)
[2022-08-18] MEDS: MAGNESIUM OXIDE 400MG TAB (MAG-OX) PO SCH ×2 (08:16→21:19)
[2022-08-18] MEDS: INSULIN LISPRO (NovoLOG) PER UNIT SC SCH ×4 (08:16→21:00)
[2022-08-18] MEDS: MULTIVITAMINS/MINERALS THERAP 1 TAB PO SCH (08:16)
[2022-08-18] MEDS: guaiFENesin ER 600 MG TAB PO SCH ×2 (08:16→21:18)
[2022-08-18] MEDS: AUGMENTIN 875 MG TAB PO SCH ×2 (08:16→21:19)
[2022-08-18] MEDS: APIXABAN 5 MG TAB (ELIQUIS) PO SCH ×2 (08:17→21:19)
[2022-08-18] MEDS: VITAMIN D 1,000 INTERNATIONAL UNITS TABLET PO SCH (08:17)
[2022-08-18] MEDS: CYANOCOBALAMIN 500 MCG TAB PO SCH (08:17)
[2022-08-18] MEDS: atenoloL 25 MG TAB PO SCH (08:17)
[2022-08-18] MEDS: PYRIDOXINE 50 MG TAB PO SCH (08:19)
[2022-08-18] MEDS: traMADol 50 MG TAB PO SCH ×2 (08:19→21:19)
[2022-08-18] MEDS: TORSEMIDE 20 MG TAB PO SCH (08:19)
[2022-08-18 08:52] LABS: VENOUS HCO3 28.2 MEQ/L (23.0-27.0); VENOUS O2 SATURATION 71.4 % (60.0-80.0); VENOUS PARTIAL PRESSURE CO2 46.1 mmHg (38.0-50.0); VENOUS PARTIAL PRESSURE O2 40.3 mmHg (30.0-50.0); VENOUS PH 7.405 UNITS (7.330-7.430); VENOUS STANDARD HCO3 26.6 MEQ/L; VENOUS TOTAL CO2 29.7 MEQ/L (24.0-28.0)
[2022-08-18] MEDS: SODIUM CHLORIDE 0.9% INJ 10 ML SYR IV SCH (09:46)
[2022-08-18] MEDS: CALCIUM/VITAMIN D 500 MG TAB PO SCH ×2 (11:36→21:19)
[2022-08-18 12:25] VITALS: BP_SYST 123; BP_SYST 129; BP_SYST 143; BP_DIAS 69; BP_DIAS 74
[2022-08-18 14:00] VITALS: BP 143/74
[2022-08-18 15:08] LABS: BODY FLUID CULTURE Not indicated. (.); LEGIONELLA ANTIGEN URINE Negative (Negative); ORGANISM ID Not indicated. (.); SPECIMEN SOURCE Urine (.); URINE STREP PNEUMONIAE ANTIGEN Negative (Negative)
[2022-08-18 22:00] VITALS: BP 136/63
[2022-08-19] MEDS: LEVOTHYROXINE 50MCG TABLET (0.05MG) PO SCH (05:10)
[2022-08-19 06:09] LABS: BASO % 0.2 % (0.0-1.0); EOS # 0.2 10^3/uL (0.0-0.5); EOS % 1.4 % (0.0-3.0); HEMATOCRIT 34.7 % (42.0-52.0); HEMOGLOBIN 10.2 g/dl (13.5-17.5); LYMPH # 0.5 10^3/uL (1.5-5.0); LYMPH % 4.5 % (24.0-44.0); MEAN CORPUSCULAR HEMOGLOBIN 25.1 pg (27.0-33.0); MEAN CORPUSCULAR HGB CONC 29.4 g/dl (32.0-36.5); MEAN CORPUSCULAR VOLUME 85.5 fl (80.0-96.0); MONO # 1.1 10^3/uL (0.0-0.8); MONO % 9.5 % (2.0-8.0); NEUTROPHILS # 9.3 10^3/uL (1.5-8.5); PLATELET COUNT, AUTOMATED 194 10^3/uL (150-450); RED BLOOD COUNT 4.06 10^6/uL (4.30-6.10); WHITE BLOOD COUNT 11.2 10^3/uL (4.0-10.0)
[2022-08-19 06:19] VITALS: BP 136/65
[2022-08-19 06:45] LABS: BLOOD UREA NITROGEN 22 MG/DL (7-18); CALCIUM LEVEL 7.2 MG/DL (8.8-10.2); CARBON DIOXIDE LEVEL 28 MEQ/L (21-32); CHLORIDE LEVEL 100 MEQ/L (98-107); CREATININE FOR GFR 0.84 MG/DL (0.70-1.30); GLOMERULAR FILTRATION RATE > 60.0 (>42); GLUCOSE, FASTING 139 MG/DL (70-100); POTASSIUM SERUM 4.4 MEQ/L (3.5-5.1); SODIUM LEVEL 136 MEQ/L (136-145)
[2022-08-19] MEDS: INSULIN LISPRO (NovoLOG) PER UNIT SC SCH ×4 (09:01→21:00)
[2022-08-19] MEDS: atenoloL 25 MG TAB PO SCH (09:17)
[2022-08-19] MEDS: CALCIUM/VITAMIN D 500 MG TAB PO SCH ×2 (09:18→21:25)
[2022-08-19] MEDS: guaiFENesin ER 600 MG TAB PO SCH ×2 (09:18→21:25)
[2022-08-19] MEDS: MAGNESIUM OXIDE 400MG TAB (MAG-OX) PO SCH ×2 (09:18→21:25)
[2022-08-19] MEDS: PYRIDOXINE 50 MG TAB PO SCH (09:18)
[2022-08-19] MEDS: VITAMIN D 1,000 INTERNATIONAL UNITS TABLET PO SCH (09:18)
[2022-08-19] MEDS: APIXABAN 5 MG TAB (ELIQUIS) PO SCH ×2 (09:18→21:25)
[2022-08-19] MEDS: MULTIVITAMINS/MINERALS THERAP 1 TAB PO SCH (09:18)
[2022-08-19] MEDS: TORSEMIDE 20 MG TAB PO SCH (09:19)
[2022-08-19] MEDS: CYANOCOBALAMIN 500 MCG TAB PO SCH (09:19)
[2022-08-19] MEDS: SODIUM CHLORIDE 0.9% INJ 10 ML SYR IV SCH (09:20)
[2022-08-19] MEDS: traMADol 50 MG TAB PO SCH ×2 (09:20→21:29)
[2022-08-19 10:30] LABS: TOTAL 25(OH) VITAMIN D 25.9 NG/ML (30.0-100.0)
[2022-08-19 12:30] VITALS: BP_SYST 123; BP_SYST 129; BP_SYST 143; BP_DIAS 72; BP_DIAS 74
[2022-08-19 22:01] VITALS: BP 142/67
[2022-08-20 05:16] VITALS: BP 141/69
[2022-08-20] MEDS: LEVOTHYROXINE 50MCG TABLET (0.05MG) PO SCH (05:24)
[2022-08-20 06:50] LABS: BASO % 0.2 % (0.0-1.0); EOS # 0.1 10^3/uL (0.0-0.5); EOS % 0.8 % (0.0-3.0); HEMATOCRIT 32.5 % (42.0-52.0); LYMPH # 0.5 10^3/uL (1.5-5.0); LYMPH % 4.6 % (24.0-44.0); MEAN CORPUSCULAR HGB CONC 30.8 g/dl (32.0-36.5); MEAN CORPUSCULAR VOLUME 84.6 fl (80.0-96.0); MONO % 8.9 % (2.0-8.0); NEUTROPHILS # 9.4 10^3/uL (1.5-8.5); NEUTROPHILS % 84.2 % (36.0-66.0); PLATELET COUNT, AUTOMATED 158 10^3/uL (150-450); RED BLOOD COUNT 3.84 10^6/uL (4.30-6.10); WHITE BLOOD COUNT 11.2 10^3/uL (4.0-10.0)
[2022-08-20 07:04] LABS: BLOOD UREA NITROGEN 19 MG/DL (7-18); CALCIUM LEVEL 7.7 MG/DL (8.8-10.2); CARBON DIOXIDE LEVEL 27 MEQ/L (21-32); CHLORIDE LEVEL 99 MEQ/L (98-107); CREATININE FOR GFR 0.73 MG/DL (0.70-1.30); GLOMERULAR FILTRATION RATE > 60.0 (>42); GLUCOSE, FASTING 157 MG/DL (70-100); POTASSIUM SERUM 4.2 MEQ/L (3.5-5.1); SODIUM LEVEL 135 MEQ/L (136-145)
[2022-08-20 08:13] VITALS: BP 141/69
[2022-08-20] MEDS: atenoloL 25 MG TAB PO SCH (08:13)
[2022-08-20] MEDS: guaiFENesin ER 600 MG TAB PO SCH (08:13)
[2022-08-20] MEDS: CALCIUM/VITAMIN D 500 MG TAB PO SCH (08:13)
[2022-08-20] MEDS: APIXABAN 5 MG TAB (ELIQUIS) PO SCH (08:14)
[2022-08-20] MEDS: CYANOCOBALAMIN 500 MCG TAB PO SCH (08:14)
[2022-08-20] MEDS: MAGNESIUM OXIDE 400MG TAB (MAG-OX) PO SCH (08:14)
[2022-08-20] MEDS: MULTIVITAMINS/MINERALS THERAP 1 TAB PO SCH (08:14)
[2022-08-20] MEDS: VITAMIN D 1,000 INTERNATIONAL UNITS TABLET PO SCH (08:14)
[2022-08-20] MEDS: TORSEMIDE 20 MG TAB PO SCH (08:14)
[2022-08-20] MEDS: INSULIN LISPRO (NovoLOG) PER UNIT SC SCH ×2 (08:15→12:00)
[2022-08-20] MEDS: PYRIDOXINE 50 MG TAB PO SCH (08:15)
[2022-08-20] MEDS: traMADol 50 MG TAB PO SCH (08:15)
[2022-08-20] MEDS: SODIUM CHLORIDE 0.9% INJ 10 ML SYR IV SCH (10:00)
[2022-08-20] MEDS ORDERED: COVID-19 VAC, BV (MODERNA)/PF 50 MCG/0.5 ML VIAL (EUA) IM.IMMUN ONE (10:00)
[2022-08-20] MEDS ORDERED: CALCD50TA PO (10:17)
[2022-08-20] MEDS ORDERED: VITAD1000T PO (10:17)
[2022-08-22] MEDS ORDERED: LYNP150T PO (16:32)
== END 2022-08-20 12:54 | disposition other institution (70) | DRG 194 ==
LOC: M ED 15:23 → M ED INP 20:00 → M PCU 22:05 → M MS5PR 08-15 17:51
PROVIDERS: ADMIT Family Medicine; ATTEND Student in an Organized Health Care Education/Training Program
DX: J18.9 Pneumonia, unspecified organism (principal); J44.1 Chronic obstructive pulmonary disease with (acute) exacerbation; J44.0 Chronic obstructive pulmonary disease with (acute) lower respiratory infection; I50.32 Chronic diastolic (congestive) heart failure; J96.11 Chronic respiratory failure with hypoxia; C78.7 Secondary malignant neoplasm of liver and intrahepatic bile duct; C79.51 Secondary malignant neoplasm of bone; M62.82 Rhabdomyolysis; S42.291A Other displaced fracture of upper end of right humerus, initial encounter for closed fracture; E87.3 Alkalosis; B95.8 Unspecified staphylococcus as the cause of diseases classified elsewhere; Z99.81 Dependence on supplemental oxygen; Z86.711 Personal history of pulmonary embolism; Z85.46 Personal history of malignant neoplasm of prostate; Z92.21 Personal history of antineoplastic chemotherapy; R29.6 Repeated falls; R26.89 Other abnormalities of gait and mobility; Z79.01 Long term (current) use of anticoagulants; Z79.4 Long term (current) use of insulin; Z79.890 Hormone replacement therapy; Z79.84 Long term (current) use of oral hypoglycemic drugs; Z79.899 Other long term (current) drug therapy; Z91.011 Allergy to milk products; I11.0 Hypertensive heart disease with heart failure; E11.9 Type 2 diabetes mellitus without complications; Z96.641 Presence of right artificial hip joint; Z90.49 Acquired absence of other specified parts of digestive tract; Z87.891 Personal history of nicotine dependence; R59.1 Generalized enlarged lymph nodes; Z20.822 Contact with and (suspected) exposure to COVID-19; Z90.79 Acquired absence of other genital organ(s); X58.XXXA Exposure to other specified factors, initial encounter; Y92.9 Unspecified place or not applicable; E87.6 Hypokalemia; I95.1 Orthostatic hypotension; E21.1 Secondary hyperparathyroidism, not elsewhere classified; I27.21 Secondary pulmonary arterial hypertension; E03.9 Hypothyroidism, unspecified; E78.5 Hyperlipidemia, unspecified